=== PATIENT | female | born 1965 | race Caucasian/White ===

== ENCOUNTER → 2016-11-27 | Outpatient (CLI) | payer OTHER ==
[2016-01-14 11:28] VITALS: BP 138/99
--- NOTE | 2016-11-27 16:41 | VAS ---
HISTORY: Left knee pain and swelling with fever for 2 days. Study: Left lower extremity venous Doppler Comparison: None. TECHNIQUE: Real-time dynamic grayscale, color flow and complete spectral Doppler ultrasound examina tion of the major deep venous structures were obtained of the left lower extremity. FINDINGS: Left lower extremity: Real-time examination shows no evidence of thrombus within the common femoral, superficial femoral, or popliteal veins. There is normal compressibility throughout. Color flow dany ging shows normal venous blood flow within the major vessels. Doppler examination shows normal venou s waveforms with appropriate respiratory variation and augmentation. IMPRESSION: 1. Normal left lower extremity venous Doppler, without evidence of DVT. Reported By:
== END ==
LOC: RAD 16:01
PROVIDERS: ATTEND Internal Medicine
DX: M25.562 Pain in left knee (principal); R60.1 Generalized edema
CPT/HCPCS: 93971

== ENCOUNTER → 2017-05-24 | Outpatient (CLI) | payer OTHER ==
[2016-01-14 11:28] VITALS: BP 138/99
--- NOTE | 2017-05-26 16:13 | RAD ---
HISTORY: Preoperative exam for foot surgery Study: Two views of the chest Comparison: None Findings: The trachea is midline. The cardiac silhouette is enlarged. The lungs are clear without focal infil trate or effusion. IMPRESSION: 1. Cardiomegaly. Reported By:
== END | disposition home or self-care (01) ==
LOC: LAB 10:38
PROVIDERS: ATTEND Podiatrist
DX: Z01.810 Encounter for preprocedural cardiovascular examination (principal); Z01.811 Encounter for preprocedural respiratory examination; Z01.812 Encounter for preprocedural laboratory examination; I51.7 Cardiomegaly; M20.12 Hallux valgus (acquired), left foot
CPT/HCPCS: 36415; 71020; 85002

== ENCOUNTER → 2017-08-01 | Outpatient (CLI) | payer OTHER ==
[2016-01-14 11:28] VITALS: BP 138/99
[2017-08-01 18:18] LABS: BLOOD UREA NITROGEN 9 mg/dL (7-18); CARBON DIOXIDE 28.3 mmol/L (21-32); CHLORIDE 102 mmol/L (98-107); CREATININE 0.75 mg/dL (0.55-1.02); PHOSPHORUS 3.2 mg/dL (2.6-4.7); SODIUM 140 mmol/L (136-145); eGFR BLACK RACES > 60 (>60); eGFR NON BLACK RACES > 60 (>60)
== END ==
LOC: LAB 17:45
PROVIDERS: ATTEND Internal Medicine Nephrology
DX: I10 Essential (primary) hypertension (principal)
CPT/HCPCS: 36415; 80069; 82088; 84244

== ENCOUNTER 2017-11-22 10:32 | Emergency (ER) | payer OTHER ==
[2017-11-22 10:36] VITALS: BMI 36.6
[2017-11-22] MEDS ORDERED: ASPIRIN PO ONE (10:43)
[2017-11-22] MEDS ORDERED: NS 1000 ML 1,000 ML IV ONE (10:54)
[2017-11-22 11:05] LABS: BASOPHILS # (AUTO) 0.2 X10^3/uL (0.0-0.1); BASOPHILS % (AUTO) 1.9 % (0.2-1.0); EOSINOPHILS # (AUTO) 0.1 x10^3/uL (0.0-0.2); HEMATOCRIT 36.3 % (36.0-47.0); HEMOGLOBIN 12.8 g/dL (12.0-16.0); LYMPHOCYTES # (AUTO) 2.5 X10^3/uL (1.3-2.9); LYMPHOCYTES % (AUTO) 29.6 % (21.0-51.0); MEAN CORPUSCULAR HEMOGLOBIN 31.2 pg (27.0-34.0); MEAN CORPUSCULAR HGB CONC 35.3 g/dL (33.0-35.0); MEAN CORPUSCULAR VOLUME 88.2 fL (80.0-100.0); MEAN PLATELET VOLUME 6.9 fL (7.4-11.0); MONOCYTES # (AUTO) 0.3 x10^3/uL (0.3-0.8); MONOCYTES % (AUTO) 3.4 % (0.0-13.0); NEUTROPHILS # (AUTO) 5.3 x10^3/uL (2.2-4.8); NEUTROPHILS % (AUTO) 64.1 % (42.0-75.0); PLATELET COUNT 268 X10^3/uL (150.0-450.0); RED BLOOD COUNT 4.11 X10^6/uL (3.5-5.4); RED CELL DISTRIBUTION WIDTH 12.6 % (11.6-16.5); WHITE BLOOD COUNT 8.3 X10^3/uL (3.6-10.0)
[2017-11-22] MEDS ORDERED: NS 1000 ML 1,000 ML ONE (11:06)
[2017-11-22] MEDS ORDERED: ASPIRIN ONE (11:06)
--- NOTE | 2017-11-22 11:13 | RAD ---
Examination: Portable AP chest History: Chest pain Comparison reference 05/24/2017 Findings: Continued normal heart size with clear lungs and pleural spaces. Impression: No significant interval change or acute chest findings. Reported By:
[2017-11-22 11:25] LABS: BLOOD UREA NITROGEN 18 mg/dL (7-18); CALCIUM 9.5 mg/dL (8.5-10.1); CARBON DIOXIDE 27.6 mmol/L (21-32); CHLORIDE 102 mmol/L (98-107); COR NA(FOR HYPERGLY) 141 mmol/L (136-145); CREATININE 1.11 mg/dL (0.55-1.02); SODIUM 140 mmol/L (136-145); TROPONIN I < 0.02 ng/mL (0-1.5); eGFR BLACK RACES > 60 (>60); eGFR NON BLACK RACES 55 (>60)
[2017-11-22 11:28] LABS: ALANINE AMINOTRANSFERASE 30 Units/L (12-78); ALBUMIN 4.1 g/dL (3.4-5.0); ALKALINE PHOSPHATASE 72 Units/L (46-116); ASPARTATE AMINO TRANSFERASE 29 Units/L (15-37); CKMB % 1.6 % (<4); CREATINE KINASE 62 Units/L (26-192); CREATINE KINASE MB < 1.0 ng/mL (0-4.0); MAGNESIUM 1.7 mg/dL (1.7-2.9); TOTAL PROTEIN 8.2 g/dL (6.4-8.2)
[2017-11-22 12:14] VITALS: BP 130/59
--- NOTE | 2017-11-22 12:29 | DR.CP ---
HPI - Time Seen Time seen: 12:20 (seen on arrival to ER room) - PCP Primary Care Physician: TEOFILO - Complaint Chief Complaint:: PT C/O CHEST PAIN STABBING THORUGH TO BACK. PT STATES SHE IS VERY DIZZY AND "DRUNK FEELING". PT STATES SHE HAS BEEN FEELING BAD FOR TWO DAYS , BUT SHE IS JUST WORSE THIS AM. - Source History Provided: Patient - Mode of Arrival Mode of Arrival: Ambulatory - Timing Onset of Chief Complaint: 11/22/17 PMH - PMH Past Medical History: Yes Past Medical History: Dyslipidemia, Hypertension, Kidney Stones, Renal Disease Past Medical History Comment: PE Past Surgical History: Yes Surgical History: Abdominal Surgery, Hysterectomy - Family History History of Family Medical Conditions: Yes Family Medical History: Diabetes Mellitus, Hypertension - Social History Does any household member use tobacco: No Alcohol Use: None Do you use any recreational Drugs:: No Lives With: Family Lives Where: Home - infectious screening In the last 2 months have you had wt loss of >10#?: NO Have you had fever, night sweats or hemotysis?: No Have you traveled outside the country in the last 6 months?: No Isolation: Standard PE - Vitals Vitals: Temperature 98.1 F Pulse Rate 68 Respiratory Rate 18 Blood Pressure [Left Arm] 130/59 Blood Pressure 97/53 O2 Sat by Pulse Oximetry 96 ROR - Labs Reviewed Laboratory Results Reviewed?: Yes (ynesimer, card enzymes neg) Result Diagrams: 11/22/17 10:55 11/22/17 10:55 Laboratory: WBC 8.3 X10^3/uL (3.6-10.0) 11/22/17 10:55 RBC 4.11 X10^6/uL (3.5-5.4) 11/22/17 10:55 Hgb 12.8 g/dL (12.0-16.0) 11/22/17 10:55 Hct 36.3 % (36.0-47.0) 11/22/17 10:55 MCV 88.2 fL (80.0-100.0) 11/22/17 10:55 MCH 31.2 pg (27.0-34.0) 11/22/17 10:55 MCHC 35.3 g/dL (33.0-35.0) H 11/22/17 10:55 RDW 12.6 % (11.6-16.5) 11/22/17 10:55 Plt Count 268 X10^3/uL (150.0-450.0) 11/22/17 10:55 MPV 6.9 fL (7.4-11.0) L 11/22/17 10:55 Neut % (Auto) 64.1 % (42.0-75.0) 11/22/17 10:55 Lymph % (Auto) 29.6 % (21.0-51.0) 11/22/17 10:55 [place] % (Auto) 3.4 % (0.0-13.0) 11/22/17 10:55 Eos % (Auto) 1.0 % (0.9-2.9) 11/22/17 10:55 Baso % (Auto) 1.9 % (0.2-1.0) H 11/22/17 10:55 Neut # (Auto) 5.3 x10^3/uL (2.2-4.8) H 11/22/17 10:55 Lymph # (Auto) 2.5 X10^3/uL (1.3-2.9) 11/22/17 10:55 [place] # (Auto) 0.3 x10^3/uL (0.3-0.8) 11/22/17 10:55 Eos # (Auto) 0.1 x10^3/uL (0.0-0.2) 11/22/17 10:55 Baso # (Auto) 0.2 X10^3/uL (0.0-0.1) H 11/22/17 10:55 Absolute Nucleated RBC 0.0 /100WBC 11/22/17 10:55 INR Target Range - 11/22/17 10:55 INR 0.97 (0.8-1.3) 11/22/17 10:55 APTT 26.9 SECONDS (22.9-36.5) 11/22/17 10:55 PTT Comment - 11/22/17 10:55 D-Dimer 126 ng/mL (0-400) 11/22/17 10:55 Sodium 140 mmol/L (136-145) 11/22/17 10:55 Corrected Sodium 141 mmol/L (136-145) 11/22/17 10:55 Potassium 3.8 mmol/L (3.5-5.1) 11/22/17 10:55 Chloride 102 mmol/L (98-107) 11/22/17 10:55 Carbon Dioxide 27.6 mmol/L (21-32) 11/22/17 10:55 BUN 18 mg/dL (7-18) 11/22/17 10:55 Creatinine 1.11 mg/dL (0.55-1.02) H 11/22/17 10:55 Est GFR (MDRD) Af Amer > 60 (>60) 11/22/17 10:55 Est GFR (MDRD) Non-Af 55 (>60) L 11/22/17 10:55 Glucose 156 mg/dL (65-99) H 11/22/17 10:55 Calcium 9.5 mg/dL (8.5-10.1) 11/22/17 10:55 Corrected Calcium TNP 11/22/17 10:55 Magnesium 1.7 mg/dL (1.7-2.9) 11/22/17 10:55 Total Bilirubin 0.50 mg/dL (0.2-1.0) 11/22/17 10:55 AST 29 Units/L (15-37) 11/22/17 10:55 ALT 30 Units/L (12-78) 11/22/17 10:55 Alkaline Phosphatase 72 Units/L (46-116) 11/22/17 10:55 Creatine Kinase 67 Units/L (26-192) 11/22/17 10:55 CK-MB (CK-2) < 1.0 ng/mL (0-4.0) 11/22/17 10:55 CK/CKMB % Calc 1.5 % (<4) 11/22/17 10:55 Troponin I < 0.02 ng/mL (0-1.5) 11/22/17 10:55 Total Protein 8.2 g/dL (6.4-8.2) 11/22/17 10:55 Albumin 4.1 g/dL (3.4-5.0) 11/22/17 10:55 Globulin 4.1 g/dL (2.5-4.5) 11/22/17 10:55 Albumin/Globulin Ratio 1.0 Ratio (1.1-2.1) L 11/22/17 10:55 - XRAY XRAY Interpreted by: Radiologist Additional Notes - Additional Notes Additional Notes: pt offered admission for r/o but she declines. Feels well now , wants to go home. - Diagnosis Discharge Problem: Volume depletion - Discharge Plan Disposition: 01 HOME, SELF-CARE Condition: Stable - Follow ups/Referrals Follow ups/Referrals: Santana Valle [Primary Care Provider] - 3 days - Instructions
== END 2017-11-22 13:09 | disposition home or self-care (01) ==
LOC: ER 10:38
DX: E86.9 Volume depletion, unspecified (principal); R94.31 Abnormal electrocardiogram [ECG] [EKG]; R07.89 Other chest pain
CPT/HCPCS: 36415; 71045; 80053; 82550; 82553; 83735; 84484; 85025; 85378; 85610; 85730; 93005; 93010; 96365; 99283; A4222

== ENCOUNTER 2018-01-02 17:40 | Emergency (ER) | payer OTHER ==
[2018-01-02 18:02] VITALS: BMI 36.6
--- NOTE | 2018-01-02 18:03 | DR.GENAD ---
HPI - PCP Primary Care Physician: PRISCILLA MIRELES CABINETMAKER APPRENTICE - Complaint/Symptoms Chief Complaint Doctors Comments: Hx. is as noted in nurses notes. She was found unresponsive but aroused with Narcan. She is awake here and talking. Among her home medications she gave upon inquiry includes: Tizanidine, Xanax and Hydrocodone. Chief Complaint:: EMS OUT TO PT UNRESPONSIVE BUT BREATHING, UPON ARRIVAL PER EMS PT WAS BREATHING BUT SHE WAS RESPONSIVE TO VERBAL STIMULI AND PT WAS VERY DROWSY ,,, AND PT WAS TRIED TO WAKE UP BY HER SPOUSE AND SON AND EMS WAS CALLED AND PT WAS GIVEN NARCAN 2 MG IV PER EMS AND PT DID ARROUSE SOME ,,BR SEE NURSES NOTES .. - Nurses notes reviewed Nurses Notes Review: Yes - Source History Provided: Patient, EMS - Mode of Arrival Mode of Arrival: EMS - Timing Onset of Chief Complaint: 01/02/18 PMH - PMH Past Medical History: Yes Past Medical History: Dyslipidemia, Hypertension, Kidney Stones, Renal Disease Past Surgical History: Yes Surgical History: Abdominal Surgery, Hysterectomy - Family History History of Family Medical Conditions: Yes Family Medical History: Diabetes Mellitus, Hypertension - Social History Does patient currently use any type of tobacco product: No Have you used tobacco products in the last 12 months: No Type of Tobacco Use: None Does any household member use tobacco: No Alcohol Use: None Do you use any recreational Drugs:: No Lives With: Family Lives Where: Home - infectious screening In the last 2 months have you had wt loss of >10#?: NO Have you had fever, night sweats or hemotysis?: No Have you traveled outside the country in the last 6 months?: No Isolation: Standard ROS - Review of Systems Constitutional: No Symptoms Reported Eyes: No Symptoms Reported ENTM: No Symptoms Reported Respiratoy: No Symptoms Reported Cardiovascular: No Symptoms Reported Gastrointestinal/Abdominal: No Symptoms Reported Genitourinary: No Symptoms Reported Neurological: Other (Found unresponsive) Musculoskeletal: No Symptoms Reported Integumentary: No Symptoms Reported Hematologic/Lymphatic: No Symptoms Reported Endocrine: No Symptoms Reported Psychiatric: No Symptoms Reported All Other Systems: Reviewed and Negative PE - Vital Signs Vitals: Temperature 98.0 F Pulse Rate [Apical] 85 Pulse Rate [Right Brachial] 99 Pulse Rate 100 Respiratory Rate 14 Blood Pressure [Right Arm] 157/67 Blood Pressure [Left Arm] 155/69 Blood Pressure 150/66 O2 Sat by Pulse Oximetry 97 - General Limitations: No Limitations General Appearance: Alert, In No Apparent Distress, Other (she appears sedated but is easily aroused ) - Head Head Exam: Normal Inspection - Eyes Eye exam: Normal Appearance - ENT ENT Exam: Normal Exam, Normal Oropharynx, Mucous Membranes Dry External Ear Exam: Normal External Inspection - Neck Neck Exam: Normal Inspection, Full ROM, Trachea Midline - Chest Chest Inspection: Normal Inspection - Respiratory Respiratory Exam: Normal Lung Sounds Bilat - Cardiovascular Cardiovascular Exam: Regular Rate, Normal Rhythm, Normal Heart Sounds, +S1, +S2 - Abdominal Exam Abdominal Exam: Normal Inspection, Normal Bowel Sounds, Soft - Extremities Extremities Exam: Normal Inspection - Back Back Exam: Normal Inspection - Neurologic Neurological Exam: Alert, Oriented X3 - Psychiatric Psychiatric Exam: Flat Affect - Skin Skin Exam: Warm, Dry, Intact, Normal Color Course - Reevaluation 1st: Improved 2nd: Resolved - Consultation Consultation Comments: Her presentation and findings were discussed with bridge/structure inspection team leader physician and his recommendation was for her to be d/c home with outpt. f/ u by her provider. - Education/Counseling Education/Counseling: Patient, Family, Education, Counseling Educated On: Treatment, Diagnosis, Prognosis, Needs for Follow Up ROR - Labs Reviewed Result Diagrams: 01/02/18 18:07 01/02/18 18:07 Laboratory: WBC 8.2 X10^3/uL (3.6-10.0) 01/02/18 18:07 RBC 4.13 X10^6/uL (3.5-5.4) 01/02/18 18:07 Hgb 13.0 g/dL (12.0-16.0) 01/02/18 18:07 Hct 36.9 % (36.0-47.0) 01/02/18 18:07 MCV 89.3 fL (80.0-100.0) 01/02/18 18:07 MCH 31.6 pg (27.0-34.0) 01/02/18 18:07 MCHC 35.4 g/dL (33.0-35.0) H 01/02/18 18:07 RDW 12.9 % (11.6-16.5) 01/02/18 18:07 Plt Count 260 X10^3/uL (150.0-450.0) 01/02/18 18:07 MPV 6.7 fL (7.4-11.0) L 01/02/18 18:07 Neut % (Auto) 50.6 % (42.0-75.0) 01/02/18 18:07 Lymph % (Auto) 39.9 % (21.0-51.0) 01/02/18 18:07 [place] % (Auto) 6.6 % (0.0-13.0) 01/02/18 18:07 Eos % (Auto) 1.4 % (0.9-2.9) 01/02/18 18:07 Baso % (Auto) 1.5 % (0.2-1.0) H 01/02/18 18:07 Neut # (Auto) 4.1 x10^3/uL (2.2-4.8) 01/02/18 18:07 Lymph # (Auto) 3.3 X10^3/uL (1.3-2.9) H 01/02/18 18:07 [place] # (Auto) 0.5 x10^3/uL (0.3-0.8) 01/02/18 18:07 Eos # (Auto) 0.1 x10^3/uL (0.0-0.2) 01/02/18 18:07 Baso # (Auto) 0.1 X10^3/uL (0.0-0.1) 01/02/18 18:07 Absolute Nucleated RBC 0.1 /100WBC 01/02/18 18:07 Sodium 140 mmol/L (136-145) 01/02/18 18:07 Corrected Sodium 141 mmol/L (136-145) 01/02/18 18:07 Potassium 3.9 mmol/L (3.5-5.1) 01/02/18 18:07 Chloride 104 mmol/L (98-107) 01/02/18 18:07 Carbon Dioxide 25.2 mmol/L (21-32) 01/02/18 18:07 BUN 16 mg/dL (7-18) 01/02/18 18:07 Creatinine 0.94 mg/dL (0.55-1.02) 01/02/18 18:07 Est GFR (MDRD) Af Amer > 60 (>60) 01/02/18 18:07 Est GFR (MDRD) Non-Af > 60 (>60) 01/02/18 18:07 Glucose 124 mg/dL (65-99) H 01/02/18 18:07 Calcium 8.6 mg/dL (8.5-10.1) 01/02/18 18:07 Corrected Calcium TNP 01/02/18 18:07 Total Bilirubin 0.30 mg/dL (0.2-1.0) 01/02/18 18:07 AST 39 Units/L (15-37) H 01/02/18 18:07 ALT 36 Units/L (12-78) 01/02/18 18:07 Alkaline Phosphatase 66 Units/L (46-116) 01/02/18 18:07 Total Protein 8.1 g/dL (6.4-8.2) 01/02/18 18:07 Albumin 4.1 g/dL (3.4-5.0) 01/02/18 18:07 Globulin 4.0 g/dL (2.5-4.5) 01/02/18 18:07 Albumin/Globulin Ratio 1.0 Ratio (1.1-2.1) L 01/02/18 18:07 Specimen Type Clean catch urine 01/02/18 19:21 Urine Color Yellow (YELLOW) 01/02/18 19:21 Urine Appearance Clear (CLEAR) 01/02/18 19:21 Urine pH 5.0 (5.0 - 8.0) 01/02/18 19:21 Ur Specific [place] 1.010 (1.000-1.030) 01/02/18 19:21 Urine Protein Negative (NEGATIVE) 01/02/18 19:21 Urine Glucose (UA) Negative (NEGATIVE) 01/02/18 19:21 Urine Ketones Negative (NEGATIVE) 01/02/18 19:21 Urine Occult Blood Negative (NEGATIVE) 01/02/18 19:21 Urine Nitrite Negative (NEGATIVE) 01/02/18 19:21 Urine Bilirubin Negative (NEGATIVE) 01/02/18 19:21 Urine Urobilinogen Normal (NORMAL) 01/02/18 19:21 Ur Leukocyte Esterase Negative (NEGATIVE) 01/02/18 19:21 Urine Opiates Screen Positive (NEG=<300) A 01/02/18 19:21 Urine Methadone Screen Negative (NEG=<300) 01/02/18 19:21 Ur Barbiturates Screen Negative (NEG=<200) 01/02/18 19:21 Ur Phencyclidine Scrn Negative (NEG=<25) 01/02/18 19:21 Ur Amphetamines Screen Negative (NEG=<1000) 01/02/18 19:21 U Benzodiazepines Scrn Negative (NEG=<200) 01/02/18 19:21 Urine Cocaine Screen Negative (NEG=<300) 01/02/18 19:21 U Marijuana (THC) Screen Negative (NEG=<50) 01/02/18 19:21 - XRAY XRAY Interpreted by: Radiologist (CT Scan Brain: No acute intracranial hemorrhage.), Self (CXR: NAD) - EKG Rate: 87 [place]: Normal Rhythm: NSR Block: None Hypertrophy: None - Diagnosis Discharge Problem: Altered mental status, Respiratory depression, Drug effect - Discharge Plan Disposition: 01 HOME, SELF-CARE Condition: Stable - Follow ups/Referrals Follow ups/Referrals: Santana Valle [Primary Care Provider] - 3 days - Instructions
[2018-01-02] MEDS ORDERED: ZOFRAN INJ 4 MG VIAL ONE (18:05)
[2018-01-02] MEDS ORDERED: ZOFRAN INJ 4 MG VIAL IVP ONE (18:10)
[2018-01-02 18:17] LABS: BASOPHILS # (AUTO) 0.1 X10^3/uL (0.0-0.1); BASOPHILS % (AUTO) 1.5 % (0.2-1.0); EOSINOPHILS # (AUTO) 0.1 x10^3/uL (0.0-0.2); EOSINOPHILS % (AUTO) 1.4 % (0.9-2.9); HEMATOCRIT 36.9 % (36.0-47.0); LYMPHOCYTES # (AUTO) 3.3 X10^3/uL (1.3-2.9); LYMPHOCYTES % (AUTO) 39.9 % (21.0-51.0); MEAN CORPUSCULAR HEMOGLOBIN 31.6 pg (27.0-34.0); MEAN CORPUSCULAR HGB CONC 35.4 g/dL (33.0-35.0); MEAN CORPUSCULAR VOLUME 89.3 fL (80.0-100.0); MEAN PLATELET VOLUME 6.7 fL (7.4-11.0); MONOCYTES # (AUTO) 0.5 x10^3/uL (0.3-0.8); MONOCYTES % (AUTO) 6.6 % (0.0-13.0); NEUTROPHILS # (AUTO) 4.1 x10^3/uL (2.2-4.8); NEUTROPHILS % (AUTO) 50.6 % (42.0-75.0); PLATELET COUNT 260 X10^3/uL (150.0-450.0); RED BLOOD COUNT 4.13 X10^6/uL (3.5-5.4); RED CELL DISTRIBUTION WIDTH 12.9 % (11.6-16.5); WHITE BLOOD COUNT 8.2 X10^3/uL (3.6-10.0)
--- NOTE | 2018-01-02 18:28 | RAD ---
STUDY: CHEST, ONE VIEW History: Change in mental status. Comparison: November 22, 2017. Findings: The trachea is midline. The lungs are clear of consolidation, significant infiltrate, effusion, or pn eumothorax. The cardiac silhouette, mediastinum and osseous structures are unremarkable. IMPRESSION: 1. No evidence of acute cardiopulmonary abnormality. Reported By:
[2018-01-02 18:31] LABS: ALANINE AMINOTRANSFERASE 36 Units/L (12-78); ALBUMIN 4.1 g/dL (3.4-5.0); ALKALINE PHOSPHATASE 66 Units/L (46-116); BLOOD UREA NITROGEN 16 mg/dL (7-18); CALCIUM 8.6 mg/dL (8.5-10.1); CARBON DIOXIDE 25.2 mmol/L (21-32); CHLORIDE 104 mmol/L (98-107); COR NA(FOR HYPERGLY) 141 mmol/L (136-145); CREATININE 0.94 mg/dL (0.55-1.02); SODIUM 140 mmol/L (136-145); TOTAL PROTEIN 8.1 g/dL (6.4-8.2); eGFR BLACK RACES > 60 (>60); eGFR NON BLACK RACES > 60 (>60)
[2018-01-02 19:24] LABS: ASPARTATE AMINO TRANSFERASE 39 Units/L (15-37)
[2018-01-02 19:29] LABS: BILIRUBIN,URINE NEGATIVE (NEGATIVE); BLOOD/HEMOGLOBIN,URINE NEGATIVE (NEGATIVE); GLUCOSE, URINE NEGATIVE (NEGATIVE); KETONES,URINE NEGATIVE (NEGATIVE); LEUKOCYTE ESTERASE ,URINE NEGATIVE (NEGATIVE); NITRITES,URINE NEGATIVE (NEGATIVE); PROTEIN,URINE NEGATIVE (NEGATIVE); UROBILINOGEN,URINE NORMAL (NORMAL)
[2018-01-02 19:31] LABS: APPEARANCE,URINE CLEAR (CLEAR); COLOR,URINE YELLOW (YELLOW)
--- NOTE | 2018-01-02 19:42 | CT ---
CT head without contrast Indication: Altered mental status Comparison: 01/31/[address] Technique: Axial images from the skullbase to the vertex without contrast. Coronal and sagittal refor mats provided. Findings: There is no acute intracranial hemorrhage, mass or mass effect. No extra-axial fluid collec tion or abnormal area of hypoattenuation suggest large infarct identified. Ventricles and sulci are n ormal. Review of bone windows shows no osseous lesion. Paranasal sinuses and mastoid air cells are cl ear. Impression: No acute intracranial hemorrhage Reported By:
[2018-01-02 20:48] VITALS: BP 168/85
== END 2018-01-02 20:49 | disposition home or self-care (01) ==
LOC: ER 17:43
DX: R41.82 Altered mental status, unspecified (principal); R06.03 Acute respiratory distress; T88.7XXA Unspecified adverse effect of drug or medicament, initial encounter; R94.31 Abnormal electrocardiogram [ECG] [EKG]
CPT/HCPCS: 36415; 70450; 71045; 80053; 80307; 81003; 85025; 93005; 93010; 96365; 96374; 99283; 99285; G0434; J2405

== ENCOUNTER 2022-01-01 12:31 | Inpatient (IN) ==
--- NOTE | 2022-01-01 12:56 | CT ---
HISTORYPossible strokeSTUDYCT brain without contrastCOMPARISONJune 2020 MRITECHNIQUEMultiple axial images of the brain were obtained from the skull base to the vertex [without] administration of IV contrast.Dose reduction techniques including Automated Exposure Control (AEC) and adjustment of mA and kV were utlized.FINDINGS[No acute intraparenchymal hemorrhage or mass can be identified.] [No extra-axial fluid collections are seen.] [No alteration in the attenuation of the brain parenchyma can be identified to suggest acute or subacute ischemic change.] Mild small vessel ischemic changes are noted along with age-appropriate atrophy. [The ventricular system is symmetric and nondilated.] [The extracranial structures are grossly unremarkable.]IMPRESSION[No acute intracranial process can be identified.]Electronically signed by: ROSAURA GERMAIN (January 01, 2022 12:54:32)
[2022-01-01 13:00] VITALS: BMI 38.5
[2022-01-01 13:13] LABS: BASOPHILS % (AUTO) 0.1 % (0.2-1.0); EOSINOPHILS # (AUTO) 0.1 x10^3/uL (0.0-0.2); EOSINOPHILS % (AUTO) 1.1 % (0.9-2.9); HEMATOCRIT 34.5 % (36.0-47.0); HEMOGLOBIN 11.9 g/dL (12.0-16.0); LYMPHOCYTES # (AUTO) 2.6 X10^3/uL (1.3-2.9); LYMPHOCYTES % (AUTO) 27.6 % (21.0-51.0); MEAN CORPUSCULAR HEMOGLOBIN 31.8 pg (27.0-34.0); MEAN CORPUSCULAR HGB CONC 34.4 g/dL (33.0-35.0); MEAN CORPUSCULAR VOLUME 92.5 fL (80.0-100.0); MEAN PLATELET VOLUME 7.6 fL (7.4-11.0); MONOCYTES # (AUTO) 0.7 x10^3/uL (0.3-0.8); MONOCYTES % (AUTO) 7.7 % (0.0-13.0); NEUTROPHILS % (AUTO) 63.5 % (42.0-75.0); RED BLOOD COUNT 3.73 X10^6/uL (3.5-5.4); RED CELL DISTRIBUTION WIDTH 13.2 % (11.6-16.5); WHITE BLOOD COUNT 9.5 X10^3/uL (3.6-10.0)
[2022-01-01] MEDS ORDERED: TORADOL 30 MG VIAL IVP ONE (13:13)
[2022-01-01] MEDS ORDERED: NORFLEX INJ IM ONE (13:13)
--- NOTE | 2022-01-01 13:16 | DR.WEAKNES ---
HPI Time Seen Time Seen by Provider: 01/01/22 13:11 Primary Care Physician Primary Care Physician: DR RED HPI Comment HPI Comment: PATIENT IS 56YR OLD FEMALE WITH HISTORY OF HTN, DM AND TIAS PRESENTS TO ER COMPLAINING OF SLURRED SPEECH, BILATERAL HIP AND LOWER BACK PAIN AND WEAKNESS THAT STARTED LAST NIGHT. NO FEVER OR DYSURIA. FELL 2 WEEKS AGO. S LURRED SPEECH RESOLVE THIS AM. Complaints Chief Complaint Doctors Comments: Lower extremities weakness with bilateral hip pain. slurred speech that has now resolved. Onset last PM Chief Complaint:: "PT C/O BILATERAL HIP PAIN WITH BILATERAL LOWER EXT WEAKNESS, BACK PAIN AND SLURRED SPEECH THAT STARTED LAST NIGHT." ACCORDING TO THE PT THE SLURRED SPEECH HAS RESOLVED. PT DENIES ANY FACIAL DROOPING, UNILATERAL WEAKNESS, AND REPORTS SLURRED SPEECH HAS RESOLVED. REPORTS S/P FALL X 2 WEEKS AGO Reviewed Nurses Notes Reviewed: Yes Source History Provided: Patient Mode of Arrival Mode of Arrival: Wheelchair Timing Onset of Chief Complaint: 12/31/21 Symptom Onset: Known (last PM) Duration Duration: Constant (SLURRED SPEECH RESOLVED) Context Stroke Symptoms: Slurring Location Weakness Location: Right, Left and Leg Associated Signs and Symptoms Associated Signs and Symptoms: denies None PMH PMH Past Medical History: Yes Past Medical History: Diabetes and Hypertension Past Medical History Comment: [place], HIGH CHOLESTEROL, CA IN RIGHT ARM, GERD, TIA Past Surgical History: Yes Surgical History: Hysterectomy Past Surgical History Comment: HEART CATH 12/2021 Family History History of Family Medical Conditions: Yes Family Medical History: Diabetes Mellitus and Hypertension Social History Does patient currently use any type of tobacco product: No Have you used tobacco products in the last 12 months: No Type of Tobacco Use: None Does any household member use tobacco: No Alcohol Use: None Do you use any recreational Drugs:: No Lives With: Spouse Lives Where: Home Travel Risk Coronavirus risk:travel/contact w/high risk person: No Has patient experienced Coronavirus symptoms: No Infectious screening In the last 2 months have you had wt loss of >10#?: NO Have you had fever, night sweats or hemotysis?: No Have you traveled outside the country in the last 6 months?: No Isolation: Standard ROS Review of Systems Constitutional: See HPI and Weakness Eyes: No Symptoms Reported and See HPI ENTM: No Symptoms Reported and See HPI; negative Nose Discharge, Nose Congestion, Drooling or Throat Pain Respiratoy: No Symptoms Reported and See HPI; negative Moist Cough, Short of Breath or Wheezing Cardiovascular: No Symptoms Reported and See HPI; negative Chest Pain Gastrointestinal/Abdominal: negative Abdominal Pain, Nausea or Vomiting Genitourinary: No Symptoms Reported; negative Dysuria Neurological: See HPI and Weakness; negative Headache or Dizziness Musculoskeletal: No Symptoms Reported and See HPI; negative Back Pain Integumentary: No Symptoms Reported, See HPI and Juandice Hematologic/Lymphatic: No Symptoms Reported and See HPI Psychiatric: No Symptoms Reported and See HPI All Other Systems: Reviewed and Negative PE Vital Signs Vitals: Temperature 98.6 F Pulse Rate 78 Respiratory Rate 22 Blood Pressure [Right Arm] 198/73 Blood Pressure 129/58 O2 Sat by Pulse Oximetry 94 General Limitations: No Limitations Head Head Exam Physical: Other (NONE NOTED.) ENT ENT Exam: Normal Oropharynx, Normal External Ear Exam and TM's Normal Bilaterally Mouth Exam: Lip Swelling and Tongue Swelling; negative Drooling or Trismus Throat Exam: Normal Inspection; negative Tonsillar Erythema, Tonsillomegaly or Tonsillar Exudate Neck Neck Exam: Trachea Midline; negative Tenderness Chest Chest Inspection: Normal Inspection and Symmetric Chest Wall Rise; negative Tenderness Respiratory Respiratory Exam: Normal Lung Sounds Bilat; negative Accessory Muscle Use, Chest Wall Tenderness or Respiratory Distress Respiratory Exam: Bilateral: Clear to Auscultation Cardiovascular Cardiovascular Exam: Regular Rate, Normal Rhythm and Normal Heart Sounds; negative Systolic Murmur or Diastolic Murmur Abdominal Exam Abdominal Exam: Normal Bowel Sounds; negative Tenderness Abdominal Tenderness: negative Other (NONE NOTED.) Extremities Extremities Exam: Normal Inspection and Normal Capillary Refill Back Back Exam: negative (R) CVA Tenderness, (L) CVA Tenderness or Paraspinal Tenderness Neurologic Neurological Exam: Alert, Oriented X3 and CN II-XII Intact; negative Motor Sensory Deficit Speech: Fluid Speech Cranial Nerve Exam: EOM Function (II, III, IV, ): Normal, Facial Sensation (V): Normal, Facial Palsy (VII): Normal, Gag reflex (XI): Normal and Tongue Deviation: Normal Motor Strength - LUE: 5/5 Motor Strength - RUE: 5/5 Motor Strength - LLE: 5/5 Motor Strength - RLE: 5/5 Psychiatric Psychiatric Exam: Normal Affect and Normal Mood Skin Skin Exam: Intact MDM Additional Information Obtained Additional Information Obtained From: Old Records Differential Diagnosis Differential Diagnosis: Cabrera's Palsey, CVA, Electrolyte Disorder, Hypoglycemia, Mass Lesion and TIA COURSE Treatment Treatment: SEE ORDERS DONE WHILE PATIENTWAS IN ER. PATIENT GIVEN TORADOL 30MG IV, NORFLEX 60MG IM, ZOFRAN 4MG IV AND ASA 325MG PO WHILE IN ER. LABS, EKG AND XRAY REPORTS DISCUSSED WITH PATIENT. PATIENT HAD TELESTRKE EVALUATION BY NEUROLOGIST. . Consultation Consultation Comments: DISCUSSED PATIENT WITH DR. RED. HE WILL ADMIT PATIENT. Education/Counseling Education/Counseling: Patient Educated On: Diagnosis ROR Labs Reviewed Laboratory Results Reviewed?: Yes Result Diagrams: 01/05/22 05:26 01/05/22 05:26 Laboratory: WBC 9.5 X10^3/uL (3.6-10.0) 01/01/22 13:00 RBC 3.73 X10^6/uL (3.5-5.4) 01/01/22 13:00 Hgb 11.9 g/dL (12.0-16.0) L 01/01/22 13:00 Hct 34.5 % (36.0-47.0) L 01/01/22 13:00 MCV 92.5 fL (80.0-100.0) 01/01/22 13:00 MCH 31.8 pg (27.0-34.0) 01/01/22 13:00 MCHC 34.4 g/dL (33.0-35.0) 01/01/22 13:00 RDW 13.2 % (11.6-16.5) 01/01/22 13:00 Plt Count 232 X10^3/uL (150.0-450.0) 01/01/22 13:00 MPV 7.6 fL (7.4-11.0) 01/01/22 13:00 Neut % (Auto) 63.5 % (42.0-75.0) 01/01/22 13:00 Lymph % (Auto) 27.6 % (21.0-51.0) 01/01/22 13:00 [place] % (Auto) 7.7 % (0.0-13.0) 01/01/22 13:00 Eos % (Auto) 1.1 % (0.9-2.9) 01/01/22 13:00 Baso % (Auto) 0.1 % (0.2-1.0) L 01/01/22 13:00 Neut # (Auto) 6.0 x10^3/uL (2.2-4.8) H 01/01/22 13:00 Lymph # (Auto) 2.6 X10^3/uL (1.3-2.9) 01/01/22 13:00 [place] # (Auto) 0.7 x10^3/uL (0.3-0.8) 01/01/22 13:00 Eos # (Auto) 0.1 x10^3/uL (0.0-0.2) 01/01/22 13:00 Baso # (Auto) 0.0 X10^3/uL (0.0-0.1) 01/01/22 13:00 Absolute Nucleated RBC 0.0 /100WBC 01/01/22 13:00 PT 13.7 SECONDS (11.8-14.3) 01/01/22 13:00 INR Target Range - 01/01/22 13:00 INR 1.08 (0.8-1.3) 01/01/22 13:00 APTT 25.7 SECONDS (22.9-36.5) 01/01/22 13:00 PTT Comment - 01/01/22 13:00 Fibrinogen 287 mg/dL (239-489) 01/01/22 13:00 Sodium 139 mmol/L (136-145) 01/01/22 13:00 Corrected Sodium 139 mmol/L (136-145) 01/01/22 13:00 Potassium 4.7 mmol/L (3.5-5.1) 01/01/22 13:00 Chloride 103 mmol/L (98-107) 01/01/22 13:00 Carbon Dioxide 26.5 mmol/L (21-32) 01/01/22 13:00 BUN 44 mg/dL (7-18) H 01/01/22 13:00 Creatinine 2.24 mg/dL (0.55-1.02) H 01/01/22 13:00 Est GFR (MDRD) Af Amer 29 (>60) L 01/01/22 13:00 Est GFR (MDRD) Non-Af 24 (>60) L 01/01/22 13:00 Glucose 120 mg/dL (65-99) H 01/01/22 13:00 POC Glucose (mg/dL) 117 mg/dL (65-99) H 01/01/22 12:48 Calcium 9.3 mg/dL (8.5-10.1) 01/01/22 13:00 Corrected Calcium TNP 01/01/22 13:00 Total Bilirubin 0.30 mg/dL (0.2-1.0) 01/01/22 13:00 AST 193 Units/L (15-37) H 01/01/22 13:00 ALT 38 Units/L (12-78) 01/01/22 13:00 Alkaline Phosphatase 81 Units/L (46-116) 01/01/22 13:00 Total Protein 7.9 g/dL (6.4-8.2) 01/01/22 13:00 Albumin 4.2 g/dL (3.4-5.0) 01/01/22 13:00 Globulin 3.7 g/dL (2.5-4.5) 01/01/22 13:00 Albumin/Globulin Ratio 1.1 Ratio (1.1-2.1) 01/01/22 13:00 Triglycerides 419 mg/dL (0-150) H 01/01/22 13:00 Cholesterol 233 mg/dL (0-200) H 01/01/22 13:00 LDL Cholesterol, Calc 107 mg/dL (0-100) H 01/01/22 13:00 HDL Cholesterol 42 mg/dL (40-60) 01/01/22 13:00 Cholesterol/HDL Ratio 5.5 (0.0-5.0) H 01/01/22 13:00 SARS-CoV-2 (PCR) Negative (NEGATIVE) 01/01/22 15:13 XRAY XRAY Interpreted by: Radiologist (REPORT NOTED.) and Self EKG Rate: 75 [place]: Normal Rhythm: NSR Block: None Hypertrophy: LVH ST: Nonsp Opioid Opioid Risk Tool Age (Hans box if 16-45): No History of Preadolescent Sexual Abuse: No Total: 0 Total Score Risk Category: Low Risk Copyright: [facility] predicting aberrant behaviors Diagnosis Discharge Problem: Rhabdomyolysis, Brain TIA, Bilateral hip pain, History of dysarthria
[2022-01-01 13:22] LABS: ALANINE AMINOTRANSFERASE 38 Units/L (12-78); ALBUMIN 4.2 g/dL (3.4-5.0); ALKALINE PHOSPHATASE 81 Units/L (46-116); ASPARTATE AMINO TRANSFERASE 193 Units/L (15-37); BLOOD UREA NITROGEN 44 mg/dL (7-18); CALCIUM 9.3 mg/dL (8.5-10.1); CARBON DIOXIDE 26.5 mmol/L (21-32); CHLORIDE 103 mmol/L (98-107); CHOL/HDL RATIO 5.5 (0.0-5.0); CHOLESTEROL 233 mg/dL (0-200); COR NA(FOR HYPERGLY) 139 mmol/L (136-145); CREATININE 2.24 mg/dL (0.55-1.02); HDL CHOLESTEROL 42 mg/dL (40-60); SODIUM 139 mmol/L (136-145); TOTAL PROTEIN 7.9 g/dL (6.4-8.2); TRIGLYCERIDES 419 mg/dL (0-150); eGFR NON BLACK RACES 24 (>60)
[2022-01-01] MEDS ORDERED: ASPIRIN ONE (13:24)
[2022-01-01] MEDS ORDERED: NORFLEX INJ ONE (13:25)
[2022-01-01] MEDS ORDERED: TORADOL 30 MG VIAL ONE (13:25)
[2022-01-01] MEDS: ASPIRIN PO SCH (13:27)
[2022-01-01] MEDS ORDERED: ZOFRAN INJ 4 MG VIAL IVP ONE (13:42)
[2022-01-01] MEDS ORDERED: ZOFRAN INJ 4 MG VIAL ONE (13:47)
--- NOTE | 2022-01-01 14:56 | RAD ---
HISTORYBILATERAL HIP PAINSTUDYHIPS BILATERALCOMPARISONNoneTECHNIQUEAP and frogleg views of the pelvis.FINDINGSMild bilateral hip osteoarthrosis with coxa profunda. Patient is tilted within the scanner. SI joints appear preserved. Mild pubic symphysis osteoarthrosis. Calcifications in the pelvis are likely phleboliths. No acute fracture or aggressive osseous lesion.IMPRESSIONMild bilateral hip osteoarthrosis with coxa profunda. No acute fracture.Electronically signed by: Micky Tran (January 01, 2022 14:56:02)
[2022-01-01] MEDS ORDERED: CATAPRES TAB 0.1 MG PO PRN (16:50)
[2022-01-01] MEDS: NS 1,000 ML IV 1,000 ML IV SCH (17:59)
[2022-01-01] MEDS: NORCO 10/325 TAB PO PRN (18:05)
[2022-01-01 18:11] LABS: BILIRUBIN,URINE NEGATIVE (NEGATIVE); BLOOD/HEMOGLOBIN,URINE 2+ (NEGATIVE); GLUCOSE, URINE NEGATIVE (NEGATIVE); KETONES,URINE NEGATIVE (NEGATIVE); LEUKOCYTE ESTERASE ,URINE NEGATIVE (NEGATIVE); NITRITES,URINE NEGATIVE (NEGATIVE); PROTEIN,URINE 1+ (NEGATIVE); UROBILINOGEN,URINE NORMAL (NORMAL)
[2022-01-01 18:20] LABS: APPEARANCE,URINE SLIGHTLY HAZY (CLEAR); BACTERIA,URINE 1+ /HPF (NEGATIVE); COLOR,URINE YELLOW (YELLOW); SQUAMOUS EPITHELIAL CELL,UR MANY /HPF (NEGATIVE)
[2022-01-01 18:21] LABS: HYALINE CASTS, URINE FEW /LPF (NEGATIVE)
[2022-01-01 19:29] LABS: CREATINE KINASE MB 68.1 ng/mL (0-4.0)
--- NOTE | 2022-01-01 19:42 | DR.CONSULT ---
CONSULT Consultation for Day of: Date: 01/01/22 Chief Complaint Chief Complaint: weakness Allergies Allergies Allergy/AdvReac Type Severity Reaction Status Date / Time No Known Drug Allergies Allergy Verified 03/29/21 14:27 History of Present Illness History of Present Illness: [facility] Services Date of Service: 01/01/2022 12:32:40 Diagnosis: R53.1 - Weakness I63.9 - Cerebrovascular accident (CVA), unspecified mechanism (HCC) Impression: Patient is a 56 y/o R HW brought in by daughter for difficulty walking, being weak in both her legs. Not a candidate for tpa given time from onset. She does have a history of TIAs. NIHSS 2, for b/l leg pain. Since last night, she has been having hip pain since last night and that is when weakness started. She fell at the doorsteps, she was walking down the steps she fell. Stroke versus hip pain/weakness. Xray hip. Stroke work up. Brain MR, no CTA given low NIHSS scale. Neurology to follow along. Metrics: Last Known Well: 12/31/2021 18:00:00 [facility] Notification Time: 01/01/2022 12:32:39 Arrival Time: 01/01/2022 12:32:00 Stamp Time: 01/01/2022 12:32:40 Initial Response Time: 01/01/2022 12:35:00 Symptoms: Difficulty walking and weakness. NIHSS Start Assessment Time: 01/01/2022 12:43:00 Patient is not a candidate for Thrombolytic. Thrombolytic Medical Decision: 01/01/2022 12:38:00 Patient was not deemed candidate for Thrombolytic because of following reasons: Last Well Known Above 4.5 Hours. No disabling symptoms. CT head showed no acute hemorrhage or acute core infarct. ED Physician notified of diagnostic impression and management plan on 01/01/2022 13:00:00 Advanced Imaging: Advanced Imaging Not Recommended because: Clinical presentation is not suggestion of LVO or Low clinical suspicion of LVO based on presentation Our recommendations are outlined below. Recommendations: Stroke/Telemetry Floor Neuro Checks Bedside Swallow Eval DVT Prophylaxis IV Fluids, Normal Saline Head of Bed 30 Degrees Euglycemia and Avoid Hyperthermia (PRN Acetaminophen) Antihypertensives PRN if Blood pressure is greater than 220/120 or there is a concern for End organ damage/contraindications for permissive HTN. If blood pressure is greater than 220/120 give labetalol PO or IV or Vasotec IV with a goal of 15% reduction in BP during the first 24 hours. Routine Consultation with Inhouse Neurology for Follow up Care Sign Out: Discussed with Emergency Department Provider Discussed with Rapid Response Team History of Present Illness: Patient is a 56 year old Female. Patient was brought by private transportation with symptoms of Difficulty walking and weakness. Patient is a 56 y/o R HW brought in by daughter for difficulty walking, being weak in both her legs. Not a candidate for tpa given time from onset. She does have a history of TIAs. NIHSS 2, for b/l leg pain. Since last night, she has been having hip pain since last night and that is when weakness started. She fell at the doorsteps, she was walking down the steps she fell. Last seen normal was beyond 4.5 hours of presentation. There is no history of hemorrhagic complications or intracranial hemorrhage. There is no history of Recent Anticoagulants. There is no history of recent major surgery. There is no history of recent stroke. Past Medical History: TIA Social History: Smoking: No Alcohol Use: No Drug Use: No Family History: she has TIA, father with stroke Review of System: 14 Points Review of Systems was performed and was negative except mentioned in HPI. Anticoagulant use: No Antiplatelet use: Yes ASA 325mg Allergies: Reviewed,NKDA Examination: BP(144/62), Pulse(78), Blood Glucose(120) 1A: Level of Consciousness - Alert; keenly responsive + 0 1B: Ask Month and Age - Both Questions Right + 0 1C: Blink Eyes & Squeeze Hands - Performs Both Tasks + 0 2: Test Horizontal Extraocular Movements - Normal + 0 3: Test Visual Levi - No Visual Loss + 0 4: Test Facial Palsy (Use Grimace if Obtunded) - Normal symmetry + 0 5A: Test Left Arm Motor Drift - No Drift for 10 Seconds + 0 5B: Test Right Arm Motor Drift - No Drift for 10 Seconds + 0 6A: Test Left Leg Motor Drift - Drift, but doesn't hit bed + 1 6B: Test Right Leg Motor Drift - Drift, but doesn't hit bed + 1 7: Test Limb Ataxia (FNF/Heel-Morin) - No Ataxia + 0 8: Test Sensation - Normal; No sensory loss + 0 9: Test Language/Aphasia - Normal; No aphasia + 0 10: Test Dysarthria - Normal + 0 11: Test Extinction/Inattention - No abnormality + 0 NIHSS Score: 2 NIHSS Free Text : R strength is slightly weaker than Left. Pre-Morbid Modified [place] Scale: 0 Points = No symptoms at all Patient/Family was informed the Neurology Consult would occur via TeleHealth consult by way of interactive audio and video telecommunications and consented to receiving care in this manner. Patient is being evaluated for possible acute neurologic impairment and high probability of imminent or life-threatening deterioration. I spent total of 50 minutes providing care to this patient, including time for face to face visit via telemedicine, review of medical records, imaging studies and discussion of findings with providers, the patient and/or family. Dr John Griffiths [facility] Case [id number] Past Medical History Past Medical History: Diabetes and Hypertension Past Surgical History Surgical History: Hysterectomy Family History Family Medical History: Cancer Social History Does patient currently use any type of tobacco product: No Have you used tobacco products in the last 12 months: No Type of Tobacco Use: None Does any household member use tobacco: No Alcohol Use: None Medications Home Medications: No Known Drug Allergies Allergy (Verified 03/29/21 14:27) CONTINUE taking the following medications acetaminophen-codeine 1 tab PO Q6HR PRN 01/01/22 [History] clonidine HCl 0.1 mg PO DAILY PRN 01/01/22 [History] gabapentin 300 mg PO TID PRN 01/01/22 [History] omeprazole [Prilosec] 20 mg PO BID 01/01/22 [History] pantoprazole [Protonix] 40 mg PO DAILY 01/01/22 [History] promethazine 25 mg PO Q4-6H PRN 01/01/22 [History] rosuvastatin [Crestor] 20 mg PO HS 01/01/22 [History] tizanidine [Zanaflex] 4 mg PO TID PRN 01/01/22 [History] verapamil 240 mg PO DAILY 01/01/22 [History] Physical Exam Vital Signs: Temperature 97.8 F Pulse Rate [Right Brachial] 82 Pulse Rate 79 Respiratory Rate 18 Blood Pressure [Right Arm] 126/66 Blood Pressure 129/61 O2 Sat by Pulse Oximetry 100
[2022-01-01 20:07] LABS: CKMB % 0.6 % (<4)
[2022-01-01] MEDS ORDERED: CRESTOR TAB 10 MG PO SCH (21:00)
[2022-01-01] MEDS ORDERED: GLUCOPHAGE ONE (21:24)
[2022-01-01] MEDS: NEURONTIN CAP 300 MG PO PRN (22:01)
[2022-01-01] MEDS: VASOTEC TAB 20 MG PO SCH (22:02)
[2022-01-01] MEDS: PriLOSEC PO SCH (22:02)
[2022-01-01] MEDS: GLUCOPHAGE PO SCH (22:02)
[2022-01-01] MEDS: XANAX PO PRN (22:03)
[2022-01-02 01:50] LABS: CREATINE KINASE MB 41.3 ng/mL (0-4.0)
[2022-01-02 02:09] LABS: CKMB % 0.6 % (<4)
[2022-01-02 05:57] LABS: BASOPHILS # (AUTO) 0.1 X10^3/uL (0.0-0.1); BASOPHILS % (AUTO) 0.9 % (0.2-1.0); EOSINOPHILS # (AUTO) 0.1 x10^3/uL (0.0-0.2); HEMATOCRIT 35.5 % (36.0-47.0); HEMOGLOBIN 12.2 g/dL (12.0-16.0); LYMPHOCYTES # (AUTO) 2.3 X10^3/uL (1.3-2.9); LYMPHOCYTES % (AUTO) 27.3 % (21.0-51.0); MEAN CORPUSCULAR HEMOGLOBIN 31.8 pg (27.0-34.0); MEAN CORPUSCULAR HGB CONC 34.3 g/dL (33.0-35.0); MEAN CORPUSCULAR VOLUME 92.8 fL (80.0-100.0); MEAN PLATELET VOLUME 7.6 fL (7.4-11.0); MONOCYTES # (AUTO) 0.5 x10^3/uL (0.3-0.8); MONOCYTES % (AUTO) 5.5 % (0.0-13.0); NEUTROPHILS # (AUTO) 5.5 x10^3/uL (2.2-4.8); NEUTROPHILS % (AUTO) 65.3 % (42.0-75.0); RED BLOOD COUNT 3.83 X10^6/uL (3.5-5.4); RED CELL DISTRIBUTION WIDTH 12.9 % (11.6-16.5); WHITE BLOOD COUNT 8.3 X10^3/uL (3.6-10.0)
[2022-01-02 06:05] LABS: ALANINE AMINOTRANSFERASE 36 Units/L (12-78); ALKALINE PHOSPHATASE 83 Units/L (46-116); ASPARTATE AMINO TRANSFERASE 166 Units/L (15-37); BLOOD UREA NITROGEN 36 mg/dL (7-18); CALCIUM 8.9 mg/dL (8.5-10.1); CARBON DIOXIDE 27.2 mmol/L (21-32); CHLORIDE 104 mmol/L (98-107); COR NA(FOR HYPERGLY) 140 mmol/L (136-145); CREATININE 1.26 mg/dL (0.55-1.02); MAGNESIUM 1.3 mg/dL (1.7-2.9); SODIUM 138 mmol/L (136-145); TOTAL PROTEIN 7.7 g/dL (6.4-8.2); eGFR NON BLACK RACES 47 (>60)
[2022-01-02] MEDS ORDERED: PROTONIX TAB 40 MG PO SCH (09:00)
[2022-01-02] MEDS ORDERED: GLUCOPHAGE ONE ×2 (09:52→20:15)
[2022-01-02] MEDS: ASPIRIN PO SCH (10:03)
[2022-01-02] MEDS: TOPROL XL PO SCH (10:04)
[2022-01-02] MEDS: PriLOSEC PO SCH ×2 (10:04→20:36)
[2022-01-02] MEDS: VASOTEC TAB 20 MG PO SCH ×2 (10:04→20:36)
[2022-01-02] MEDS: GLUCOPHAGE PO SCH ×2 (10:04→20:36)
[2022-01-02] MEDS: CALAN SR 240 MG PO SCH (10:05)
[2022-01-02] MEDS: NS 1,000 ML IV 1,000 ML IV SCH ×2 (12:32→19:59)
[2022-01-02] MEDS: NORCO 10/325 TAB PO PRN ×2 (12:39→20:36)
--- NOTE | 2022-01-02 18:33 | DR.H&P ---
H&P - History & Physical for Day of: H&P Date: 01/01/22 - Chief Complaint Chief Complaint: BILATERAL HIP PAIN, LOWER EXTREMITY WEAKNESS, SLURRED SPEECH - History of Present Illness History of Present Illness: IS A 56 YEAR OLD PATIENT OF OURS. SHE PRESENTED TO THE ER WITH COMPLAINTS OF BILATERAL HIP PAIN, LOWER EXTREMITY WEAKNESS, LOW BACK PAIN, AND SLURRED SPEECH. SYMPTOMS STARTED ONE NIGHT PRIOR TO ARRIVAL. BY THE TIME THAT SHE PRESENTED TO THE ER, THE SLURRED SPEECH HAD IMPROVED. SHE REPORTS FALLING TWO WEEKS BEFORE. HER PMH INCLUDES HTN, DM II, ID, GERD, TIA, HIGH CHOLESTEROL. SHE IS FOLLOWED BY , PHYSICAL THERAPIST CLINIC DIRECTOR. SHE HAD A HEART CATH EARLIER IN THE MONTH AND A NECK CTA LAST MONTH. WORK-UP WAS CLEAR. ON ARRIVAL TO THE ER, VITALS WERE 98.6-78-15-95%-144/60. LABS WERE OBTAINED. WBC 9.5, RBC 3.73, HGB 11.9, HCT 34.5, PT/INR AND PTT WERE WITHIN NORMAL LIMITS. SODIUM 139, POTASSIUM 4.7, CHLORIDE 103, CARBON DIOXIDE 26.5, BUN 44, CREATININE 2.24, GLUCOSE 120, CALCIUM 9.3, TOTAL BILI 0.30, AST 193, ALT 38, ALK PHOS 81, TOTAL PROTEIN 7.9, ALBUMIN 4.2, TRIGLYCERIDES 419, CHOLESTEROL 233, LDL 107, CREATINE KINASE 43956, CK-MB 68.1, TROPONIN 15.7. URINALYSIS REVEALED: 0-2 WBC, RBC 3-5, BACTERIA 1+, LEUKOCYTES NEGATIVE. COVID-[address] WAS OBTAINED AND WAS NEGATIVE FOR ACUTE PROCESS. EKG REVEALED NSR WITH HR 75. BILATERAL HIP XRAYS WERE OBTAINED AND REVEALED: Mild bilateral hip osteoarthrosis with coxa profunda. No acute fracture. A TELENEUROLOGY CONSULT WAS DONE. NEUROLOGIST RECOMMENDED Q1H NEURO CHECKS AND ANTIHYPERTENSIVES NEEDED. PATIENT WAS ADMITTED FOR FURTHER EVALUATION AND TREATMENT OF RHABDOMYOLYSIS, TIA, AND BILATERAL HIP PAIN. SHE WAS STARTED ON NORMAL SALINE AT 125ML/HR AND HER HOME MEDICATIONS WERE RESUMED, WITH THE EXCEPTION OF THE CRESTOR, THIS MAY BE THE CAUSE OF THE RHABDO. WE WILL REPEAT CREATINE KINASE, CBC, CMP, AND MAG IN THE MORNING. TIME SPENT ON CLINICAL ASSESSMENT, REVIEWING LABS AND IMAGING, DECISION MAKING, AND DOCUMENTATION GREATER THAN 75 MINUTES. - Past Medical History Past Medical History: Diabetes, Dyslipidemia, GERD, Hypertension, ID Additional Medical History: TIA - Past Surgical History Surgical History: Hysterectomy - Family History Family Medical History: Cancer - Social History Does patient currently use any type of tobacco product: No Have you used tobacco products in the last 12 months: No Type of Tobacco Use: None Does any household member use tobacco: No Alcohol Use: None - Medications Home Medications: No Known Drug Allergies Allergy (Verified 03/29/21 14:27) CONTINUE taking the following medications acetaminophen-codeine 1 tab PO Q6HR PRN 01/01/22 [History] clonidine HCl 0.1 mg PO DAILY PRN 01/01/22 [History] gabapentin 300 mg PO TID PRN 01/01/22 [History] omeprazole [Prilosec] 20 mg PO BID 01/01/22 [History] pantoprazole [Protonix] 40 mg PO DAILY 01/01/22 [History] promethazine 25 mg PO Q4-6H PRN 01/01/22 [History] rosuvastatin [Crestor] 20 mg PO HS 01/01/22 [History] tizanidine [Zanaflex] 4 mg PO TID PRN 01/01/22 [History] verapamil 240 mg PO DAILY 01/01/22 [History] - Review of Systems Constitutional: Weakness Eyes: No Symptoms Reported ENT: No Symptoms Reported Respiratory: No Symptoms Reported Cardiovascular: No Symptoms Reported Gastrointestinal: No Symptoms Reported Genitourinary: No Symptoms Reported Musculoskeletal: See HPI, Back Pain, Leg Pain, Other (HIP PAIN ) Skin: No Symptoms Reported Neurological: See HPI, Weakness, Change in Speech - Physical Exam Vital Signs: Temperature 97.8 F Pulse Rate [Right Brachial] 87 Pulse Rate 79 Respiratory Rate 20 Blood Pressure [Right Arm] 129/74 Blood Pressure 129/61 O2 Sat by Pulse Oximetry 96 Oriented: Normal Eyes: Normal Ear: Normal Nose: Normal Throat: Normal Respiratory: Clear Throughout Cardiovascular: Normal : Normal Auscultation: Bowel Sounds: Normal Palpation: Normal Tenderness: Normal Skin: Normal Musculoskeletal: Right, Left, Hip, Leg, Back:Lumbar, Tender Psychiatric: Normal Mood Description: Calm Affect: Normal Speech Pattern: Clear - Assessment/Plan (1) Rhabdomyolysis Qualifiers: Rhabdomyolysis type: non-traumatic Qualified Code(s): M62.82 - Rhabdomyolysis Status: Acute Plan: ADMIT, NORMAL SALINE AT 125ML/HR AND HER HOME MEDICATIONS WERE RESUMED, WITH THE EXCEPTION OF THE CRESTOR. MONITOR CBC, CMP, CREATINE KINASE (2) TIA (transient ischemic attack) Status: Acute Plan: NEURO CHECKS (3) Bilateral hip pain Status: Chronic Plan: CONTINUE HOME MEDS (4) Essential hypertension Status: Chronic (5) Gastroesophageal reflux disease Status: Chronic - Allergies Allergies/Adverse Reactions: Allergies Allergy/AdvReac Type Severity Reaction Status Date / Time No Known Drug Allergies Allergy Verified 03/29/21 14:27
[2022-01-02] MEDS: ZANAFLEX PO PRN (18:35)
[2022-01-02] MEDS: NEURONTIN CAP 300 MG PO PRN (20:36)
[2022-01-02] MEDS: XANAX PO PRN (20:37)
[2022-01-03] MEDS: NS 1,000 ML IV 1,000 ML IV SCH ×4 (04:55→23:15)
[2022-01-03 06:16] LABS: BASOPHILS % (AUTO) 0.5 % (0.2-1.0); EOSINOPHILS # (AUTO) 0.1 x10^3/uL (0.0-0.2); EOSINOPHILS % (AUTO) 1.4 % (0.9-2.9); HEMATOCRIT 31.3 % (36.0-47.0); HEMOGLOBIN 10.8 g/dL (12.0-16.0); LYMPHOCYTES # (AUTO) 2.5 X10^3/uL (1.3-2.9); LYMPHOCYTES % (AUTO) 42.4 % (21.0-51.0); MEAN CORPUSCULAR HEMOGLOBIN 32.2 pg (27.0-34.0); MEAN CORPUSCULAR HGB CONC 34.6 g/dL (33.0-35.0); MEAN CORPUSCULAR VOLUME 92.9 fL (80.0-100.0); MEAN PLATELET VOLUME 7.5 fL (7.4-11.0); MONOCYTES # (AUTO) 0.3 x10^3/uL (0.3-0.8); MONOCYTES % (AUTO) 5.6 % (0.0-13.0); NEUTROPHILS # (AUTO) 2.9 x10^3/uL (2.2-4.8); NEUTROPHILS % (AUTO) 50.1 % (42.0-75.0); RED BLOOD COUNT 3.37 X10^6/uL (3.5-5.4); WHITE BLOOD COUNT 5.8 X10^3/uL (3.6-10.0)
[2022-01-03] MEDS: NORCO 10/325 TAB PO PRN ×2 (06:18→13:30)
[2022-01-03 06:39] LABS: ALANINE AMINOTRANSFERASE 37 Units/L (12-78); ALBUMIN 3.4 g/dL (3.4-5.0); ALKALINE PHOSPHATASE 72 Units/L (46-116); ASPARTATE AMINO TRANSFERASE 102 Units/L (15-37); BLOOD UREA NITROGEN 24 mg/dL (7-18); CALCIUM 8.3 mg/dL (8.5-10.1); CARBON DIOXIDE 25.9 mmol/L (21-32); CHLORIDE 107 mmol/L (98-107); COR NA(FOR HYPERGLY) 140 mmol/L (136-145); CREATININE 1.02 mg/dL (0.55-1.02); MAGNESIUM 1.3 mg/dL (1.7-2.9); SODIUM 139 mmol/L (136-145); TOTAL PROTEIN 6.8 g/dL (6.4-8.2); eGFR NON BLACK RACES 59 (>60)
[2022-01-03 06:40] LABS: CREATINE KINASE 2664 Units/L (26-192)
[2022-01-03] MEDS ORDERED: GLUCOPHAGE ONE ×2 (08:00→20:21)
[2022-01-03] MEDS: ASPIRIN PO SCH (09:46)
[2022-01-03] MEDS: GLUCOPHAGE PO SCH ×2 (09:46→20:55)
[2022-01-03] MEDS: PriLOSEC PO SCH ×2 (09:47→20:56)
[2022-01-03] MEDS: CALAN SR 240 MG PO SCH (09:47)
[2022-01-03] MEDS: TOPROL XL PO SCH (09:48)
[2022-01-03] MEDS: VASOTEC TAB 20 MG PO SCH ×2 (09:48→20:57)
[2022-01-03] MEDS: TORADOL 15 MG VIAL IVP SCH ×2 (09:55→18:04)
[2022-01-03] MEDS: MAGNESIUM SULFATE 1 GRAM/100 mL PREMIX 1 G/100 ML BAG IV PRN ×4 (09:59→15:15)
[2022-01-03] MEDS: ZANAFLEX PO PRN ×2 (11:09→16:16)
--- NOTE | 2022-01-03 20:18 | PCM.PROG ---
Progress Note - Progress Note for Day of Date of Exam: 01/02/22 - Subjective Subjective: WAS ADMITTED INPATIENT STATUS FOR TREATMENT OF RHABDOMYOLYSIS, TIA, INTRACTABLE HIP PAIN. SHE HAS A PMH OF HTN, GERD, LA, HYPERLIPIDEMIA. SHE HAD A TELENEUROLOGY CONSULT ON ADMISSION AND WAS CLEARED BY NEUROLOGIST. TODAY, SHE IS ALERT AND ORIENTED, LYING IN BED ON MORNING ROUNDS. SHE CONTINUE WITH COMPLAINTS OF BILATERAL HIP PAIN AND LEG WEAKNESS. SHE ALSO REPORTS LOW BACK PAIN AT TIMES. ON EXAMINATION, HEART IS REGULAR IN RATE AND RHYTHM. BILATERAL LUNGS ARE CLEAR TO AUSCULTATION. ABDOMEN IS ROUND, SOFT, AND NON-TENDER WITH NORMAL BOWEL SOUNDS NOTED IN ALL QUADRANTS. TENDERNESS NOTED TO BILATERAL HIPS. PAIN IS WORSE WITH MOVEMENT AND BEARING WEIGHT. SHE DOES HAVE A HISTORY OF OSTEOARTHRITIS. TENDERNESS NOTED TO LUMBAR-SACRAL AREA. GOOD MOVEMENT AND STRENGTH NOTED TO LOWER EXTREMITIES. NO UPPER OR LOWER EXTREMITY EDEMA NOTED. HER VITALS THIS MORNING ARE: 98.1-83-20-93%-106/53. LABS WERE OBTAINED. WBC 8.3, RBC 3.83, HGB 12.2, HCT 35.5, PLT COUNT 222, SODIUM 138, POTASSIUM 4.5, CHLORIDE 104, BUN 36, CREATININE 1.26, GLUCOSE 163, CALCIUM 8.9, MAGNESIUM 1.3, TOTAL BILI 0.40, AST 166, ALT 36, ALK PHOS 83, TOTAL PROTEIN 7.7, ALBUMIN 4.0, CREATINE KINASE 7440, CK-MB 41.3. SHE IS CURRENTLY RECEIVING NORMAL SALINE AT 125ML/HR AND HER HOME MEDICATIONS WERE RESUMED, WITH THE EXCEPTION OF THE CRESTOR, THIS MAY BE THE CAUSE OF THE RHABDO. OTHERWISE, WE WILL CONTINUE W ITH CURRENT PLAN OF CARE TODAY. WE PLAN TO FOLLOW-UP WITH AM LABS AND CONTINUE TO MONITOR. TIME SPENT ON CLINICAL ASSESSMENT, REVIEWING LABS AND IMAGING, DECISION MAKING, AND DOCUMENTATION GREATER THAN 45 MINUTES. - Past Medical Family Social History Past Med/Fam/Surg Hx: No changes since H&P Allergies: Allergies No Known Drug Allergies Allergy (Verified 03/29/21 14:27) - Review of Systems ROS: No change since H&P - Vital Signs and I&O's Vital Signs: Temperature 97.8 F Pulse Rate [Right Brachial] 65 Pulse Rate 79 Respiratory Rate 20 Blood Pressure [Right Arm] 103/49 Blood Pressure 129/61 O2 Sat by Pulse Oximetry 96 Intake and Output: Intake & Output 01/01/22 01/02/22 01/03/22 01/04/22 11:59 11:59 11:59 11:59 Intake Total 1760 / 1760 3700 / 3700 1494 / 1494 Balance 1760 / 1760 3700 / 3700 1494 / 1494 - Physical Exam Oriented: Normal Eyes: Normal Ear: Normal Nose: Normal Throat: Normal Respiratory: Normal Cardiovascular: Normal : Normal Auscultation: Bowel Sounds: Normal Palpation: Normal Tenderness: Normal Skin: Normal Musculoskeletal: Right, Left, Hip, Leg, Back:Lumbar, Tender Psychiatric: Normal Mood Description: Calm Affect: Normal Speech Pattern: Clear, Appropriate - Laboratory and Diagnostics Result Diagrams: 01/03/22 05:26 01/03/22 05:26 Labs: Laboratory WBC 5.8 X10^3/uL (3.6-10.0) 01/03/22 05:26 RBC 3.37 X10^6/uL (3.5-5.4) L 01/03/22 05:26 Hgb 10.8 g/dL (12.0-16.0) L 01/03/22 05:26 Hct 31.3 % (36.0-47.0) L 01/03/22 05:26 MCV 92.9 fL (80.0-100.0) 01/03/22 05:26 MCH 32.2 pg (27.0-34.0) 01/03/22 05: MCHC 34.6 g/dL (33.0-35.0) 01/03/22 05:26 RDW 13.0 % (11.6-16.5) 01/03/22 05:26 Plt Count 189 X10^3/uL (150.0-450.0) 01/03/22 05:26 MPV 7.5 fL (7.4-11.0) 01/03/22 05:26 Neut % (Auto) 50.1 % (42.0-75.0) 01/03/22 05:26 Lymph % (Auto) 42.4 % (21.0-51.0) 01/03/22 05:26 [place] % (Auto) 5.6 % (0.0-13.0) 01/03/22 05:26 Eos % (Auto) 1.4 % (0.9-2.9) 01/03/22 05:26 Baso % (Auto) 0.5 % (0.2-1.0) 01/03/22 05:26 Neut # (Auto) 2.9 x10^3/uL (2.2-4.8) 01/03/22 05:26 Lymph # (Auto) 2.5 X10^3/uL (1.3-2.9) 01/03/22 05:26 [place] # (Auto) 0.3 x10^3/uL (0.3-0.8) 01/03/22 05:26 Eos # (Auto) 0.1 x10^3/uL (0.0-0.2) 01/03/22 05:26 Baso # (Auto) 0.0 X10^3/uL (0.0-0.1) 01/03/22 05:26 Absolute Nucleated RBC 0.1 /100WBC 01/03/22 05:26 PT 13.9 SECONDS (11.8-14.3) 01/02/22 05:39 INR Target Range - 01/02/22 05:39 INR 1.10 (0.8-1.3) 01/02/22 05:39 APTT 26.1 SECONDS (22.9-36.5) 01/02/22 05:39 PTT Comment - 01/02/22 05:39 Fibrinogen 287 mg/dL (239-489) 01/01/22 13:00 Sodium 139 mmol/L (136-145) 01/03/22 05:26 Corrected Sodium 140 mmol/L (136-145) 01/03/22 05:26 Potassium 4.6 mmol/L (3.5-5.1) 01/03/22 05:26 Chloride 107 mmol/L (98-107) 01/03/22 05:26 Carbon Dioxide 25.9 mmol/L (21-32) 01/03/22 05:26 BUN 24 mg/dL (7-18) H 01/03/22 05:26 Creatinine 1.02 mg/dL (0.55-1.02) 01/03/22 05:26 Est GFR (MDRD) Af Amer > 60 (>60) 01/03/22 05:26 Est GFR (MDRD) Non-Af 59 (>60) 01/03/22 05:26 Glucose 133 mg/dL (65-99) H 01/03/22 05:26 POC Glucose (mg/dL) 178 mg/dL (65-99) H 01/03/22 16:32 Calcium 8.3 mg/dL (8.5-10.1) L 01/03/22 05:26 Corrected Calcium TNP 01/03/22 05:26 Magnesium 1.3 mg/dL (1.7-2.9) L 01/03/22 05:26 Total Bilirubin 0.20 mg/dL (0.2-1.0) 01/03/22 05:26 AST 102 Units/L (15-37) H 01/03/22 05:26 ALT 37 Units/L (12-78) 01/03/22 05:26 Alkaline Phosphatase 72 Units/L (46-116) 01/03/22 05:26 Creatine Kinase 2664 Units/L (26-192) H 01/03/22 05:26 CK-MB (CK-2) 41.3 ng/mL (0-4.0) H 01/02/22 01:16 CK/CKMB % Calc 0.6 % (<4) 01/02/22 01:16 Troponin I High Sens 14.6 ng/L (4.0-60.0) 01/02/22 01:16 Total Protein 6.8 g/dL (6.4-8.2) 01/03/22 05:26 Albumin 3.4 g/dL (3.4-5.0) 01/03/22 05:26 Globulin 3.4 g/dL (2.5-4.5) 01/03/22 05:26 Albumin/Globulin Ratio 1.0 Ratio (1.1-2.1) L 01/03/22 05:26 Triglycerides 419 mg/dL (0-150) H 01/01/22 13:00 Cholesterol 233 mg/dL (0-200) H 01/01/22 13:00 LDL Cholesterol, Calc 107 mg/dL (0-100) H 01/01/22 13:00 HDL Cholesterol 42 mg/dL (40-60) 01/01/22 13:00 Cholesterol/HDL Ratio 5.5 (0.0-5.0) H 01/01/22 13:00 Specimen Type Clean catch urine 01/01/22 17:53 Urine Color Yellow (YELLOW) 01/01/22 17:53 Urine Appearance Slightly hazy (CLEAR) 01/01/22 17:53 Urine pH 5.0 (5.0 - 8.0) 01/01/22 17:53 Ur Specific [place] 1.025 (1.000-1.030) 01/01/22 17:53 Urine Protein 1+ (NEGATIVE) 01/01/22 17:53 Urine Glucose (UA) Negative (NEGATIVE) 01/01/22 17:53 Urine Ketones Negative (NEGATIVE) 01/01/22 17:53 Urine Blood 2+ (NEGATIVE) 01/01/22 17:53 Urine Nitrite Negative (NEGATIVE) 01/01/22 17:53 Urine Bilirubin Negative (NEGATIVE) 01/01/22 17:53 Urine Urobilinogen Normal (NORMAL) 01/01/22 17:53 Ur Leukocyte Esterase Negative (NEGATIVE) 01/01/22 17:53 Urine RBC 3-5 /HPF (0-3) A 01/01/22 17:53 Urine WBC 0-2 /HPF (0-5) 01/01/22 17:53 Ur Squamous Epith Cells Many /HPF (NEGATIVE) 01/01/22 17:53 Urine Bacteria 1+ /HPF (NEGATIVE) 01/01/22 17:53 Hyaline Casts Few /LPF (NEGATIVE) 01/01/22 17:53 Ur Culture Indicated? No/not indicated 01/01/22 17:53 SARS-CoV-2 (PCR) Negative (NEGATIVE) 01/01/22 15:13 - Plan (1) Rhabdomyolysis Status: Acute Qualifiers: Rhabdomyolysis type: non-traumatic Qualified Code(s): M62.82 - Rhabd omyolysis Plan: NORMAL SALINE AT 125ML/HR AND HER HOME MEDICATIONS WERE RESUMED, WITH THE EXCEPTION OF THE CRESTOR. MONITOR CBC, CMP, CREATINE KINASE (2) TIA (transient ischemic attack) Status: Acute Plan: NEURO CHECKS (3) Bilateral hip pain Status: Chronic Plan: CONTINUE HOME MEDS (4) Essential hypertension Status: Chronic (5) Gastroesophageal reflux disease Status: Chronic
[2022-01-03] MEDS ORDERED: NS 1,000 ML IV 500 ML IV ONE (22:42)
[2022-01-03 23:39] LABS: CREATINE KINASE MB 3.8 ng/mL (0-4.0)
[2022-01-03 23:45] LABS: CKMB % 0.2 % (<4)
[2022-01-04] MEDS: TORADOL 15 MG VIAL IVP SCH ×3 (01:03→21:03)
[2022-01-04 04:49] LABS: BASOPHILS % (AUTO) 0.6 % (0.2-1.0); EOSINOPHILS # (AUTO) 0.1 x10^3/uL (0.0-0.2); EOSINOPHILS % (AUTO) 0.7 % (0.9-2.9); HEMATOCRIT 30.3 % (36.0-47.0); HEMOGLOBIN 10.5 g/dL (12.0-16.0); LYMPHOCYTES # (AUTO) 2.6 X10^3/uL (1.3-2.9); LYMPHOCYTES % (AUTO) 31.3 % (21.0-51.0); MEAN CORPUSCULAR HEMOGLOBIN 32.5 pg (27.0-34.0); MEAN CORPUSCULAR HGB CONC 34.8 g/dL (33.0-35.0); MEAN CORPUSCULAR VOLUME 93.2 fL (80.0-100.0); MONOCYTES # (AUTO) 0.5 x10^3/uL (0.3-0.8); MONOCYTES % (AUTO) 5.6 % (0.0-13.0); NEUTROPHILS # (AUTO) 5.1 x10^3/uL (2.2-4.8); NEUTROPHILS % (AUTO) 61.8 % (42.0-75.0); RED BLOOD COUNT 3.24 X10^6/uL (3.5-5.4); RED CELL DISTRIBUTION WIDTH 13.2 % (11.6-16.5); WHITE BLOOD COUNT 8.2 X10^3/uL (3.6-10.0)
[2022-01-04 05:09] LABS: ALANINE AMINOTRANSFERASE 35 Units/L (12-78); ALBUMIN 3.4 g/dL (3.4-5.0); ALKALINE PHOSPHATASE 75 Units/L (46-116); ASPARTATE AMINO TRANSFERASE 90 Units/L (15-37); BLOOD UREA NITROGEN 28 mg/dL (7-18); CALCIUM 8.6 mg/dL (8.5-10.1); CHLORIDE 107 mmol/L (98-107); COR NA(FOR HYPERGLY) 138 mmol/L (136-145); CREATININE 1.45 mg/dL (0.55-1.02); MAGNESIUM 2.4 mg/dL (1.7-2.9); SODIUM 137 mmol/L (136-145); TOTAL PROTEIN 6.6 g/dL (6.4-8.2); eGFR NON BLACK RACES 40 (>60)
[2022-01-04 05:13] LABS: CREATINE KINASE 1857 Units/L (26-192)
[2022-01-04] MEDS: NS 1,000 ML IV 1,000 ML IV SCH ×4 (06:18→23:07)
[2022-01-04] MEDS ORDERED: TORADOL 15 MG VIAL IVP PRN (08:29)
[2022-01-04] MEDS ORDERED: ZANAFLEX PO PRN (08:31)
[2022-01-04] MEDS ORDERED: GLUCOPHAGE ONE ×2 (09:31→20:28)
[2022-01-04] MEDS: GLUCOPHAGE PO SCH ×2 (10:00→20:42)
[2022-01-04] MEDS: ASPIRIN PO SCH (10:00)
[2022-01-04] MEDS: PriLOSEC PO SCH ×2 (10:00→20:42)
[2022-01-04] MEDS: VASOTEC TAB 20 MG PO SCH ×2 (10:00→20:42)
[2022-01-04] MEDS: CALAN SR 240 MG PO SCH (10:03)
[2022-01-04] MEDS: MUCINEX DM PO SCH ×2 (10:41→20:42)
[2022-01-04] MEDS ORDERED: ROBITUSSIN DM PO PRN (11:49)
[2022-01-04] MEDS: PHENERGAN TAB 25 MG PO PRN ×2 (12:25→18:55)
--- NOTE | 2022-01-04 13:20 | RAD ---
HISTORYCOUGHSTUDYCHEST x-ray, 1 VIEWCOMPARISONNoneFINDINGSProbable CHF and pulmonary edema. Perihilar densities could possibly be due to atypical pneumonia, though. No pneumothorax or pleural effusion is seen.IMPRESSIONProbable CHF and pulmonary edema. Less likely perihilar densities are due to atypical pneumonia.Electronically signed by: Stuart Almeida (January 04, 2022 13:19:35)
--- NOTE | 2022-01-04 13:44 | PCM.PROG ---
Progress Note - Progress Note for Day of Date of Exam: 01/03/22 - Subjective Subjective: WAS ADMITTED INPATIENT STATUS FOR TREATMENT OF RHABDOMYOLYSIS, TIA, INTRACTABLE HIP PAIN. SHE HAS A PMH OF HTN, GERD, PR, HYPERLIPIDEMIA. SHE HAD A TELENEUROLOGY CONSULT ON ADMISSION AND WAS CLEARED BY NEUROLOGIST. TODAY, SHE IS ALERT AND ORIENTED, LYING IN BED ON MORNING ROUNDS. SHE CONTINUE WITH COMPLAINTS OF BILATERAL HIP PAIN AND LEG WEAKNESS. SHE ALSO REPORTS LOW BACK PAIN AT TIMES. SYMPTOMS ARE SLIGHTLY BETTER TODAY. ON EXAMINATION, HEART IS REGULAR IN RATE AND RHYTHM. BILATERAL LUNGS ARE CLEAR TO AUSCULTATION. ABDOMEN IS ROUND, SOFT, AND NON-TENDER WITH NORMAL BOWEL SOUNDS NOTED IN ALL QUADRANTS. TENDERNESS NOTED TO BILATERAL HIPS. PAIN IS WORSE WITH MOVEMENT AND BEARING WEIGHT. SHE DOES HAVE A HISTORY OF OSTEOARTHRITIS OF HIPS. TENDERNESS NOTED TO LUMBAR-SACRAL AREA. GOOD MOVEMENT AND STRENGTH NOTED TO LOWER EXTREMITIES. NO UPPER OR LOWER EXTREMITY EDEMA NOTED. HER VITALS THIS MORNING ARE: 97.7-96-20-94%-121/62. LABS WERE OBTAINED. WBC 5.8, RBC 3.37, HGB 10.8, HCT 31.3, SODIUM 138, POTASSIUM 4.5, CHLORIDE 104, BUN 36, CREATININE 1.26, GLUCOSE 163, CALCIUM 8.9, MAGNESIUM 1.3, AST 166, ALT 36, ALK PHOS 83, TOTAL PROTEIN 7.7, ALBUMIN 4.0 SHE IS CURRENTLY RECEIVING NORMAL SALINE AT 125ML/HR AND HER HOME MEDICATIONS WERE RESUMED, WITH THE EXCEPTION OF THE C RESTOR, THIS MAY BE THE CAUSE OF THE RHABDO. TODAY, WE WILL ADD TORADOL 15MG IV Q8H. OTHERWISE, WE WILL CONTINUE WITH CURRENT PLAN OF CARE TODAY. WE PLAN TO FOLLOW-UP WITH AM LABS AND CONTINUE TO MONITOR. TIME SPENT ON CLINICAL ASSESSMENT, REVIEWING LABS AND IMAGING, DECISION MAKING, AND DOCUMENTATION GREATER THAN 45 MINUTES. - Past Medical Family Social History Past Med/Fam/Surg Hx: No changes since H&P Allergies: Allergies No Known Drug Allergies Allergy (Verified 03/29/21 14:27) - Review of Systems ROS: No change since H&P - Vital Signs and I&O's Vital Signs: Temperature 97.8 F Pulse Rate [Right Brachial] 42 Pulse Rate 81 Respiratory Rate 15 Blood Pressure [Right Arm] 68/35 Blood Pressure 145/92 O2 Sat by Pulse Oximetry 98 Intake and Output: Intake & Output 01/02/22 01/03/22 01/04/22 01/05/22 11:59 11:59 11:59 11:59 Intake Total 1760 / 1760 3700 / 3700 4063 / 4063 Balance 1760 / 1760 3700 / 3700 4063 / 4063 - Physical Exam Oriented: Normal Eyes: Normal Ear: Normal Nose: Normal Throat: Normal Respiratory: Normal Cardiovascular: Normal : Normal Auscultation: Bowel Sounds: Normal Tenderness: Normal Skin: Normal Musculoskeletal: Right, Left, Hip, Leg, Back:Lumbar, Tender Psychiatric: Normal Mood Description: Calm Affect: Normal Speech Pattern: Clear, Appropriate - Laboratory and Diagnostics Result Diagrams: 01/04/22 04:12 01/04/22 04:12 Labs: Laboratory WBC 8.2 X10^3/uL (3.6-10.0) 01/04/22 04:12 RBC 3.24 X10^6/uL (3.5-5.4) L 01/04/22 04:12 Hgb 10.5 g/dL (12.0-16.0) L 01/04/22 04:12 Hct 30.3 % (36.0-47.0) L 01/04/22 04:12 MCV 93.2 fL (80.0-100.0) 01/04/22 04:12 MCH 32.5 pg (27.0-34.0) 01/04/22 04:12 MCHC 34.8 g/dL (33.0-35.0) 01/04/22 04:12 RDW 13.2 % (11.6-16.5) 01/04/22 04:12 Plt Count 170 X10^3/uL (150.0-450.0) 01/04/22 04:12 MPV 8.0 fL (7.4-11.0) 01/04/22 04:12 Neut % (Auto) 61.8 % (42.0-75.0) 01/04/22 04:12 Lymph % (Auto) 31.3 % (21.0-51.0) 01/04/22 04:12 [place] % (Auto) 5.6 % (0.0-13.0) 01/04/22 04:12 Eos % (Auto) 0.7 % (0.9-2.9) L 01/04/22 04:12 Baso % (Auto) 0.6 % (0.2-1.0) 01/04/22 04:12 Neut # (Auto) 5.1 x10^3/uL (2.2-4.8) H 01/04/22 04:12 Lymph # (Auto) 2.6 X10^3/uL (1.3-2.9) 01/04/22 04:12 [place] # (Auto) 0.5 x10^3/uL (0.3-0.8) 01/04/22 04:12 Eos # (Auto) 0.1 x10^3/uL (0.0-0.2) 01/04/22 04:12 Baso # (Auto) 0.0 X10^3/uL (0.0-0.1) 01/04/22 04:12 Absolute Nucleated RBC 0.0 /100WBC 01/04/22 04:12 PT 13.9 SECONDS (11.8-14.3) 01/02/22 05:39 INR Target Range - 01/02/22 05:39 INR 1.10 (0.8-1.3) 01/02/22 05:39 APTT 26.1 SECONDS (22.9-36.5) 01/02/22 05:39 PTT Comment - 01/02/22 05:39 Fibrinogen 287 mg/dL (239-489) 01/01/22 13:00 Sodium 137 mmol/L (136-145) 01/04/22 04:12 Corrected Sodium 138 mmol/L (136-145) 01/04/22 04:12 Potassium 5.7 mmol/L (3.5-5.1) H 01/04/22 04:12 Chloride 107 mmol/L (98-107) 01/04/22 04:12 Carbon Dioxide 26.0 mmol/L (21-32) 01/04/22 04:12 BUN 28 mg/dL (7-18) H 01/04/22 04:12 Creatinine 1.45 mg/dL (0.55-1.02) H 01/04/22 04:12 Est GFR (MDRD) Af Amer 48 (>60) L 01/04/22 04:12 Est GFR (MDRD) Non-Af 40 (>60) L 01/04/22 04:12 Glucose 123 mg/dL (65-99) H 01/04/22 04:12 POC Glucose (mg/dL) 129 mg/dL (65-99) H 01/04/22 11:41 Calcium 8.6 mg/dL (8.5-10.1) 01/04/22 04:12 Corrected Calcium TNP 01/04/22 04:12 Magnesium 2.4 mg/dL (1.7-2.9) 01/04/22 04:12 Total Bilirubin 0.20 mg/dL (0.2-1.0) 01/04/22 04:12 AST 90 Units/L (15-37) H 01/04/22 04:12 ALT 35 Units/L (12-78) 01/04/22 04:12 Alkaline Phosphatase 75 Units/L (46-116) 01/04/22 04:12 Creatine Kinase 1857 Units/L (26-192) H 01/04/22 04:12 CK-MB (CK-2) 3.8 ng/mL (0-4.0) 01/03/22 23:03 CK/CKMB % Calc 0.2 % (<4) 01/03/22 23:03 Troponin I High Sens 11.5 ng/L (4.0-60.0) 01/03/22 23:03 Total Protein 6.6 g/dL (6.4-8.2) 01/04/22 04:12 Albumin 3.4 g/dL (3.4-5.0) 01/04/22 04:12 Globulin 3.2 g/dL (2.5-4.5) 01/04/22 04:12 Albumin/Globulin Ratio 1.1 Ratio (1.1-2.1) 01/04/22 04:12 Triglycerides 419 mg/dL (0-150) H 01/01/22 13:00 Cholesterol 233 mg/dL (0-200) H 01/01/22 13:00 LDL Cholesterol, Calc 107 mg/dL (0-100) H 01/01/22 13:00 HDL Cholesterol 42 mg/dL (40-60) 01/01/22 13:00 Cholesterol/HDL Ratio 5.5 (0.0-5.0) H 01/01/22 13:00 Specimen Type Clean catch urine 01/01/22 17:53 Urine Color Yellow (YELLOW) 01/01/22 17:53 Urine Appearance Slightly hazy (CLEAR) 01/01/22 17:53 Urine pH 5.0 (5.0 - 8.0) 01/01/22 17:53 Ur Specific [place] 1.025 (1.000-1.030) 01/01/22 17:53 Urine Protein 1+ (NEGATIVE) 01/01/22 17:53 Urine Glucose (UA) Negative (NEGATIVE) 01/01/22 17:53 Urine Ketones Negative (NEGATIVE) 01/01/22 17:53 Urine Blood 2+ (NEGATIVE) 01/01/22 17:53 Urine Nitrite Negative (NEGATIVE) 01/01/22 17:53 Urine Bilirubin Negative (NEGATIVE) 01/01/22 17:53 Urine Urobilinogen Normal (NORMAL) 01/01/22 17:53 Ur Leukocyte Esterase Negative (NEGATIVE) 01/01/22 17:53 Urine RBC 3-5 /HPF (0-3) A 01/01/22 17:53 Urine WBC 0-2 /HPF (0-5) 01/01/22 17:53 Ur Squamous Epith Cells Many /HPF (NEGATIVE) 01/01/22 17:53 Urine Bacteria 1+ /HPF (NEGATIVE) 01/01/22 17:53 Hyaline Casts Few /LPF (NEGATIVE) 01/01/22 17:53 Ur Culture Indicated? No/not indicated 01/01/22 17:53 SARS-CoV-2 (PCR) Negative (NEGATIVE) 01/01/22 15:13 - Plan (1) Rhabdomyolysis Status: Acute Qualifiers: Rhabdomyolysis type: non-traumatic Qualified Code(s): M62.82 - Rhabdomyolysis Plan: NORMAL SALINE AT 125ML/HR AND HER HOME MEDICATIONS WERE RESUMED, WITH THE EXCEPTION OF THE CRESTOR. MONITOR CBC, CMP, CREATINE KINASE (2) TIA (transient ischemic attack) Status: Acute Plan: NEURO CHECKS (3) Bilateral hip pain Status: Chronic Plan: CONTINUE HOME MEDS (4) Essential hypertension Status: Chronic (5) Gastroesophageal reflux disease Status: Chronic
[2022-01-04] MEDS: NEURONTIN CAP 300 MG PO PRN (20:42)
[2022-01-05 05:33] LABS: BASOPHILS # (AUTO) 0.1 X10^3/uL (0.0-0.1); BASOPHILS % (AUTO) 0.8 % (0.2-1.0); EOSINOPHILS % (AUTO) 0.5 % (0.9-2.9); HEMATOCRIT 36.9 % (36.0-47.0); HEMOGLOBIN 12.6 g/dL (12.0-16.0); LYMPHOCYTES # (AUTO) 2.6 X10^3/uL (1.3-2.9); LYMPHOCYTES % (AUTO) 26.7 % (21.0-51.0); MEAN CORPUSCULAR HEMOGLOBIN 31.6 pg (27.0-34.0); MEAN CORPUSCULAR HGB CONC 34.1 g/dL (33.0-35.0); MEAN CORPUSCULAR VOLUME 92.7 fL (80.0-100.0); MEAN PLATELET VOLUME 7.5 fL (7.4-11.0); MONOCYTES # (AUTO) 0.3 x10^3/uL (0.3-0.8); MONOCYTES % (AUTO) 3.5 % (0.0-13.0); NEUTROPHILS # (AUTO) 6.5 x10^3/uL (2.2-4.8); NEUTROPHILS % (AUTO) 68.5 % (42.0-75.0); RED BLOOD COUNT 3.99 X10^6/uL (3.5-5.4); RED CELL DISTRIBUTION WIDTH 12.9 % (11.6-16.5); WHITE BLOOD COUNT 9.5 X10^3/uL (3.6-10.0)
[2022-01-05] MEDS: TORADOL 15 MG VIAL IVP SCH (05:43)
[2022-01-05] MEDS: PHENERGAN TAB 25 MG PO PRN (05:48)
[2022-01-05 05:59] LABS: ALANINE AMINOTRANSFERASE 35 Units/L (12-78); ALBUMIN 3.9 g/dL (3.4-5.0); ALKALINE PHOSPHATASE 85 Units/L (46-116); ASPARTATE AMINO TRANSFERASE 65 Units/L (15-37); BLOOD UREA NITROGEN 24 mg/dL (7-18); CALCIUM 8.7 mg/dL (8.5-10.1); CARBON DIOXIDE 25.5 mmol/L (21-32); CHLORIDE 107 mmol/L (98-107); COR NA(FOR HYPERGLY) 143 mmol/L (136-145); MAGNESIUM 1.8 mg/dL (1.7-2.9); SODIUM 142 mmol/L (136-145); TOTAL PROTEIN 7.9 g/dL (6.4-8.2); eGFR NON BLACK RACES 54 (>60)
[2022-01-05 06:06] LABS: CREATINE KINASE 1191 Units/L (26-192)
[2022-01-05] MEDS ORDERED: GLUCOPHAGE ONE (07:12)
[2022-01-05 08:05] VITALS: BP 187/78
[2022-01-05] MEDS: MUCINEX DM PO SCH (08:32)
[2022-01-05] MEDS: ASPIRIN PO SCH (08:33)
[2022-01-05] MEDS: GLUCOPHAGE PO SCH (08:33)
[2022-01-05] MEDS: PriLOSEC PO SCH (08:33)
[2022-01-05] MEDS: VASOTEC TAB 20 MG PO SCH (08:34)
[2022-01-05] MEDS: CALAN SR 240 MG PO SCH (09:46)
== END 2022-01-05 11:15 | disposition home or self-care (01) | DRG 69 ==
LOC: MED/SURG 12:31 → ER 12:31 → OBSVTOIN 15:21 → MED/SURG 16:00 → ICU 01-03 22:31 → MED/SURG 01-04 14:46
PROVIDERS: ADMIT Internal Medicine; ATTEND Internal Medicine
DX: M25.551 Pain in right hip; M54.59 Other low back pain; Z20.822 Contact with and (suspected) exposure to COVID-19; Z91.81 History of falling; M62.82 Rhabdomyolysis; I10 Essential (primary) hypertension; E78.2 Mixed hyperlipidemia; R53.1 Weakness; K21.9 Gastro-esophageal reflux disease without esophagitis; R26.89 Other abnormalities of gait and mobility; E11.65 Type 2 diabetes mellitus with hyperglycemia; G45.9 Transient cerebral ischemic attack, unspecified; M25.552 Pain in left hip

== ENCOUNTER 2022-09-09 14:45 | Observation (INO) ==
[2022-09-09] MEDS ORDERED: NS 500 ML IV 500 ML IV ONE ×2 (15:03→15:14)
--- NOTE | 2022-09-09 15:03 | DR.GENAD ---
HPI Time Seen Time Seen by Provider: 09/09/22 15:01 Complaint/Symptoms Chief Complaint Doctors Comments: 56 y/o female presents for evaluation. Started with slurred speech several hours ago. Currently improving. Last known well around 9 am. May have started around 11 am (> 3 hours ago). + headache, dull. Denies visual changes, weakness of the exts. + bilateral hand numbness. + pain radiating down R side. Denies recent illness. Has had TIA episodes in the past. Taking ASA. Nurses notes reviewed Nurses Notes Review: Yes Source History Provided: Patient Mode of Arrival Mode of Arrival: Ambulatory PMH PM Past Medical History: Diabetes, Dyslipidemia, GERD, Hypertension and OR Past Surgical History: Yes Surgical History: Hysterectomy Family History Family Medical History: Cancer Social History Do you use any recreational Drugs:: No ROS Review of Systems Constitutional: No Symptoms Reported Eyes: No Symptoms Reported ENTM: No Symptoms Reported Respiratoy: No Symptoms Reported Cardiovascular: No Symptoms Reported Gastrointestinal/Abdominal: No Symptoms Reported Genitourinary: No Symptoms Reported Neurological: See HPI Musculoskeletal: No Symptoms Reported Hematologic/Lymphatic: No Symptoms Reported Psychiatric: No Symptoms Reported All Other Systems: Reviewed and Negative PE Vital Signs Vitals: Temperature 98.4 F Pulse Rate 63 Respiratory Rate 12 Blood Pressure [Right Arm] 131/60 Blood Pressure [Left Arm] 167/72 Blood Pressure 142/67 O2 Sat by Pulse Oximetry 95 General General Appearance: Alert, In No Apparent Distress and Other (Speech understandable. ) Head Head Exam: Normal Inspection Eyes Eye exam: PERRL and EOMI ENT ENT Exam: Normal Exam, Normal Oropharynx and Mucous Membranes Moist Neck Neck Exam: Normal Inspection and Full ROM; negative Tenderness Respiratory Respiratory Exam: Normal Lung Sounds Bilat; negative Accessory Muscle Use or Respiratory Distress Cardiovascular Cardiovascular Exam: Regular Rate, Normal Rhythm and Normal Heart Sounds Abdominal Exam Abdominal Exam: Normal Inspection, Normal Bowel Sounds and Soft; negative Tenderness Extremities Extremities Exam: Normal Inspection and Full ROM; negative Tenderness or Edema Neurologic Neurological Exam: Alert, Oriented X3, CN II-XII Intact and Other (+ cerebellar intact. Speech slightly off, but is easily understandable. ) Skin Skin Exam: Warm and Dry COURSE Treatment Treatment: 56 y/o female wqith difficulty with speech x several hours, currently improving. No focal deficits at present. Speech understandable, but not baseline. W/u initiated. Brain CT without obvious acute abnormalities. Labs overall acceptable. 1750 - discussed with Dr Mcgarry, will admit for further observation, attempt to obtain a brain MRI in the AM, as well as carotid dopplers. ROR Labs Reviewed Result Diagrams: 09/09/22 15:06 09/09/22 15:06 Laboratory: WBC 8.6 X10^3/uL (3.6-10.0) 09/09/22 15:06 RBC 3.62 X10^6/uL (3.5-5.4) 09/09/22 15:06 Hgb 11.3 g/dL (12.0-16.0) L 09/09/22 15:06 Hct 33.4 % (36.0-47.0) L 09/09/22 15:06 MCV 92.2 fL (80.0-100.0) 09/09/22 15:06 MCH 31.2 pg (27.0-34.0) 09/09/22 15:06 MCHC 33.8 g/dL (33.0-35.0) 09/09/22 15:06 RDW 12.8 % (11.6-16.5) 09/09/22 15:06 Plt Count 217 X10^3/uL (150.0-450.0) 09/09/22 15:06 MPV 6.8 fL (7.4-11.0) L 09/09/22 15:06 Neut % (Auto) 52.8 % (42.0-75.0) 09/09/22 15:06 Lymph % (Auto) 38.2 % (21.0-51.0) 09/09/22 15:06 [place] % (Auto) 6.3 % (0.0-13.0) 09/09/22 15:06 Eos % (Auto) 1.9 % (0.9-2.9) 09/09/22 15:06 Baso % (Auto) 0.8 % (0.2-1.0) 09/09/22 15:06 Neut # (Auto) 4.5 x10^3/uL (2.2-4.8) 09/09/22 15:06 Lymph # (Auto) 3.3 X10^3/uL (1.3-2.9) H 09/09/22 15:06 [place] # (Auto) 0.5 x10^3/uL (0.3-0.8) 09/09/22 15:06 Eos # (Auto) 0.2 x10^3/uL (0.0-0.2) 09/09/22 15:06 Baso # (Auto) 0.1 X10^3/uL (0.0-0.1) 09/09/22 15:06 Absolute Nucleated RBC 0.0 /100WBC 09/09/22 15:06 Sodium 139 mmol/L (136-145) 09/09/22 15:06 Corrected Sodium TNP 09/09/22 15:06 Potassium 4.1 mmol/L (3.5-5.1) 09/09/22 15:06 Chloride 102 mmol/L (98-107) 09/09/22 15:06 Carbon Dioxide 33.2 mmol/L (21-32) H 09/09/22 15:06 BUN 21 mg/dL (7-18) H 09/09/22 15:06 Creatinine 1.33 mg/dL (0.55-1.02) H 09/09/22 15:06 Est GFR (MDRD) Af Amer 53 (>60) L 09/09/22 15:06 Est GFR (MDRD) Non-Af 44 (>60) L 09/09/22 15:06 Glucose 103 mg/dL (65-99) H 09/09/22 15:06 Calcium 9.1 mg/dL (8.5-10.1) 09/09/22 15:06 Corrected Calcium TNP 09/09/22 15:06 Total Bilirubin 0.30 mg/dL (0.2-1.0) 09/09/22 15:06 AST 27 Units/L (15-37) 09/09/22 15:06 ALT 23 Units/L (12-78) 09/09/22 15:06 Alkaline Phosphatase 63 Units/L (46-116) 09/09/22 15:06 Total Protein 7.6 g/dL (6.4-8.2) 09/09/22 15:06 Albumin 3.9 g/dL (3.4-5.0) 09/09/22 15:06 Globulin 3.7 g/dL (2.5-4.5) 09/09/22 15:06 Albumin/Globulin Ratio 1.1 Ratio (1.1-2.1) 09/09/22 15:06 Lipase 144 Units/L (73-393) 09/09/22 15:06 Specimen Type Clean catch urine 09/09/22 16:58 Urine Color Yellow (YELLOW) 09/09/22 16:58 Urine Appearance Clear (CLEAR) 09/09/22 16:58 Urine pH 5.0 (5.0 - 8.0) 09/09/22 16:58 Ur Specific [place] 1.025 (1.000-1.030) 09/09/22 16:58 Urine Protein 2+ (NEGATIVE) 09/09/22 16:58 Urine Glucose (UA) Negative (NEGATIVE) 09/09/22 16:58 Urine Ketones 1+ (NEGATIVE) 09/09/22 16:58 Urine Blood 1+ (NEGATIVE) 09/09/22 16:58 Urine Nitrite Negative (NEGATIVE) 09/09/22 16:58 Urine Bilirubin Negative (NEGATIVE) 09/09/22 16:58 Urine Urobilinogen Normal (NORMAL) 09/09/22 16:58 Ur Leukocyte Esterase 1+ (NEGATIVE) 09/09/22 16:58 Urine RBC 3-5 /HPF (0-3) A 09/09/22 16:58 Urine WBC 3-5 /HPF (0-5) 09/09/22 16:58 Ur Squamous Epith Cells Many /HPF (NEGATIVE) 09/09/22 16:58 Urine Bacteria Negative /HPF (NEGATIVE) 09/09/22 16:58 Ur Culture Indicated? No/not indicated 09/09/22 16:58 EKG Rate: 64 [place]: Normal Rhythm: NSR Block: 1 ST: Normal Opioid Opioid Risk Tool Age (Hans box if 16-45): No History of Preadolescent Sexual Abuse: No Total: 0 Total Score Risk Category: Low Risk Copyright: Jose GR predicting aberrant behaviors Discharge Plan Diagnosis Discharge Problem: Brain TIA Discharge Plan Patient Disposition: 09 ADMITTED INPATIENT Condition: Stable Prescriptions: No Action enalapril maleate 20 MG tablet 20 mg PO BID alprazolam [Xanax] 1 MG tablet 0.5 mg PO DAILY PRN (Reason: Anxiety) hydrocodone-acetaminophen 10 MG/325 MG tablet 1 tab PO Q8H PRN (Reason: Pain) clonidine HCl 0.1 mg Tablet 0.1 mg PO DAILY PRN pantoprazole [Protonix] 40 mg Tablet,Delayed Release (Dr/Ec) 40 mg PO DAILY promethazine 25 mg Tablet 25 mg PO Q4-6H PRN gabapentin 300 mg Capsule 300 mg PO TID PRN omeprazole 20 mg Capsule,Delayed Release(Dr/Ec) 20 mg PO BID verapamil 240 mg Tablet Extended Release 240 mg PO DAILY tizanidine [Zanaflex] 4 mg Capsule 4 mg PO TID PRN acetaminophen-codeine 1 TAB tablet 1 tab PO Q6HR PRN metformin 500 mg tablet 500 mg PO BID Health Concerns: Post Hospitalization: new medications and changes needed to prevent readmission or further decline. Pt educated and given instructions on all concerns. Plan of Treatment: Continue with present treatment and follow up plan. Pt is to keep follow up appointment as instructed and take medications as ordered. Orders to Discharge Patient Discharge Orders: Transfer (Routine); Ordered 09/09/22 Ordered By: Papa Colon Follow ups/Referrals Follow ups/Referrals: PRISCILLA MIRELES [Primary Care Provider] - 3 days
--- NOTE | 2022-09-09 15:12 | EKG ---
Test Reason : slurred speech Blood Pressure : */* mmHG Vent. Rate : 64 BPM Atrial Rate : 64 BPM P-R Int : 218 ms QRS Dur : 92 ms QT Int : 464 ms P-R-T Axes : 41 -8 0 degrees QTc Int : 478 ms Sinus rhythm with 1st degree AV block Left ventricular hypertrophy with repolarization abnormality ( R in aVL , Romhilt-Sanchez ) Abnormal ECG No previous ECGs available Confirmed by Brandan Rodriguez ([id number]) on 09/10/2022 8:56:34 AM Referred By: Confirmed By: Brandan Rodriguez
[2022-09-09 15:17] LABS: BASOPHILS # (AUTO) 0.1 X10^3/uL (0.0-0.1); BASOPHILS % (AUTO) 0.8 % (0.2-1.0); EOSINOPHILS # (AUTO) 0.2 x10^3/uL (0.0-0.2); EOSINOPHILS % (AUTO) 1.9 % (0.9-2.9); HEMATOCRIT 33.4 % (36.0-47.0); HEMOGLOBIN 11.3 g/dL (12.0-16.0); LYMPHOCYTES # (AUTO) 3.3 X10^3/uL (1.3-2.9); LYMPHOCYTES % (AUTO) 38.2 % (21.0-51.0); MEAN CORPUSCULAR HEMOGLOBIN 31.2 pg (27.0-34.0); MEAN CORPUSCULAR HGB CONC 33.8 g/dL (33.0-35.0); MEAN CORPUSCULAR VOLUME 92.2 fL (80.0-100.0); MEAN PLATELET VOLUME 6.8 fL (7.4-11.0); MONOCYTES # (AUTO) 0.5 x10^3/uL (0.3-0.8); MONOCYTES % (AUTO) 6.3 % (0.0-13.0); NEUTROPHILS # (AUTO) 4.5 x10^3/uL (2.2-4.8); NEUTROPHILS % (AUTO) 52.8 % (42.0-75.0); RED BLOOD COUNT 3.62 X10^6/uL (3.5-5.4); RED CELL DISTRIBUTION WIDTH 12.8 % (11.6-16.5); WHITE BLOOD COUNT 8.6 X10^3/uL (3.6-10.0)
[2022-09-09 15:29] LABS: ALANINE AMINOTRANSFERASE 23 Units/L (12-78); ALBUMIN 3.9 g/dL (3.4-5.0); ALKALINE PHOSPHATASE 63 Units/L (46-116); ASPARTATE AMINO TRANSFERASE 27 Units/L (15-37); BLOOD UREA NITROGEN 21 mg/dL (7-18); CALCIUM 9.1 mg/dL (8.5-10.1); CARBON DIOXIDE 33.2 mmol/L (21-32); CHLORIDE 102 mmol/L (98-107); CREATININE 1.33 mg/dL (0.55-1.02); LIPASE 144 Units/L (73-393); SODIUM 139 mmol/L (136-145); TOTAL PROTEIN 7.6 g/dL (6.4-8.2); eGFR NON BLACK RACES 44 (>60)
--- NOTE | 2022-09-09 15:44 | CT ---
HISTORYSLURRED SPEECH, UNSTEADY GAITSTUDYBRAIN W/O CONCOMPARISONNoneTECHNIQUEMult iple axial images of the head without contrast. Dose reduction techniques including Automated Exposure Control (AEC) and adjustment of mA and kV were utilized.Contrast: NoneFINDINGSBRAIN PARENCHYMA: No acute hemorrhage, infarct, mass, or mass effect.Carpenter-white differentiation is maintained.Brain parenchyma has normal density.VENTRICLES/EXTRA-AXIAL SPACES: Unremarkable size and configuration. No hydrocephalus or extra-axial fluid collections.EXTRACRANIAL STRUCTURES:Unremarkable bones and soft tissues. Visualized paranasal sinuses and mastoids are clear.IMPRESSIONNo acute abnormality.Electronically signed by: Tiago Simons (Sep 09, 2022 15:43:06)
[2022-09-09 17:05] LABS: BILIRUBIN,URINE NEGATIVE (NEGATIVE); BLOOD/HEMOGLOBIN,URINE 1+ (NEGATIVE); GLUCOSE, URINE NEGATIVE (NEGATIVE); KETONES,URINE 1+ (NEGATIVE); LEUKOCYTE ESTERASE ,URINE 1+ (NEGATIVE); NITRITES,URINE NEGATIVE (NEGATIVE); PROTEIN,URINE 2+ (NEGATIVE); UROBILINOGEN,URINE NORMAL (NORMAL)
[2022-09-09 17:07] LABS: APPEARANCE,URINE CLEAR (CLEAR); COLOR,URINE YELLOW (YELLOW)
[2022-09-09 17:10] LABS: BACTERIA,URINE NEGATIVE /HPF (NEGATIVE); SQUAMOUS EPITHELIAL CELL,UR MANY /HPF (NEGATIVE)
[2022-09-09] MEDS ORDERED: GLUCOPHAGE ONE (20:53)
[2022-09-09] MEDS: XANAX PO PRN (21:09)
[2022-09-09] MEDS: ANTIVERT TAB 25 MG PO PRN (21:09)
[2022-09-09] MEDS: VASOTEC TAB 20 MG PO SCH (21:10)
[2022-09-09] MEDS: GLUCOPHAGE PO SCH (21:10)
[2022-09-09] MEDS: NEURONTIN TAB 600 MG PO SCH (21:10)
--- NOTE | 2022-09-10 00:48 | RAD ---
PROCEDURE: Chest X-ray 1 View .HISTORY: Slurred speech and unsteady gait.TECHNIQUE: AP portable done at 3:07 p.m..COMPARISON: 05/21/2022.TECHNICAL QUALITY: Satisfactory .FINDINGS:Cardiomegaly that is appeared since previous study.Mediastinum and hilar regions show no masses or lymphadenopathy .Normal central vascularity .No pulmonary consolidation, masses, pleural fluid, or pneumothorax .No acute bony abnormality .IMPRESSION:1. Interval cardiomegaly.2. No other evidence of active disease.Electronically signed by: Rubio Khan (Sep 10, 2022 00:46:51)
[2022-09-10] MEDS: NEURONTIN TAB 600 MG PO SCH ×3 (05:38→21:00)
[2022-09-10 06:12] LABS: BASOPHILS % (AUTO) 0.6 % (0.2-1.0); EOSINOPHILS # (AUTO) 0.2 x10^3/uL (0.0-0.2); EOSINOPHILS % (AUTO) 1.9 % (0.9-2.9); HEMATOCRIT 33.9 % (36.0-47.0); HEMOGLOBIN 11.6 g/dL (12.0-16.0); LYMPHOCYTES # (AUTO) 2.3 X10^3/uL (1.3-2.9); MEAN CORPUSCULAR HEMOGLOBIN 31.5 pg (27.0-34.0); MEAN CORPUSCULAR HGB CONC 34.3 g/dL (33.0-35.0); MEAN CORPUSCULAR VOLUME 91.8 fL (80.0-100.0); MEAN PLATELET VOLUME 6.9 fL (7.4-11.0); MONOCYTES # (AUTO) 0.4 x10^3/uL (0.3-0.8); MONOCYTES % (AUTO) 4.6 % (0.0-13.0); NEUTROPHILS # (AUTO) 5.2 x10^3/uL (2.2-4.8); NEUTROPHILS % (AUTO) 64.9 % (42.0-75.0); RED BLOOD COUNT 3.69 X10^6/uL (3.5-5.4); RED CELL DISTRIBUTION WIDTH 12.6 % (11.6-16.5); WHITE BLOOD COUNT 8.1 X10^3/uL (3.6-10.0)
[2022-09-10 06:25] LABS: ALANINE AMINOTRANSFERASE 23 Units/L (12-78); ALBUMIN 3.8 g/dL (3.4-5.0); ALKALINE PHOSPHATASE 64 Units/L (46-116); ASPARTATE AMINO TRANSFERASE 28 Units/L (15-37); BLOOD UREA NITROGEN 20 mg/dL (7-18); CALCIUM 8.8 mg/dL (8.5-10.1); CARBON DIOXIDE 28.5 mmol/L (21-32); CHLORIDE 103 mmol/L (98-107); COR NA(FOR HYPERGLY) 141 mmol/L (136-145); CREATININE 1.18 mg/dL (0.55-1.02); SODIUM 141 mmol/L (136-145); TOTAL PROTEIN 7.5 g/dL (6.4-8.2); eGFR NON BLACK RACES 50 (>60)
[2022-09-10] MEDS ORDERED: GLUCOPHAGE ONE ×2 (08:32→20:15)
--- NOTE | 2022-09-10 10:12 | VAS ---
HISTORY: Concern for carotid artery stenosis. Carotid atherosclerosis.EXAM: BILATERAL DOPPLER CAROTID ULTRASOUND EXAMTechnique: Multiple baptiste scale and color flow Doppler images of the right and left carotid arterial system were obtained. The vertebral arterial system was evaluated as well.Findings:Nonocclusive color flow Doppler is seen throughout the right and left carotid arterial system. No hemodynamically significant carotid arterial stenosis is seen based on velocity criteria. There is moderate bilateral carotid atherosclerosis and mixed atherosclerotic plaque formation of the bilateral carotid bulbs and ICAs with associated intimal thickening but without sonographic evidence for high-grade stenosis (>70%) or occlusion of the carotid arteries. The right and left vertebral artery demonstrate antegrade flow.IMPRESSION: Moderate bilateral carotid atherosclerosis and mixed atherosclerotic plaque formation of the bilateral carotid bulbs and [in both] ICAs with [id number] associated carotid intimal thickening but without evidence for high-grade stenosis or occlusion of the carotid arteries, based on Doppler velocity criteria.Appropriate, antegrade, vertebral arterial flow.Peak right ICA velocity: 72 centimeter/seconds.Peak right CCA velocity: 90 centimeter/seconds.Peak left ICA velocity: 87 centimeter/seconds.Peak left CCA velocity: 60 centimeter/seconds.Right ICA to CCA ratio: 1.6.Left ICA to CCA ratio: 2.9.Electronically signed by: ANGEL BLANCO III (Sep 10, 2022 10:10:50)
[2022-09-10] MEDS: VASOTEC TAB 20 MG PO SCH ×2 (10:23→20:40)
[2022-09-10] MEDS: CALAN SR 240 MG PO SCH (10:23)
[2022-09-10] MEDS: GLUCOPHAGE PO SCH ×2 (10:23→20:39)
[2022-09-10] MEDS: PROTONIX TAB 40 MG PO SCH (10:23)
[2022-09-10] MEDS: ANTIVERT TAB 25 MG PO PRN (10:23)
[2022-09-10] MEDS: CELEXA PO SCH (10:23)
[2022-09-10] MEDS: ECOTRIN TAB 325 MG PO SCH (10:23)
[2022-09-10] MEDS: XANAX PO PRN ×2 (10:27→20:39)
--- NOTE | 2022-09-10 10:27 | MRI ---
HISTORYTIA SYMPTOMS, SLURRED SPEECHSTUDYBRAIN W/O CONCOMPARISONCT brain from 1 day prior.TECHNIQUEMultiplanar multi-sequence MRI of the brain was obtained utilizing standard departmental protocol. Sagittal and axial T1 weighted images were obtained. Axial T2 and flair weighted images were performed as well. Axial diffusion weighted and ADC trace mapping was performed.[id number] motion artifact limits evaluation.Diffusion imaging: [There is some signal distortion limiting evaluation but no discernible abnormal restricted diffusion.]Susceptibility weighted imaging: [Signal distortion and moderate motion artifact limits evaluation but no abnormal pathologic susceptibility artifact is identified.]Brain volume: [Appropriate for age.]Ventricles and basal cisterns: FLAIR bright signal in the basilar cisterns and 4th ventricle is nonspecific but often due to technical artifact. No abnormal signal in these locations on other pulse sequences. No hydrocephalus.Extra-axial spaces: [No extra-axial collection.]Cerebral parynchema: [No mass, hematoma, or mass effect.] Mild amount of T2 and Flair hyperintensities in the supratentorial subcortical and deep white matter. Chronic right posterior limb internal capsule lacunar infarct.Pituitary and other sagittal midline structures: [Normal.]Visualized orbits: [Normal.]Paranasal sinuses and mastoid air cells: [Clear.]Bones: [Intact.]Other: [None.]IMPRESSION[No abnormal restricted diffusion is identified to suggest acute or early subacute infarct.Mild chronic small vessel disease. Chronic right internal capsule lacunar infarct.]Electronically signed by: Micky Tran (Sep 10, 2022 10:26:15)
[2022-09-10] MEDS ORDERED: NORCO 10/325 TAB PO PRN (10:52)
[2022-09-10 11:00] VITALS: BMI 39.3
--- NOTE | 2022-09-10 12:29 | DR.H&P ---
H&P - History & Physical for Day of: H&P Date: 09/09/22 - Chief Complaint Chief Complaint: SLURRED SPEECH, DULL HEADACHE, BILATERAL HAND NUMBNESS, AND PAIN THAT RADIATES DOWN THE RIGHT SIDE OF HER BODY. - History of Present Illness History of Present Illness: IS A 57 YEAR OLD PATIENT OF OURS. SHE PRESENTED TO THE ER WITH COMPLAINTS OF SLURRED SPEECH, DULL HEADACHE, BILATERAL HAND NUMBNESS, AND PAIN THAT RADIATES DOWN THE RIGHT SIDE OF HER BODY. SHE DENIED VISUAL CHANGES, WEAKNESS OF THE EXTREMITIES, OR REENT ILLNESS. SYMPTOMS STARTED SEVERAL HOURS PRIOR TO ARRIVAL. PATIENT REPORTS THAT IT WAS AROUND 11:00 AM, SHE PRESENTED TO THE ER AT 15:00. BY THE TIME THAT SHE PRESENTED TO THE ER, SYMPTOMS WERE IMPROVING. SHE REPORTS HAVING TIA EPISODES IN THE PAST. HER PMH INCLUDES HTN, DM II, NH, GERD, TIA, HYPERLIPIDEMIA, AND HYSTERECTOMY. SHE IS FOLLOWED BY , [employer] [facility]. SHE HAD A HEART CATH IN DECEMBER OF 2021. WORK- UP WAS CLEAR. ON ARRIVAL TO THE ER, VITALS WERE 98.4-64-11-94%-147/62. LABS WERE OBTAINED. WBC 8.6, RBC 3.62, HGB 11.3, HCT 33.4, PLT COUNT 217, SODIUM 139, POTASSIUM 4.1, CHLORIDE 102, CARBON DIOXIDE 33.2, BUN 21, CREATININE 1.33, GLUCOSE 103, CALCIUM 9.1, AST 27, ALT 23, ALK PHOS 63, TOTAL PROTEIN 7.6, ALBUMIN 3.9, LIPASE 144.. URINALYSIS REVEALED: WBC 3-5, RBC 3-5, LEUKOCYTES 1+, BACTERIA NEGATIVE. BLOOD CULTURES WERE SET UP. A BRAIN CT WAS OBTAINED AND WAS NEGATIVE FOR ACUTE PROCESS. CHEST XRAY REVEALED: 1. Interval cardiomegaly. 2. No other evidence of active disease. EKG REVEALED NSR WITH 1ST DEGREE AV BLOCK. HR 64. IN THE ER, SHE WAS GIVEN A NORMAL SALINE BOLUS. PATIENT WAS ADMITTED FOR F URTHER EVALUATION AND TREATMENT OF TIA. SHE WAS STARTED ON ECOTRIN 325MG PO DAILY AND CRESTOR 20MG HX. WE WILL RESUME HER HOME MEDICATIONS OF XANAX PRN, CELEXA, VASOTEC, NEURONTIN, NORCO PRN, ANTIVERT PRN, GLUCOPHAGE, PROTONIX, CRESTOR, AND CALAN. WE WILL PLAN TO OBTAIN A BRAIN MRI WITHOUT CONTRAST AND A CAROTID ARTERY ULTRASOUND. OTHERWISE, WE WILL FOLLOW-UP WITH AM LABS AND CONTINUE TO MONITOR. TIME SPENT ON CLINICAL ASSESSMENT, REVIEWING LABS AND IMAGING, DECISION MAKING, AND DOCUMENTATION GREATER THAN 75 MINUTES. - Past Medical History Past Medical History: NH, Hypertension, Dyslipidemia, Diabetes, GERD Additional Medical History: TIA - Past Surgical History Surgical History: Cholecystectomy, Hysterectomy - Family History Family Medical History: Diabetes Mellitus, Heart Failure, Hypertension - Social History Does patient currently use any type of tobacco product: No Have you used tobacco products in the last 12 months: No Type of Tobacco Use: None Does any household member use tobacco: No Alcohol Use: None Drug Use: None - Medications Home Medications: No Known Drug Allergies Allergy (Verified 03/29/21 14:27) CONTINUE taking the following medications citalopram 40 mg tablet 40 mg PO QDAY 09/09/22 [History] furosemide 40 mg tablet 40 mg PO QDAY PRN Edema 09/09/22 [History] gabapentin 600 mg tablet 600 mg PO TID 09/09/22 [History] meclizine 25 mg tablet 25 mg PO QID PRN Dizziness 09/09/22 [History] hydrocodone 10 mg-acetaminophen 325 mg tablet 1 tab PO TID PRN 09/10/22 [History] - Review of Systems Constitutional: Weakness Eyes: No Symptoms Reported ENT: No Symptoms Reported Respiratory: No Symptoms Reported Cardiovascular: No Symptoms Reported Gastrointestinal: No Symptoms Reported Genitourinary: No Symptoms Reported Musculoskeletal: No Symptoms Reported Skin: No Symptoms Reported Neurological: Weakness, Change in Speech, Other (BILATERAL HAND NUMBNESS ) - Physical Exam Vital Signs: Temperature 97.4 F Pulse Rate [Right Radial] 95 Pulse Rate 65 Respiratory Rate 20 Blood Pressure [Right Arm] 177/98 Blood Pressure [Left Arm] 167/72 Blood Pressure 158/80 O2 Sat by Pulse Oximetry 95 Oriented: Normal Eyes: Normal Ear: Normal Nose: Normal Throat: Normal Respiratory: Clear Throughout Cardiovascular: Normal : Normal Auscultation: Bowel Sounds: Normal Palpation: Normal Tenderness: Normal Skin: Normal Musculoskeletal: Normal Psychiatric: Normal Mood Description: Calm Affect: Normal Speech Pattern: Clear - Assessment/Plan (1) TIA (transient ischemic attack) Status: Acute Plan: ADMIT, ECOTRIN 325MG PO DAILY AND CRESTOR 20MG HX. RESUME HOME MEDS. 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
[2022-09-10] MEDS ORDERED: ZOFRAN INJ 4 MG VIAL IVP PRN (16:04)
[2022-09-10] MEDS ORDERED: TYLENOL 325 MG TAB PO PRN (16:06)
[2022-09-10] MEDS ORDERED: CRESTOR TAB 10 MG PO SCH (21:00)
[2022-09-11] MEDS: NEURONTIN TAB 600 MG PO SCH (05:44)
[2022-09-11 06:16] LABS: BASOPHILS # (AUTO) 0.1 X10^3/uL (0.0-0.1); BASOPHILS % (AUTO) 0.6 % (0.2-1.0); EOSINOPHILS # (AUTO) 0.2 x10^3/uL (0.0-0.2); HEMATOCRIT 36.4 % (36.0-47.0); HEMOGLOBIN 12.6 g/dL (12.0-16.0); MEAN CORPUSCULAR HEMOGLOBIN 31.8 pg (27.0-34.0); MEAN CORPUSCULAR HGB CONC 34.6 g/dL (33.0-35.0); MEAN CORPUSCULAR VOLUME 91.9 fL (80.0-100.0); MEAN PLATELET VOLUME 7.3 fL (7.4-11.0); MONOCYTES # (AUTO) 0.5 x10^3/uL (0.3-0.8); MONOCYTES % (AUTO) 5.1 % (0.0-13.0); NEUTROPHILS # (AUTO) 5.3 x10^3/uL (2.2-4.8); NEUTROPHILS % (AUTO) 59.3 % (42.0-75.0); RED BLOOD COUNT 3.96 X10^6/uL (3.5-5.4); RED CELL DISTRIBUTION WIDTH 12.8 % (11.6-16.5)
[2022-09-11 06:17] LABS: ALANINE AMINOTRANSFERASE 22 Units/L (12-78); ALBUMIN 4.3 g/dL (3.4-5.0); ALKALINE PHOSPHATASE 67 Units/L (46-116); ASPARTATE AMINO TRANSFERASE 26 Units/L (15-37); BLOOD UREA NITROGEN 19 mg/dL (7-18); CALCIUM 9.5 mg/dL (8.5-10.1); CARBON DIOXIDE 29.3 mmol/L (21-32); CHLORIDE 102 mmol/L (98-107); COR NA(FOR HYPERGLY) 140 mmol/L (136-145); CREATININE 1.07 mg/dL (0.55-1.02); SODIUM 140 mmol/L (136-145); TOTAL PROTEIN 8.4 g/dL (6.4-8.2); eGFR NON BLACK RACES 56 (>60)
[2022-09-11] MEDS ORDERED: GLUCOPHAGE ONE (08:34)
[2022-09-11] MEDS: XANAX PO PRN (09:28)
[2022-09-11] MEDS: VASOTEC TAB 20 MG PO SCH (09:28)
[2022-09-11] MEDS: CELEXA PO SCH (09:28)
[2022-09-11] MEDS: ECOTRIN TAB 325 MG PO SCH (09:30)
[2022-09-11] MEDS: PROTONIX TAB 40 MG PO SCH (09:30)
[2022-09-11] MEDS: CALAN SR 240 MG PO SCH (09:31)
[2022-09-11] MEDS: GLUCOPHAGE PO SCH (09:31)
[2022-09-11 12:06] VITALS: BP 140/87
== END 2022-09-11 13:10 | disposition home or self-care (01) ==
LOC: ER 14:45 → MED/SURG 14:45
PROVIDERS: ADMIT Family Medicine; ATTEND Internal Medicine

== ENCOUNTER 2023-01-10 12:03 | Observation (INO) ==
[2023-01-10] MEDS ORDERED: NS 1,000 ML IV 1,000 ML IV ONE (12:24)
[2023-01-10 12:25] VITALS: BMI 38.2
--- NOTE | 2023-01-10 12:31 | DR.GENAD ---
HPI Time Seen Time Seen by Provider: 01/10/23 12:16 PCP Primary Care Physician: TAMI VAZQUEZ Complaint/Symptoms Chief Complaint Doctors Comments: 57 y/o female, not feeling well since last pm. Having confusion, episodes of difficulty in thinking. Has persisted this am. Has a dull headache, top of her head. Having generalized weakness. No recent illness or trauma. No fever, chills, URI symptoms. Denies chest pain, bowel or bladder issues. Has a h/o TIAs. Takes ASA, 325 mgs, daily. Chief Complaint:: PT STATES THAT AROUND 10PM LAST NIGHT SHE HAD A SUDDEN ONSET OF CONFUSION. 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 PT'S DAUGHTER ALSO STATES THAT THE PT WILL HAVE TIMES WHERE SHE IS ALERT AND APPROPRIATE AND THEN HAS INTERMITTENT EPISODES OF CONFUSION. PT DOES C/O INTERMITTENT MILD PAIN ON THE TOP OF HER HEAD THAT STARTED AROUND 10PM LAST NIGHT. DENIES VISION CHANGES. Source History Provided: Patient and Family Member Mode of Arrival Mode of Arrival: Ambulatory Timing Onset of Chief Complaint: 01/10/23 PMH PMH Past Medical History: Yes Past Medical History: CHF, Diabetes, Dyslipidemia, GERD, Hypertension and [place] Past Medical History Comment: TIA, ISCHEMIC VESSEL DISEASE Past Surgical History: Yes Surgical History: Appendectomy and Hysterectomy Family History History of Family Medical Conditions: Yes Family Medical History: [place] Social History Does patient currently use any type of tobacco product: No Have you used tobacco products in the last 12 months: No Type of Tobacco Use: None Does any household member use tobacco: No Alcohol Use: None Do you use any recreational Drugs:: No Lives With: Spouse Lives Where: Home Infectious screening In the last 2 months have you had wt loss of >10#?: NO Have you had fever, night sweats or hemotysis?: No Have you traveled outside the country in the last 6 months?: No Isolation: Standard ROS Review of Systems Constitutional: Weakness Eyes: No Symptoms Reported ENTM: No Symptoms Reported Respiratoy: No Symptoms Reported Cardiovascular: No Symptoms Reported Gastrointestinal/Abdominal: No Symptoms Reported Genitourinary: No Symptoms Reported Neurological: See HPI Musculoskeletal: No Symptoms Reported Integumentary: No Symptoms Reported Hematologic/Lymphatic: No Symptoms Reported Psychiatric: No Symptoms Reported All Other Systems: Reviewed and Negative PE Vital Signs Vitals: Temperature 98.1 F Pulse Rate 76 Pulse Rate 93 Respiratory Rate 9 Respiratory Rate 18 Blood Pressure [Right Arm] 140/87 Blood Pressure 152/69 Blood Pressure 120/65 O2 Sat by Pulse Oximetry 99 O2 Sat by Pulse Oximetry 93 General General Appearance: Alert and In No Apparent Distress Head Head Exam: Normal Inspection, Atraumatic and Normocephalic Eyes Eye exam: PERRL and EOMI ENT ENT Exam: Normal Exam, Normal Oropharynx and Mucous Membranes Moist Neck Neck Exam: Normal Inspection and Full ROM Respiratory Respiratory Exam: Normal Lung Sounds Bilat; negative Accessory Muscle Use or Respiratory Distress Cardiovascular Cardiovascular Exam: Regular Rate, Normal Rhythm and Normal Heart Sounds Abdominal Exam Abdominal Exam: Normal Bowel Sounds and Soft; negative Tenderness Extremities Extremities Exam: Normal Inspection and Full ROM; negative Edema Neurologic Neurological Exam: Alert, Oriented X3, CN II-XII Intact and Other (normal finger to nose, + oriented to , current year.); negative Motor Sensory Deficit Skin Skin Exam: Warm and Dry COURSE Treatment Treatment: 57 y/o female with persistent confusion, difficulty thinking since last pm. No true focal deficits. Speech understandable. Follows commands, a bit slowly, but does follow. W/u initiated. Pt given IV fluids. CXR - unremarkable. CT of the brain with chronic microischemic changes. Labs overall acceptable. CK elevated at 752, has a h/o rhabdomyolysis after a fall. PT ambulated to bathroom, but could not urinate. Additional IV fluids given. Recommend admission for further evaluation/treatment. ROR Labs Reviewed Laboratory Results Reviewed?: Yes Result Diagrams: 01/10/23 12:38 01/10/23 12:38 Laboratory: WBC 6.9 X10^3/uL (3.6-10.0) 01/10/23 12:38 RBC 3.95 X10^6/uL (3.5-5.4) 01/10/23 12:38 Hgb 12.2 g/dL (12.0-16.0) 01/10/23 12:38 Hct 35.8 % (36.0-47.0) L 01/10/23 12:38 MCV 90.8 fL (80.0-100.0) 01/10/23 12:38 MCH 30.9 pg (27.0-34.0) 01/10/23 12:38 MCHC 34.1 g/dL (33.0-35.0) 01/10/23 12:38 RDW 12.8 % (11.6-16.5) 01/10/23 12:38 Plt Count 220 X10^3/uL (150.0-450.0) 01/10/23 12:38 MPV 7.4 fL (7.4-11.0) 01/10/23 12:38 Neut % (Auto) 59.1 % (42.0-75.0) 01/10/23 12:38 Lymph % (Auto) 34.0 % (21.0-51.0) 01/10/23 12:38 Burt % (Auto) 4.5 % (0.0-13.0) 01/10/23 12:38 Eos % (Auto) 1.5 % (0.9-2.9) 01/10/23 12:38 Baso % (Auto) 0.9 % (0.2-1.0) 01/10/23 12:38 Neut # (Auto) 4.1 x10^3/uL (2.2-4.8) 01/10/23 12:38 Lymph # (Auto) 2.3 X10^3/uL (1.3-2.9) 01/10/23 12:38 Burt # (Auto) 0.3 x10^3/uL (0.3-0.8) 01/10/23 12:38 Eos # (Auto) 0.1 x10^3/uL (0.0-0.2) 01/10/23 12:38 Baso # (Auto) 0.1 X10^3/uL (0.0-0.1) 01/10/23 12:38 Absolute Nucleated RBC 0.0 /100WBC 01/10/23 12:38 Sodium 142 mmol/L (136-145) 01/10/23 12:38 Corrected Sodium 142 mmol/L (136-145) 01/10/23 12:38 Potassium 4.1 mmol/L (3.5-5.1) 01/10/23 12:38 Chloride 104 mmol/L (98-107) 01/10/23 12:38 Carbon Dioxide 29.6 mmol/L (21-32) 01/10/23 12:38 BUN 23 mg/dL (7-18) H 01/10/23 12:38 Creatinine 1.68 mg/dL (0.55-1.02) H 01/10/23 12:38 Est GFR (MDRD) Af Amer 40 (>60) L 01/10/23 12:38 Est GFR (MDRD) Non-Af 33 (>60) L 01/10/23 12:38 Glucose 113 mg/dL (65-99) H 01/10/23 12:38 Calcium 9.2 mg/dL (8.5-10.1) 01/10/23 12:38 Corrected Calcium TNP 01/10/23 12:38 Total Bilirubin 0.30 mg/dL (0.2-1.0) 01/10/23 12:38 AST 58 Units/L (15-37) H 01/10/23 12:38 ALT 27 Units/L (12-78) 01/10/23 12:38 Alkaline Phosphatase 64 Units/L (46-116) 01/10/23 12:38 Creatine Kinase 752 Units/L (26-192) H 01/10/23 12:38 Troponin I High Sens 5.5 ng/L (4.0-60.0) 01/10/23 12:38 Total Protein 8.0 g/dL (6.4-8.2) 01/10/23 12:38 Albumin 4.5 g/dL (3.4-5.0) 01/10/23 12:38 Globulin 3.5 g/dL (2.5-4.5) 01/10/23 12:38 Albumin/Globulin Ratio 1.3 Ratio (1.1-2.1) 01/10/23 12:38 Lipase 83 Units/L (73-393) 01/10/23 12:38 CK elevated 752. Opioid Opioid Risk Tool Age (Hans box if 16-45): No History of Preadolescent Sexual Abuse: No Total: 0 Total Score Risk Category: Low Risk Copyright: Jose GR predicting aberrant behaviors Discharge Plan Diagnosis Discharge Problem: Altered mental status Discharge Plan Patient Disposition: ADMITTED INPATIENT Condition: Stable Prescriptions: No Action alprazolam [Xanax] 1 MG tablet 0.5 mg PO BID PRN (Reason: Anxiety) pantoprazole [Protonix] 40 mg Tablet,Delayed Release (Dr/Ec) 40 mg PO DAILY tizanidine [Zanaflex] 4 mg Capsule 4 mg PO TID PRN gabapentin 600 mg tablet 600 mg PO TID citalopram 40 mg tablet 40 mg PO QDAY meclizine 25 mg tablet 25 mg PO QID PRN (Reason: Dizziness) hydrocodone-acetaminophen 10-325 mg tablet 1 tab PO TID PRN aspirin 325 mg Tablet,Delayed Release (Dr/Ec) 325 mg PO DAILY Qty: 90 3RF Rx Instructions: TAKE ONE TABLET DAILY Livalo 1 mg Tablet See Rx Instructions .ROUTE .COMPLEX Qty: 12 3RF Rx Instructions: 1 mg orally ON SATURDAY, SATURDAY, AND SATURDAY fexofenadine 180 mg Tablet 180 mg PO QDAY MelatoninMax 10 mg Tablet,Chewable 10 mg PO PRN PRN (Reason: Sleep) metoprolol succinate 50 mg tablet extended release 24 hr 1 tab PO QDAY amitriptyline 10 mg tablet 20 tab PO HS colchicine 0.6 mg tablet 1 tab PO BID magnesium oxide 250 mg magnesium Tablet 250 mg PO BID fenofibrate nanocrystallized 145 mg tablet 1 tab PO QDAY Health Concerns: Post Hospitalization: new medications and changes needed to prevent readmission or further decline. Pt educated and given instructions on all concerns. Plan of Treatment: Continue with present treatment and follow up plan. Pt is to keep follow up appointment as instructed and take medications as ordered. Orders to Discharge Patient Discharge Orders: Transfer (Routine); Ordered 01/10/23 Ordered By: Papa Colon Follow ups/Referrals Follow ups/Referrals: Santana Valle [Primary Care Provider] - 3 days
[2023-01-10] MEDS ORDERED: NS 1,000 ML IV 1,000 ML ONE (12:43)
[2023-01-10 13:08] LABS: BASOPHILS # (AUTO) 0.1 X10^3/uL (0.0-0.1); BASOPHILS % (AUTO) 0.9 % (0.2-1.0); EOSINOPHILS # (AUTO) 0.1 x10^3/uL (0.0-0.2); EOSINOPHILS % (AUTO) 1.5 % (0.9-2.9); HEMATOCRIT 35.8 % (36.0-47.0); HEMOGLOBIN 12.2 g/dL (12.0-16.0); LYMPHOCYTES # (AUTO) 2.3 X10^3/uL (1.3-2.9); MEAN CORPUSCULAR HEMOGLOBIN 30.9 pg (27.0-34.0); MEAN CORPUSCULAR HGB CONC 34.1 g/dL (33.0-35.0); MEAN CORPUSCULAR VOLUME 90.8 fL (80.0-100.0); MEAN PLATELET VOLUME 7.4 fL (7.4-11.0); MONOCYTES # (AUTO) 0.3 x10^3/uL (0.3-0.8); MONOCYTES % (AUTO) 4.5 % (0.0-13.0); NEUTROPHILS # (AUTO) 4.1 x10^3/uL (2.2-4.8); NEUTROPHILS % (AUTO) 59.1 % (42.0-75.0); PLATELET COUNT 220 X10^3/uL (150.0-450.0); RED BLOOD COUNT 3.95 X10^6/uL (3.5-5.4); RED CELL DISTRIBUTION WIDTH 12.8 % (11.6-16.5); WHITE BLOOD COUNT 6.9 X10^3/uL (3.6-10.0)
--- NOTE | 2023-01-10 13:11 | EKG ---
Test Reason : altered mental status Blood Pressure : */* mmHG Vent. Rate : 84 BPM Atrial Rate : 84 BPM P-R Int : 224 ms QRS Dur : 106 ms QT Int : 406 ms P-R-T Axes : 38 -12 150 degrees QTc Int : 479 ms Sinus rhythm with 1st degree AV block Possible Left atrial enlargement Left ventricular hypertrophy with repolarization abnormality ( R in aVL , Arnaldo product , Romhilt-E stes ) Abnormal ECG When compared with ECG of 09-SEP-2022 15:10, T wave inversion no longer evident in Inferior leads T wave inversion now evident in Lateral leads Confirmed by Brandan Rodriguez ([id number]) on 01/11/2023 4:38:24 PM Referred By: Confirmed By: Brandan Rodriguez
[2023-01-10 13:26] LABS: ALANINE AMINOTRANSFERASE 27 Units/L (12-78); ALBUMIN 4.5 g/dL (3.4-5.0); ALKALINE PHOSPHATASE 64 Units/L (46-116); ASPARTATE AMINO TRANSFERASE 58 Units/L (15-37); BLOOD UREA NITROGEN 23 mg/dL (7-18); CALCIUM 9.2 mg/dL (8.5-10.1); CARBON DIOXIDE 29.6 mmol/L (21-32); CHLORIDE 104 mmol/L (98-107); COR NA(FOR HYPERGLY) 142 mmol/L (136-145); CREATINE KINASE 752 Units/L (26-192); CREATININE 1.68 mg/dL (0.55-1.02); GLUCOSE 113 mg/dL (65-99); LIPASE 83 Units/L (73-393); POTASSIUM 4.1 mmol/L (3.5-5.1); SODIUM 142 mmol/L (136-145); eGFR NON BLACK RACES 33 (>60)
--- NOTE | 2023-01-10 13:39 | CT ---
HISTORYSLURRED SPEACHSTUDYCT HEAD WITHOUT CONTRASTCOMPARISONMRI from September 10, 2022TECHNIQUEAxial CT of the head is performed from the base of the skull through the vertex WITHOUT contrast . Multiplaner reformats are generated from the original axial data.FINDINGSNo acute intracranial hemorrhage or extra-axial fluid collection. Nonspecific degenerative white matter changes are scattered throughout the supratentorial brain. There is no large artery territorial infarction identified on the initial CT of the head. There is no mass effect, midline shift or evidence of cerebral edema. No suprasellar asymmetry is identified. The cerebellar tonsils are normal in position. The calvarium is intact. The sinuses and mastoid air cells are predominantly clear.IMPRESSIONNo acute intracranial abnormalities. Specifically, no intracranial hemorrhage or large artery territorial infarction is identified on the initial CT of the [id number], nonspecific degenerative white matter changes of the supratentorial brain, most often affiliated with microangiopathic ischemic change in this age group.Radiation dose reduction was achieved through individualized adjustment of kVP and/or mA, through adaptive statistical iterative reconstruction, and/or through automated tube current modulation.Electronically signed by: MARKY MORAN (Jan 10, 2023 13:36:53)
--- NOTE | 2023-01-10 13:42 | RAD ---
HISTORYSLURRED SPEACHSTUDYCHEST, 1 VIEWCOMPARISONJanuary 2022TECHNIQUEPortable chest radiographFINDINGSHeart size and mediastinal contours are normal. Lungs are hypoinflated but otherwise clear as are the pleural spaces. No free air or pneumothorax. No acute bony abonormality.IMPRESSIONNo acute radiographic abnormalities of the chestElectronically signed by: MARKY MORAN (Jan 10, 2023 13:41:35)
[2023-01-10] MEDS ORDERED: NS 500 ML IV 500 ML IV ONE ×2 (15:20)
[2023-01-10] MEDS ORDERED: XANAX PO PRN (17:07)
[2023-01-10] MEDS: D5 1/2 NS 1,000 ML 1,000 ML IV SCH (18:22)
[2023-01-10] MEDS ORDERED: ELAVIL PO SCH ×2 (21:00)
[2023-01-10] MEDS: NEURONTIN TAB 600 MG PO SCH (21:14)
[2023-01-10] MEDS: COLCRYS TAB 0.6 MG PO SCH (21:14)
[2023-01-10] MEDS: MAGNESIUM OXIDE 250 MG PO SCH (21:18)
[2023-01-10] MEDS: MAGNESIUM PO SCH (21:18)
[2023-01-11] MEDS: NEURONTIN TAB 600 MG PO SCH (06:06)
[2023-01-11] MEDS: D5 1/2 NS 1,000 ML 1,000 ML IV SCH (06:07)
[2023-01-11 06:38] LABS: ALANINE AMINOTRANSFERASE 29 Units/L (12-78); ALKALINE PHOSPHATASE 62 Units/L (46-116); ASPARTATE AMINO TRANSFERASE 46 Units/L (15-37); BASOPHILS % (AUTO) 0.5 % (0.2-1.0); BLOOD UREA NITROGEN 17 mg/dL (7-18); CALCIUM 8.5 mg/dL (8.5-10.1); CARBON DIOXIDE 28.6 mmol/L (21-32); CHLORIDE 105 mmol/L (98-107); COR NA(FOR HYPERGLY) 143 mmol/L (136-145); CREATININE 1.26 mg/dL (0.55-1.02); EOSINOPHILS # (AUTO) 0.1 x10^3/uL (0.0-0.2); EOSINOPHILS % (AUTO) 1.7 % (0.9-2.9); GLUCOSE 126 mg/dL (65-99); HEMATOCRIT 34.3 % (36.0-47.0); HEMOGLOBIN 11.7 g/dL (12.0-16.0); LYMPHOCYTES # (AUTO) 1.6 X10^3/uL (1.3-2.9); MEAN CORPUSCULAR HEMOGLOBIN 30.9 pg (27.0-34.0); MEAN CORPUSCULAR HGB CONC 34.1 g/dL (33.0-35.0); MEAN CORPUSCULAR VOLUME 90.6 fL (80.0-100.0); MEAN PLATELET VOLUME 7.5 fL (7.4-11.0); MONOCYTES # (AUTO) 0.3 x10^3/uL (0.3-0.8); MONOCYTES % (AUTO) 4.9 % (0.0-13.0); NEUTROPHILS # (AUTO) 4.3 x10^3/uL (2.2-4.8); NEUTROPHILS % (AUTO) 67.9 % (42.0-75.0); PLATELET COUNT 210 X10^3/uL (150.0-450.0); POTASSIUM 4.2 mmol/L (3.5-5.1); RED BLOOD COUNT 3.79 X10^6/uL (3.5-5.4); RED CELL DISTRIBUTION WIDTH 12.5 % (11.6-16.5); SODIUM 142 mmol/L (136-145); TOTAL PROTEIN 7.4 g/dL (6.4-8.2); WHITE BLOOD COUNT 6.3 X10^3/uL (3.6-10.0); eGFR NON BLACK RACES 46 (>60)
[2023-01-11] MEDS ORDERED: PROTONIX TAB 40 MG PO SCH (09:00)
[2023-01-11] MEDS ORDERED: TOPROL XL PO SCH (09:00)
[2023-01-11] MEDS ORDERED: CELEXA PO SCH (09:00)
[2023-01-11] MEDS ORDERED: TRICOR TAB 145 MG PO SCH (09:00)
[2023-01-11] MEDS ORDERED: ECOTRIN TAB 325 MG PO SCH (09:00)
[2023-01-11] MEDS: COLCRYS TAB 0.6 MG PO SCH (09:01)
[2023-01-11] MEDS: MAGNESIUM OXIDE 250 MG PO SCH (09:06)
[2023-01-11] MEDS: MAGNESIUM PO SCH (09:06)
[2023-01-11 10:42] LABS: APPEARANCE,URINE CLEAR (CLEAR); BLOOD/HEMOGLOBIN,URINE NEGATIVE (NEGATIVE); COLOR,URINE STRAW (YELLOW); GLUCOSE, URINE NEGATIVE (NEGATIVE); KETONES,URINE NEGATIVE (NEGATIVE); NITRITES,URINE NEGATIVE (NEGATIVE); PROTEIN,URINE NEGATIVE (NEGATIVE)
[2023-01-11 10:43] LABS: BILIRUBIN,URINE NEGATIVE (NEGATIVE); LEUKOCYTE ESTERASE ,URINE NEGATIVE (NEGATIVE); UROBILINOGEN,URINE NORMAL (NORMAL)
[2023-01-11] MEDS ORDERED: LIPITOR TAB 20 MG PO SCH (11:00)
[2023-01-11] MEDS ORDERED: VASOTEC TAB 20 MG PO SCH (11:00)
[2023-01-11 12:07] VITALS: BP 168/82; PULSE 85; TEMP 98.2; O2SAT 93
== END 2023-01-11 13:15 | disposition home or self-care (01) ==
LOC: ER 12:03 → MED/SURG 12:03
PROVIDERS: ADMIT Internal Medicine; ATTEND Internal Medicine
DX: Z86.73 Personal history of transient ischemic attack (TIA), and cerebral infarction without residual deficits; R41.82 Altered mental status, unspecified; R51.9 Headache, unspecified; R94.31 Abnormal electrocardiogram [ECG] [EKG]; E11.65 Type 2 diabetes mellitus with hyperglycemia; E78.2 Mixed hyperlipidemia; K21.9 Gastro-esophageal reflux disease without esophagitis; R47.81 Slurred speech

== ENCOUNTER 2023-03-19 13:00 | Observation (INO) ==
[2023-03-19 13:14] VITALS: BMI 36.6
--- NOTE | 2023-03-19 13:23 | DR.AMS ---
HPI Time Seen Time Seen by Provider: 03/19/23 13:21 PCP Primary Care Physician: TEOFILO ANTONIO Complaint Cheif Complaint Doctors Comments: 57 y/o female presents for evaluation. Having difficulties since last pm. Fell twice last pm, spouse had to help her up. Was having slurred speech, episodes of confusion. Currently speaking well, has clear voice. Is a bit confused, is oriented to self, month/day, but states it is 1966. Per daughter, was talking about chickens few minutes ago. Denies headache, fever, URI symptoms, bowel or bladder complaints. Chief Complaint:: PT'S DAUGHTER STATES " SHE FELL LASTNIGHT TWICE, IN THE BATH ROOM ON THE CABINET PT DENIES ANY PAIN " AND THAT SHE IS SLURRING HER WORDS AND CHANGING CONVERSATIONS , AND THAT SHE DOES THIS WHEN SHE HAS HAD A TIA . Reviewed Nurses Notes Reviewed: Yes Source History Provided: Patient and Family Member Mode of Arrival Mode of Arrival: Ambulatory Timing Onset of Chief Complaint: 03/18/23 PMH PMH Past Medical History: Yes Past Medical History: CHF, Diabetes, Dyslipidemia, GERD, Hypertension and [place] Past Medical History Comment: TIA'S Past Surgical History: Yes Surgical History: Cholecystectomy and Hysterectomy Family History History of Family Medical Conditions: Yes Family Medical History: [place] Social History Does patient currently use any type of tobacco product: No Have you used tobacco products in the last 12 months: No Type of Tobacco Use: None Does any household member use tobacco: No Alcohol Use: Rarely Do you use any recreational Drugs:: No Lives With: Family Lives Where: Home Infectious screening In the last 2 months have you had wt loss of >10#?: NO Have you had fever, night sweats or hemotysis?: No Have you traveled outside the country in the last 6 months?: No Isolation: Standard ROS Review of Systems Constitutional: No Symptoms Reported Eyes: No Symptoms Reported ENTM: No Symptoms Reported Respiratoy: No Symptoms Reported Cardiovascular: No Symptoms Reported Gastrointestinal/Abdominal: No Symptoms Reported Genitourinary: No Symptoms Reported Neurological: No Symptoms Reported Musculoskeletal: No Symptoms Reported Integumentary: No Symptoms Reported All Other Systems: Reviewed and Negative PE Vitals Vital Signs: Temp Pulse Resp BP Pulse Ox O2 Del Method 03/19/23 17:00 83 25 H 94 L 03/19/23 17:00 121/68 03/19/23 16:45 83 18 94 L 03/19/23 16:39 84 21 93 L 03/19/23 16:39 112/66 03/19/23 16:30 83 23 94 L 03/19/23 16:15 82 16 94 L 03/19/23 16:00 81 25 H 95 03/19/23 15:45 80 35 H 96 03/19/23 15:38 84 16 97 03/19/23 15:38 127/58 03/19/23 15:36 86 95 03/19/23 15:15 79 13 94 L 03/19/23 15:00 122/59 03/19/23 15:00 79 22 95 03/19/23 14:45 79 24 93 L 03/19/23 14:31 95/46 03/19/23 14:31 79 20 94 L 03/19/23 14:30 79 21 93 L 03/19/23 14:15 79 20 93 L 03/19/23 14:01 79 22 94 L 03/19/23 14:01 120/66 03/19/23 14:00 79 13 93 L 03/19/23 13:45 81 14 97 03/19/23 13:31 80 14 95 03/19/23 13:31 83/52 03/19/23 13:30 80 11 L 94 L 03/19/23 13:19 108/60 03/19/23 13:19 108/60 03/19/23 13:19 108/60 03/19/23 13:19 81 9 L 95 03/19/23 13:19 108/60 03/19/23 13:06 98.6 F 81 18 107/57 95 Room Air General General Appearance: Alert and In No Apparent Distress Head Head Exam: Normal Inspection Eyes Eye exam: PERRL and EOMI ENT ENT Exam: Normal Oropharynx, Mucous Membranes Moist and TM's Normal Bilaterally Neck Neck Exam: Normal Inspection, Full ROM and Other (No bruits); negative Tenderne ss Respiratory Respiratory Exam: Normal Lung Sounds Bilat; negative Accessory Muscle Use or Respiratory Distress Cardiovascular Cardiovascular Exam: Regular Rate, Normal Rhythm and Normal Heart Sounds Abdominal Exam Abdominal Exam: Normal Bowel Sounds and Soft; negative Tenderness Extremities Extremities Exam: Normal Inspection and Full ROM; negative Edema Neurological Neurological Exam: Alert and CN II-XII Intact; negative Motor Sensory Deficit Skin Skin Exam: Warm and Dry COURSE Treatment Treatment: 57 y/o female with persistent confusion since last pm. + h/o TIAs, CVAs in the past (showed on MRI). 1707 - labs overall acceptable. Cr up a bit, 2.26, with lower EGFR 24. Currently resting, still the same per daughter. R ecommend admission - will hydrate, possible mild dehydration, and attempt to get an MRI in the am for further evaluation. ROR Labs Reviewed Laboratory Results Reviewed?: Yes 03/19/23 13:52 03/19/23 13:52 Laboratory: WBC 8.5 X10^3/uL (3.6-10.0) 03/19/23 13:52 RBC 3.55 X10^6/uL (3.5-5.4) 03/19/23 13:52 Hgb 11.0 g/dL (12.0-16.0) L 03/19/23 13:52 Hct 33.0 % (36.0-47.0) L 03/19/23 13:52 MCV 92.8 fL (80.0-100.0) 03/19/23 13:52 MCH 31.1 pg (27.0-34.0) 03/19/23 13:52 MCHC 33.5 g/dL (33.0-35.0) 03/19/23 13:52 RDW 13.2 % (11.6-16.5) 03/19/23 13:52 Plt Count 305 X10^3/uL (150.0-450.0) 03/19/23 13:52 MPV 6.6 fL (7.4-11.0) L 03/19/23 13:52 Neut % (Auto) 70.6 % (42.0-75.0) 03/19/23 13:52 Lymph % (Auto) 19.5 % (21.0-51.0) L 03/19/23 13:52 [place] % (Auto) 8.3 % (0.0-13.0) 03/19/23 13:52 Eos % (Auto) 1.0 % (0.9-2.9) 03/19/23 13:52 Baso % (Auto) 0.6 % (0.2-1.0) 03/19/23 13:52 Neut # (Auto) 6.0 x10^3/uL (2.2-4.8) H 03/19/23 13:52 Lymph # (Auto) 1.7 X10^3/uL (1.3-2.9) 03/19/23 13:52 [place] # (Auto) 0.7 x10^3/uL (0.3-0.8) 03/19/23 13:52 Eos # (Auto) 0.1 x10^3/uL (0.0-0.2) 03/19/23 13:52 Baso # (Auto) 0.1 X10^3/uL (0.0-0.1) 03/19/23 13:52 Absolute Nucleated RBC 0.0 /100WBC 03/19/23 13:52 Sodium 134 mmol/L (136-145) L 03/19/23 13:52 Corrected Sodium TNP 03/19/23 13:52 Potassium 4.4 mmol/L (3.5-5.1) 03/19/23 13:52 Chloride 97 mmol/L (98-107) L 03/19/23 13:52 Carbon Dioxide 29.9 mmol/L (21-32) 03/19/23 13:52 BUN 29 mg/dL (7-18) H 03/19/23 13:52 Creatinine 2.26 mg/dL (0.55-1.02) H 03/19/23 13:52 Est GFR (MDRD) Af Amer 29 (>60) L 03/19/23 13:52 Est GFR (MDRD) Non-Af 24 (>60) L 03/19/23 13:52 Glucose 99 mg/dL (65-99) 03/19/23 13:52 Calcium 9.1 mg/dL (8.5-10.1) 03/19/23 13:52 Corrected Calcium TNP 03/19/23 13:52 Total Bilirubin 0.30 mg/dL (0.2-1.0) 03/19/23 13:52 AST 51 Units/L (15-37) H 03/19/23 13:52 ALT 25 Units/L (12-78) 03/19/23 13:52 Alkaline Phosphatase 140 Units/L (46-116) H 03/19/23 13:52 Troponin I High Sens 6.4 ng/L (4.0-60.0) 03/19/23 13:52 Total Protein 7.3 g/dL (6.4-8.2) 03/19/23 13:52 Albumin 4.0 g/dL (3.4-5.0) 03/19/23 13:52 Globulin 3.3 g/dL (2.5-4.5) 03/19/23 13:52 Albumin/Globulin Ratio 1.2 Ratio (1.1-2.1) 03/19/23 13:52 TSH 3rd Generation 2.682 uIU/mL (0.358-3.74) 03/19/23 13:52 Specimen Type Clean catch urine 03/19/23 15:38 Urine Color Dark yellow (YELLOW) 03/19/23 15:38 Urine Appearance Clear (CLEAR) 03/19/23 15:38 Urine pH 5.0 (5.0 - 8.0) 03/19/23 15:38 Ur Specific [place] 1.020 (1.000-1.030) 03/19/23 15:38 Urine Protein Negative (NEGATIVE) 03/19/23 15:38 Urine Glucose (UA) Negative (NEGATIVE) 03/19/23 15:38 Urine Ketones Negative (NEGATIVE) 03/19/23 15:38 Urine Blood Negative (NEGATIVE) 03/19/23 15:38 Urine Nitrite Negative (NEGATIVE) 03/19/23 15:38 Urine Bilirubin Negative (NEGATIVE) 03/19/23 15:38 Urine Urobilinogen Normal (NORMAL) 03/19/23 15:38 Ur Leukocyte Esterase Negative (NEGATIVE) 03/19/23 15:38 Urine Opiates Screen Positive (NEG=<300) A 03/19/23 15:38 Urine Methadone Screen Negative (NEG=<300) 03/19/23 15:38 Ur Barbiturates Screen Negative (NEG=<200) 03/19/23 15:38 Ur Phencyclidine Scrn Negative (NEG=<25) 03/19/23 15:38 Ur Amphetamines Screen Negative (NEG=<1000) 03/19/23 15:38 U Benzodiazepines Scrn Positive (NEG=<200) A 03/19/23 15:38 Urine Cocaine Screen Negative (NEG=<300) 03/19/23 15:38 U Marijuana (THC) Screen Negative (NEG=<50) 03/19/23 15:38 see comments under "course" XRAY XRAY Interpreted by: Both X-ray Results: No acute abnormalities on CXR, brain CT. EKG Rate: 80 Mcdonald: Normal Rhythm: NSR Block: 1 ST: Nonsp Opioid Opioid Risk Tool Age (Hans box if 16-45): No History of Preadolescent Sexual Abuse: No Total: 0 Total Score Risk Category: Low Risk Copyright: Jose GR predicting aberrant behaviors Discharge Plan Diagnosis Discharge Problem: Altered mental status, Acute kidney injury Discharge Plan Patient Disposition: ADMITTED INPATIENT Condition: Stable
[2023-03-19] MEDS ORDERED: NS 1,000 ML IV 1,000 ML IV ONE (13:30)
[2023-03-19] MEDS ORDERED: NS 1,000 ML IV 1,000 ML ONE (13:44)
--- NOTE | 2023-03-19 13:47 | EKG ---
Test Reason : altered mental status Blood Pressure : */* mmHG Vent. Rate : 80 BPM Atrial Rate : 80 BPM P-R Int : 220 ms QRS Dur : 102 ms QT Int : 384 ms P-R-T Axes : 52 -6 24 degrees QTc Int : 442 ms Sinus rhythm with 1st degree AV block Moderate voltage criteria for LVH, may be normal variant ( R in aVL , [place] product ) Cannot rule out Anterior infarct , age undetermined Abnormal ECG When compared with ECG of 10-JAN-2023 13:09, Nonspecific T wave abnormality has replaced inverted T waves in Lateral leads Confirmed by Brandan Rodriguez ([id number]) on 03/20/2023 12:08:09 PM Referred By: Confirmed By: Brandan Rodriguez
[2023-03-19 14:00] LABS: BASOPHILS # (AUTO) 0.1 X10^3/uL (0.0-0.1); BASOPHILS % (AUTO) 0.6 % (0.2-1.0); EOSINOPHILS # (AUTO) 0.1 x10^3/uL (0.0-0.2); LYMPHOCYTES # (AUTO) 1.7 X10^3/uL (1.3-2.9); LYMPHOCYTES % (AUTO) 19.5 % (21.0-51.0); MEAN CORPUSCULAR HEMOGLOBIN 31.1 pg (27.0-34.0); MEAN CORPUSCULAR HGB CONC 33.5 g/dL (33.0-35.0); MEAN CORPUSCULAR VOLUME 92.8 fL (80.0-100.0); MEAN PLATELET VOLUME 6.6 fL (7.4-11.0); MONOCYTES # (AUTO) 0.7 x10^3/uL (0.3-0.8); MONOCYTES % (AUTO) 8.3 % (0.0-13.0); NEUTROPHILS % (AUTO) 70.6 % (42.0-75.0); PLATELET COUNT 305 X10^3/uL (150.0-450.0); RED BLOOD COUNT 3.55 X10^6/uL (3.5-5.4); RED CELL DISTRIBUTION WIDTH 13.2 % (11.6-16.5); WHITE BLOOD COUNT 8.5 X10^3/uL (3.6-10.0)
--- NOTE | 2023-03-19 14:07 | CT ---
HISTORYAMSSTUDYCT brain without IV contrastCOMPARISONCT 01/10/2023TECHNIQUEMultiple axial images of the brain were obtained without IV contrast. Dose reduction techniques including Automated Exposure Control (AEC) and adjustment of mA and kV were utilized.FINDINGSVisualized portions of the paranasal sinuses and mastoid air cells are clear. No calvarial fracture is seen. No acute intracranial hemorrhage or mass effect is seen. The cerebral ventricles are normal in size. No evidence of acute CVA. No change in the punctate calcifications in the basal ganglia, probably idiopathic. Likely mild chronic small vessel ischemic changes are present in the supratentorial white matter, unchanged.IMPRESSIONNo acute intracranial abnormalities are seen.Electronically signed by: Stuart Almeida (Mar 19, 2023 14:06:05)
[2023-03-19 14:24] LABS: ALANINE AMINOTRANSFERASE 25 Units/L (12-78); ALKALINE PHOSPHATASE 140 Units/L (46-116); ASPARTATE AMINO TRANSFERASE 51 Units/L (15-37); BLOOD UREA NITROGEN 29 mg/dL (7-18); CALCIUM 9.1 mg/dL (8.5-10.1); CARBON DIOXIDE 29.9 mmol/L (21-32); CHLORIDE 97 mmol/L (98-107); CREATININE 2.26 mg/dL (0.55-1.02); GLUCOSE 99 mg/dL (65-99); POTASSIUM 4.4 mmol/L (3.5-5.1); SODIUM 134 mmol/L (136-145); TOTAL PROTEIN 7.3 g/dL (6.4-8.2); TSH (3RD GENERATION) 2.682 uIU/mL (0.358-3.74); eGFR NON BLACK RACES 24 (>60)
[2023-03-19 15:50] LABS: BILIRUBIN,URINE NEGATIVE (NEGATIVE); BLOOD/HEMOGLOBIN,URINE NEGATIVE (NEGATIVE); GLUCOSE, URINE NEGATIVE (NEGATIVE); KETONES,URINE NEGATIVE (NEGATIVE); LEUKOCYTE ESTERASE ,URINE NEGATIVE (NEGATIVE); NITRITES,URINE NEGATIVE (NEGATIVE); PROTEIN,URINE NEGATIVE (NEGATIVE); UROBILINOGEN,URINE NORMAL (NORMAL)
[2023-03-19 15:54] LABS: APPEARANCE,URINE CLEAR (CLEAR); COLOR,URINE DARK YELLOW (YELLOW)
[2023-03-19] MEDS ORDERED: NORCO 10/325 TAB PO PRN (17:49)
[2023-03-19] MEDS ORDERED: PITAVASTATIN CALCIUM 1 MG PO SCH (17:49)
[2023-03-19] MEDS ORDERED: XANAX PO PRN (17:54)
[2023-03-19] MEDS ORDERED: CONSULT PHARMACY - POTASSIUM & MAGNESIUM XX SCH (18:00)
--- NOTE | 2023-03-19 18:24 | RAD ---
HISTORYAMS Relevant Clinical InformationSTUDYCHEST, 1 [id number]/01/2023FINDINGSCardiome diastinal silhouette within normal limits. No focal consolidation, pulmonary edema, sizeable pleural effusion, or visible pneumothorax. No acute osseous finding.IMPRESSIONNo acute appearing finding.Electronically signed by: Juarez Kee (Mar 19, 2023 18:20:25)
[2023-03-19] MEDS: D5 1/2 NS 1,000 ML 1,000 ML IV SCH (18:34)
[2023-03-19] MEDS ORDERED: GLUCOPHAGE ONE (19:54)
[2023-03-19] MEDS ORDERED: ELAVIL ONE (19:54)
[2023-03-19] MEDS ORDERED: VASOTEC TAB 20 MG ONE (19:55)
[2023-03-19] MEDS ORDERED: ZANAFLEX ONE (19:55)
[2023-03-19] MEDS ORDERED: NEURONTIN TAB 600 MG ONE (19:55)
[2023-03-19] MEDS: GLUCOPHAGE PO SCH (21:44)
[2023-03-19] MEDS: ELAVIL PO SCH (21:44)
[2023-03-19] MEDS: NEURONTIN TAB 600 MG PO SCH (21:45)
[2023-03-19] MEDS: VASOTEC TAB 20 MG PO SCH (21:45)
[2023-03-19] MEDS: ZANAFLEX PO SCH (21:45)
[2023-03-20 05:05] LABS: BASOPHILS % (AUTO) 0.5 % (0.2-1.0); EOSINOPHILS # (AUTO) 0.1 x10^3/uL (0.0-0.2); EOSINOPHILS % (AUTO) 1.9 % (0.9-2.9); HEMOGLOBIN 10.3 g/dL (12.0-16.0); LYMPHOCYTES # (AUTO) 1.7 X10^3/uL (1.3-2.9); LYMPHOCYTES % (AUTO) 27.9 % (21.0-51.0); MEAN CORPUSCULAR HEMOGLOBIN 31.8 pg (27.0-34.0); MEAN CORPUSCULAR HGB CONC 34.5 g/dL (33.0-35.0); MEAN CORPUSCULAR VOLUME 92.2 fL (80.0-100.0); MEAN PLATELET VOLUME 6.7 fL (7.4-11.0); MONOCYTES # (AUTO) 0.6 x10^3/uL (0.3-0.8); NEUTROPHILS # (AUTO) 3.8 x10^3/uL (2.2-4.8); NEUTROPHILS % (AUTO) 60.7 % (42.0-75.0); PLATELET COUNT 276 X10^3/uL (150.0-450.0); RED BLOOD COUNT 3.26 X10^6/uL (3.5-5.4); WHITE BLOOD COUNT 6.3 X10^3/uL (3.6-10.0)
[2023-03-20 05:18] LABS: ALANINE AMINOTRANSFERASE 20 Units/L (12-78); ALBUMIN 3.4 g/dL (3.4-5.0); ALKALINE PHOSPHATASE 103 Units/L (46-116); ASPARTATE AMINO TRANSFERASE 36 Units/L (15-37); BLOOD UREA NITROGEN 24 mg/dL (7-18); CALCIUM 8.5 mg/dL (8.5-10.1); CARBON DIOXIDE 29.3 mmol/L (21-32); CHLORIDE 102 mmol/L (98-107); CREATININE 1.51 mg/dL (0.55-1.02); GLUCOSE 101 mg/dL (65-99); POTASSIUM 4.5 mmol/L (3.5-5.1); SODIUM 137 mmol/L (136-145); TOTAL PROTEIN 6.6 g/dL (6.4-8.2); eGFR NON BLACK RACES 38 (>60)
[2023-03-20] MEDS: D5 1/2 NS 1,000 ML 1,000 ML IV SCH ×4 (05:26→23:01)
[2023-03-20] MEDS: NEURONTIN TAB 600 MG PO SCH (05:44)
[2023-03-20] MEDS: ZANAFLEX PO SCH ×3 (05:45→21:09)
[2023-03-20] MEDS ORDERED: GLUCOPHAGE ONE ×2 (08:49→19:50)
[2023-03-20] MEDS: VASOTEC TAB 20 MG PO SCH ×2 (09:03→21:09)
[2023-03-20] MEDS: PriLOSEC PO SCH (09:03)
[2023-03-20] MEDS: CELEXA PO SCH (09:03)
[2023-03-20] MEDS: TOPROL XL PO SCH (09:03)
[2023-03-20] MEDS: PLAVIX PO SCH (09:04)
[2023-03-20] MEDS: GLUCOPHAGE PO SCH ×2 (09:04→22:02)
[2023-03-20] MEDS: CALAN SR 240 MG PO SCH (09:05)
[2023-03-20] MEDS ORDERED: COLCRYS TAB 0.6 MG PO PRN (12:15)
--- NOTE | 2023-03-20 12:57 | DR.H&P ---
H&P - History & Physical for Day of: H&P Date: 03/19/23 - Chief Complaint Chief Complaint: SLURRED SPEECH, FALLS, AMS - History of Present Illness History of Present Illness: IS A 57 YEAR OLD PATIENT OF OURS. SHE PRESENTED TO THE ER WITH COMPLAINTS OF SLURRED SPEECH, CONFUSION, AND FALLING TWICE THE NIGHT PRIOR TO ARRIVAL. UPON PRESENTATION TO THE ER, PATIENT WAS NOTED WITH CLEAR SPEECH, BUT WAS A BIT CONFUSED. SHE WAS ORIENTED TO SELF AND MONTH/DAY, BUT STATED THAT THE YEAR IS 1965. PER DAUGHTER, PATIENT WAS RANDOMLY TALKING ABOUT [place] JUST MINUTES BEFORE. PATIENT DENIES HEADACHE, FEVER, URI SYMPTOMS, OR BOWEL/BLADDER COMPLAINTS. SHE WAS ABLE TO AMBULATE IN THE ER WITH STEADY GAIT. SHE HAS A PMH OF CHF, DM II, DYSLIPIDEMIA, GERD, HTN, TN, AND TIAs. SURGICAL HISTORY INCLUDES CHOLECYSTECTOMY AND HYSTERECTOMY. THERE WAS A CHRONIC RIGHT INTERNAL CAPSULAR LACUNAR INFARCT THAT SHOWED UP ON THE MRI IN AUGUST OF 2022. ON ARRIVAL TO THE HOSPITAL, HER VITALS WERE: 98.6-81-18-95%-107/57. LABS WERE OBTAINED. WBC 8.5, RBC 3.55, HGB 11.0, HCT 33.0, PLT COUNT 305, SODIUM 134, POTASSIUM 4.4, CHLORIDE 97, BUN 29, CREATININE 2.26, GLUCOSE 99, CALCIUM 9.1, TOTAL BILI 0.30, AST 51, ALT 25, ALK PHOS 140, TROPONIN 6.4, TOTAL PROTEIN 7.3, ALBUMIN 4.0, TSH 2.682. URINALYSIS WAS OBTAINED AND WAS UNREMARKABLE. URINE DRUG SCREEN WAS POSITIVE FOR OPIATES AND BENZODIAZEPINES. SHE DOES CURRENTLY TAKE NORCO AND ALPRAZOLAM AT HOME. A BRAIN CT WAS OBTAINED AND REVEALED: Visualized portions of the paranasal sinuses and mastoid air cells are clear. No calvarial fracture is seen. No acute intracranial hemorrhage or mass effect is seen. The cerebral ventricles are normal in size. No evidence of acute CVA. No change in the punctate calcifications in the basal ganglia, probably idiopathic. Likely mild chronic small vessel ischemic changes are present in the supratentorial white matter, unchanged. A CHEST XRAY WAS OBTAINED AND REVEALED: Cardiomediastinal silhouette within normal limits. No focal consolidation, pulmonary edema, sizeable pleural effusion, or visible pneumothorax. No acute osseous finding. IN THE ER, SHE WAS GIVEN A NORMAL SALINE BOLUS. SHE WAS ADMITTED TO THE HOSPITAL OBSERVATION STATUS FOR FURTHER EVALUATION AND TREATMENT OF ACUTE RENAL INJURY, ALTERED MENTAL STATUS, RULE OUT CVA. SHE WAS STARTED ON D51/2 NS BRYCE 125 ML/HR. WE WILL RESUME HER HOME MEDICATIONS OF XANAX, ELAVIL, CELEXA, PLAVIX, COLCRYS, VASOTEC, NEURONTIN, LIVALO, NORCO, GLUCOPHAGE, TOPROL, PRILOSEC, PROTONIX, ZANAFLEX, AND VERAPAMIL. WE WILL OBTAIN A BRAIN MRI WITH CONTRAST TO RULE OUT ACUTE CVA. OTHERWISE, WE WILL FOLLOW UP WITH AM LABS AND CONTINUE TO MONITOR. TIME SPENT ON CLINICAL ASSESSMENT, REVIEWING LABS AND IMAGING, DECISION MAKING, AND DOCUMENTATION GREATER THAN 75 MINUTES. - Past Medical History Past Medical History: TN, Hypertension, Dyslipidemia, Diabetes, GERD, CHF Additional Medical History: TIA - Past Surgical History Surgical History: Cholecystectomy, Hysterectomy, Ortho Surgery - Family History Family Medical History: Diabetes Mellitus, Cancer, TN, Hypertension - Social History Does patient currently use any type of tobacco product: No Have you used tobacco products in the last 12 months: No Type of Tobacco Use: None Does any household member use tobacco: No Alcohol Use: None Drug Use: None - Review of Systems Constitutional: Weakness. denies: Fever Eyes: No Symptoms Reported ENT: No Symptoms Reported Respiratory: No Symptoms Reported Cardiovascular: No Symptoms Reported Gastrointestinal: No Symptoms Reported Genitourinary: No Symptoms Reported Musculoskeletal: No Symptoms Reported Skin: No Symptoms Reported Neurological: Change in Speech, Confusion - Physical Exam Vital Signs: Vital Signs Temperature 97.6 F Pulse Rate 90 Pulse Rate 92 Pulse Rate 93 Pulse Rate 94 Pulse Rate 85 Pulse Rate 85 Pulse Rate 86 Pulse Rate 84 Pulse Rate 84 Pulse Rate 84 Pulse Rate 87 Pulse Rate 96 Pulse Rate 95 Pulse Rate 96 Pulse Rate 94 Pulse Rate 93 Pulse Rate 96 Pulse Rate 96 Pulse Rate 96 Pulse Rate 96 Pulse Rate 95 Pulse Rate 94 Respiratory Rate 13 Respiratory Rate 38 Respiratory Rate 42 Respiratory Rate 15 Respiratory Rate 22 Respiratory Rate 22 Respiratory Rate 15 Respiratory Rate 15 Respiratory Rate 15 Respiratory Rate 16 Respiratory Rate 19 Respiratory Rate 16 Respiratory Rate 11 Respiratory Rate 18 Respiratory Rate 11 Respiratory Rate 16 Respiratory Rate 10 Respiratory Rate 18 Respiratory Rate 15 Respiratory Rate 12 Blood Pressure 141/61 Blood Pressure 131/58 Blood Pressure 125/60 Blood Pressure 143/66 Blood Pressure 143/66 Blood Pressure 143/73 Blood Pressure 142/81 Blood Pressure 136/97 Blood Pressure 143/73 O2 Sat by Pulse Oximetry 95 O2 Sat by Pulse Oximetry 94 O2 Sat by Pulse Oximetry 94 O2 Sat by Pulse Oximetry 94 O2 Sat by Pulse Oximetry 95 O2 Sat by Pulse Oximetry 94 O2 Sat by Pulse Oximetry 89 O2 Sat by Pulse Oximetry 96 O2 Sat by Pulse Oximetry 96 O2 Sat by Pulse Oximetry 95 O2 Sat by Pulse Oximetry 97 O2 Sat by Pulse Oximetry 96 O2 Sat by Pulse Oximetry 96 O2 Sat by Pulse Oximetry 96 O2 Sat by Pulse Oximetry 97 O2 Sat by Pulse Oximetry 97 O2 Sat by Pulse Oximetry 100 O2 Sat by Pulse Oximetry 100 O2 Sat by Pulse Oximetry 97 O2 Sat by Pulse Oximetry 98 O2 Sat by Pulse Oximetry 96 O2 Sat by Pulse Oximetry 96 Oriented: Normal Eyes: Normal Ear: Normal Nose: Normal Throat: Normal Respiratory: Clear Throughout Cardiovascular: Normal : Normal Auscultation: Bowel Sounds: Normal Palpation: Normal Tenderness: Normal Skin: Normal Musculoskeletal: Normal Psychiatric: Normal Mood Description: Calm Affect: Normal Speech Pattern: Clear - Assessment/Plan (1) Acute kidney injury Status: Acute Plan: ADMIT, D/ NS AT 125 ML/HR (2) Altered mental status Qualifiers: Altered mental status type: transient alteration of awareness Qualified Code(s): R40.4 - Transient alteration of awareness Status: Acute Plan: OBTAIN BRAIN MRI WITHOUT CONTRAST TO RULE OUT CVA (3) Frequent falls Status: Acute (4) Essential hypertension Status: Chronic Plan: CONTINUE CLONIDINE, VASOTEC, TOPROL, AND VERAPAMIL (5) Hyperlipidemia Status: Acute Plan: CONTINUE LIVALO (6) Generalized anxiety disorder Status: Acute Plan: CONTINUE XANAX (7) Gastroesophageal reflux disease Status: Chronic Plan: CONTINUE PROTONIX AND PRILOSEC (8) Gouty arthropathy Status: Acute Plan: CONTINUE COLCRYS PRN, CONTINUE NORCO (9) Diabetes mellitus Qualifiers: Diabetes mellitus type: type 2 Diabetes mellitus correction insulin use: unspecified correction insulin use status Diabetes mellitus complication status: without complication Qualified Code(s): E11.9 - Type 2 diabetes mellitus without complications Status: Chronic Plan: CONTINUE GLUCOPHAGE - Allergies Allergies/Adverse Reactions: Allergies Allergy/AdvReac Type Severity Reaction Status Date / Time No Known Drug Allergies Allergy Verified 03/19/23 13:13 - Medications Home Medications: Home Medications Medication Instructions Recorded Confirmed alprazolam 0.5 mg tablet 0.5 mg PO BID PRN 03/19/23 03/19/23 amitriptyline 10 mg tablet 10 mg PO HS 03/19/23 03/19/23 citalopram 40 mg tablet 40 mg PO QDAY 03/19/23 03/19/23 clonidine HCl 0.1 mg tablet 0.1 mg PO PRN PRN 03/19/23 03/19/23 clopidogrel 75 mg tablet 75 mg PO QDAY 03/19/23 03/19/23 colchicine 0.6 mg tablet 0.6 mg PO BID PRN 03/19/23 03/19/23 enalapril maleate 20 mg tablet 20 mg PO BID 03/19/23 03/19/23 furosemide 40 mg tablet (Lasix) 40 mg PO PRN PRN 03/19/23 03/19/23 gabapentin 600 mg tablet 600 mg PO TID 03/19/23 03/19/23 hydrocodone 10 mg-acetaminophen 1 tab PO TID PRN 03/19/23 03/19/23 325 mg tablet meclizine 25 mg tablet 25 mg PO TID 03/19/23 03/19/23 metformin 500 mg tablet 500 mg PO BID 03/19/23 03/19/23 metoprolol succinate 50 mg 50 mg PO DAILY 03/19/23 03/19/23 tablet,extended release 24 hr omeprazole 20 mg capsule,delayed 20 mg PO DAILY 03/19/23 03/19/23 release pantoprazole 40 mg tablet,delayed 40 mg PO QDAY 03/19/23 03/19/23 release pitavastatin calcium 1 mg tablet 1 mg PO DIRECTED 03/19/23 03/19/23 (Livalo) promethazine 25 mg tablet 25 mg PO Q8H PRN 03/19/23 03/19/23 tizanidine 4 mg tablet 4 mg PO TID 03/19/23 03/19/23 verapamil 240 mg tablet,extended 240 mg PO QDAY 03/19/23 03/19/23 release
[2023-03-20] MEDS: NEURONTIN CAP 300 MG PO SCH ×2 (14:27→21:09)
--- NOTE | 2023-03-20 19:44 | MRI ---
HISTORYAMS, WEAKNESS, R/O CVASTUDYBRAIN W/O [id number]/30/2023TECHNIQUEMultipla sis multi-sequence MRI of the brain was obtained utilizing standard departmental protocol. Sagittal and axial T1 weighted images were obtained. Axial T2 and flair weighted images were performed as well. Axial diffusion weighted and ADC trace mapping was performed.FINDINGSThere is mild image degradation on several pulse sequences due to patient motion.The midline structures appear unremarkable. Mild cortical atrophy compatible with patient's age. There is a chronic right posterior limb internal capsule lacunar infarct. The evaluation of the brain parenchyma demonstrates no abnormal signal characteristics to suggest intraparenchymal mass or hemorrhage. Scattered foci of signal hyperintensity within the periventricular and subcortical white matter on inversion recovery and T2 weighted sequences. No extra-axial fluid collections are observed. The ventricular system appears symmetric and nondilated. The CP angle is normal in its appearance without brainstem mass or evidence for acoustic neuroma. The flow voids on both T1 and T2 weighted imaging appear unremarkable. Evaluation of the diffusion weighted imaging does not demonstrate abnormal signal characteristics to suggest acute ischemic change. The extracranial structures are unremarkable.IMPRESSIONMild cortical atrophy with mild microvascular ischemic white matter changes.Chronic right internal capsule lacunar infarct.No acute intracranial pathologyElectronically signed by: Yonas Pompa (Mar 20, 2023 19:43:02)
[2023-03-20] MEDS ORDERED: PITAVASTATIN CALCIUM 1 MG PO SCH (21:00)
[2023-03-20] MEDS: ELAVIL PO SCH (21:11)
[2023-03-21] MEDS: ZANAFLEX PO SCH (05:06)
[2023-03-21] MEDS: NEURONTIN CAP 300 MG PO SCH (05:07)
[2023-03-21] MEDS: D5 1/2 NS 1,000 ML 1,000 ML IV SCH ×2 (05:07→10:08)
[2023-03-21 05:34] LABS: BASOPHILS % (AUTO) 0.5 % (0.2-1.0); EOSINOPHILS # (AUTO) 0.1 x10^3/uL (0.0-0.2); EOSINOPHILS % (AUTO) 1.9 % (0.9-2.9); HEMATOCRIT 29.8 % (36.0-47.0); HEMOGLOBIN 10.4 g/dL (12.0-16.0); LYMPHOCYTES # (AUTO) 2.2 X10^3/uL (1.3-2.9); LYMPHOCYTES % (AUTO) 31.7 % (21.0-51.0); MEAN CORPUSCULAR HEMOGLOBIN 31.9 pg (27.0-34.0); MEAN CORPUSCULAR HGB CONC 34.9 g/dL (33.0-35.0); MEAN CORPUSCULAR VOLUME 91.4 fL (80.0-100.0); MEAN PLATELET VOLUME 6.7 fL (7.4-11.0); MONOCYTES # (AUTO) 0.5 x10^3/uL (0.3-0.8); MONOCYTES % (AUTO) 7.4 % (0.0-13.0); NEUTROPHILS % (AUTO) 58.5 % (42.0-75.0); PLATELET COUNT 287 X10^3/uL (150.0-450.0); RED BLOOD COUNT 3.26 X10^6/uL (3.5-5.4); RED CELL DISTRIBUTION WIDTH 12.9 % (11.6-16.5); WHITE BLOOD COUNT 6.9 X10^3/uL (3.6-10.0)
[2023-03-21 05:43] LABS: ALANINE AMINOTRANSFERASE 17 Units/L (12-78); ALBUMIN 3.3 g/dL (3.4-5.0); ALKALINE PHOSPHATASE 80 Units/L (46-116); ASPARTATE AMINO TRANSFERASE 26 Units/L (15-37); BLOOD UREA NITROGEN 14 mg/dL (7-18); CALCIUM 8.5 mg/dL (8.5-10.1); CARBON DIOXIDE 32.3 mmol/L (21-32); CHLORIDE 102 mmol/L (98-107); COR CA(FOR HYPOALB) 9.1 mg/dL (8.5-10.1); CREATININE 1.11 mg/dL (0.55-1.02); GLUCOSE 104 mg/dL (65-99); POTASSIUM 3.8 mmol/L (3.5-5.1); SODIUM 138 mmol/L (136-145); TOTAL PROTEIN 6.5 g/dL (6.4-8.2); eGFR NON BLACK RACES 54 (>60)
[2023-03-21] MEDS ORDERED: CONSULT PHARMACY - POTASSIUM & MAGNESIUM XX SCH (07:00)
[2023-03-21] MEDS ORDERED: GLUCOPHAGE ONE (08:29)
[2023-03-21] MEDS ORDERED: K-DUR TAB 20 MEQ PO SCH (09:00)
[2023-03-21] MEDS ORDERED: PROTONIX TAB 40 MG PO SCH (09:00)
[2023-03-21 09:01] VITALS: BP 140/69; PULSE 79; RESP 20; TEMP 97.2; O2SAT 97
[2023-03-21] MEDS: GLUCOPHAGE PO SCH (09:34)
[2023-03-21] MEDS: CELEXA PO SCH (09:34)
[2023-03-21] MEDS: CALAN SR 240 MG PO SCH (09:35)
[2023-03-21] MEDS: TOPROL XL PO SCH (09:36)
[2023-03-21] MEDS: PLAVIX PO SCH (09:36)
[2023-03-21] MEDS: VASOTEC TAB 20 MG PO SCH (09:36)
[2023-03-21] MEDS: PriLOSEC PO SCH (09:36)
== END 2023-03-21 11:10 | disposition home or self-care (01) ==
LOC: ICU 13:00 → ER 13:00 → ICU 17:44
PROVIDERS: ADMIT Family Medicine; ATTEND Internal Medicine
DX: E78.2 Mixed hyperlipidemia; I10 Essential (primary) hypertension; R29.6 Repeated falls; F11.90 Opioid use, unspecified, uncomplicated; R53.1 Weakness; E87.1 Hypo-osmolality and hyponatremia; M10.9 Gout, unspecified; F41.8 Other specified anxiety disorders; Z79.01 Long term (current) use of anticoagulants; F19.90 Other psychoactive substance use, unspecified, uncomplicated; R47.81 Slurred speech; Z86.73 Personal history of transient ischemic attack (TIA), and cerebral infarction without residual deficits; N17.8 Other acute kidney failure; R94.31 Abnormal electrocardiogram [ECG] [EKG]; R40.4 Transient alteration of awareness; E11.65 Type 2 diabetes mellitus with hyperglycemia; K21.9 Gastro-esophageal reflux disease without esophagitis

== ENCOUNTER 2023-07-04 11:22 | Observation (INO) ==
--- NOTE | 2023-07-04 11:50 | DR.GENAD ---
HPI Time Seen Time Seen by Provider: 07/04/23 11:50 PCP Primary Care Physician: TEOFILO Complaint/Symptoms Chief Complaint Doctors Comments: 57-year-old female presents for evaluation. Patient feeling a bit off mentally this a.m. trying to cook for Thanksgiving, making mistakes, touched a hot pot. Has had a diffuse headache since yesterday, sharp, does not radiate. Nothing makes better, nothing makes it worse. Feels her left arm may be a bit weak this a.m.. No reported fever, chills, visual changes, upper respiratory symptoms, cough, shortness of breath, chest pain, nausea, vomiting, bowel or bladder issues. History of TIAs in the past. Chief Complaint:: DAUGHTER STATES THAT SHE WAS COOKING THIS MORNING AND SHE WAS MIXING THE DEVILED EGGS WITH THE PUDDING, SHE ALSO WAS TOUCHING A HOT POT. SHE IS CONFUSED WELL. HER DAUGHTER STATES SHE IS NOT ACTING RIGHT. COVID-19 Coronavirus risk:travel/contact w/high risk person: No Has patient experienced Coronavirus symptoms: No Nurses notes reviewed Nurses Notes Review: Yes Source History Provided: Family Member Mode of Arrival Mode of Arrival: Ambulatory Timing Onset of Chief Complaint: 07/04/23 PMH PMH Past Medical History: Yes Past Medical History: Anxiety, CHF, Coronary Artery Disease, Depression, Diabetes, Dyslipidemia, GERD, Gout, Hypertension, MT and Renal Disease Past Surgical History: Yes Surgical History: Cholecystectomy, Hysterectomy and Ortho Surgery Family History History of Family Medical Conditions: Yes Family Medical History: Diabetes Mellitus, Cancer, MT, Coronary Artery Disease and Hypertension Social History Does patient currently use any type of tobacco product: No Does any household member use tobacco: No Alcohol Use: None Do you use any recreational Drugs:: No Lives With: Family Lives Where: Home Travel Risk Coronavirus risk:travel/contact w/high risk person: No Has patient experienced Coronavirus symptoms: No Infectious screening In the last 2 months have you had wt loss of >10#?: NO Have you had fever, night sweats or hemotysis?: No Have you traveled outside the country in the last 6 months?: No Isolation: Standard ROS Review of Systems Constitutional: Weakness Eyes: No Symptoms Reported ENTM: No Symptoms Reported Respiratoy: No Symptoms Reported Cardiovascular: No Symptoms Reported Gastrointestinal/Abdominal: No Symptoms Reported Genitourinary: No Symptoms Reported Neurological: Headache and Weakness Musculoskeletal: No Symptoms Reported Integumentary: No Symptoms Reported Hematologic/Lymphatic: No Symptoms Reported All Other Systems: Reviewed and Negative PE Vital Signs Vitals: Vital Signs Temperature 98.1 F Pulse Rate 87 Respiratory Rate 20 Blood Pressure 127/63 O2 Sat by Pulse Oximetry 100 General General Appearance: Alert and In No Apparent Distress Eyes Eye exam: PERRL and EOMI ENT ENT Exam: Normal Oropharynx and Mucous Membranes Moist Neck Neck Exam: Normal Inspection and Other (No bruits) Respiratory Respiratory Exam: Normal Lung Sounds Bilat; negative Accessory Muscle Use or Respiratory Distress Cardiovascular Cardiovascular Exam: Regular Rate, Normal Rhythm and Normal Heart Sounds Abdominal Exam Abdominal Exam: Normal Bowel Sounds and Soft; negative Tenderness Extremities Extremities Exam: Normal Inspection and Full ROM; negative Edema Neurologic Neurological Exam: Alert, Oriented X3 and CN II-XII Intact; negative Motor Sensory Deficit Skin Skin Exam: Warm and Dry Other Exam Other Exam: Neurological exam without ulnar drift, has normal [id number] bilaterally COURSE Treatment Treatment: 57-year-old female presents with a bit of altered mental status, weakness. Neurological exam intact. W/u initiated. Pt given IV fluids. 1350 - workup shows normal chest x-ray, normal head CT. Labs show normal CBC, CMP acceptable except for her chronic renal insufficiency, creatinine currently 2.17, with an EGFR of only 25. Total CK level done, is greater than 1000. Patient has a history of rhabdomyolysis in the past with unknown etiology, with a level last year greater than 10,000, level this past summer greater than 3000. She had a normal CK level 8 days ago. Has had some frequent falling, but no significant muscular injury. Worrisome because patient has chronic renal insufficiency with elevated CK level. Patient given second liter of IV fluids. Recommend admission for continued IV hydration. Patient with a history of CHF in the past, may need IV diuretic therapy with her IV fluids. Patient presented to the covering on-call physician, Dr. Peres, she accepts the admission. ROR Labs Reviewed Laboratory Results Reviewed?: Yes 07/04/23 12:17 07/04/23 12:17 Laboratory: WBC 10.4 X10^3/uL (3.6-10.0) H 07/04/23 12:17 RBC 3.77 X10^6/uL (3.5-5.4) 07/04/23 12:17 Hgb 11.9 g/dL (12.0-16.0) L 07/04/23 12:17 Hct 35.6 % (36.0-47.0) L 07/04/23 12:17 MCV 94.3 fL (80.0-100.0) 07/04/23 12:17 MCH 31.5 pg (27.0-34.0) 07/04/23 12:17 MCHC 33.4 g/dL (33.0-35.0) 07/04/23 12:17 RDW 13.3 % (11.6-16.5) 07/04/23 12:17 Plt Count 259 X10^3/uL (150.0-450.0) 07/04/23 12:17 MPV 7.3 fL (7.4-11.0) L 07/04/23 12:17 Neut % (Auto) 71.4 % (42.0-75.0) 07/04/23 12:17 Lymph % (Auto) 20.4 % (21.0-51.0) L 07/04/23 12:17 [place] % (Auto) 5.4 % (0.0-13.0) 07/04/23 12:17 Eos % (Auto) 0.7 % (0.9-2.9) L 07/04/23 12:17 Baso % (Auto) 2.1 % (0.2-1.0) H 07/04/23 12:17 Neut # (Auto) 7.5 x10^3/uL (2.2-4.8) H 07/04/23 12:17 Lymph # (Auto) 2.1 X10^3/uL (1.3-2.9) 07/04/23 12:17 [place] # (Auto) 0.6 x10^3/uL (0.3-0.8) 07/04/23 12:17 Eos # (Auto) 0.1 x10^3/uL (0.0-0.2) 07/04/23 12:17 Baso # (Auto) 0.2 X10^3/uL (0.0-0.1) H 07/04/23 12:17 Absolute Nucleated RBC 0.0 /100WBC 07/04/23 12:17 Sodium 143 mmol/L (136-145) 07/04/23 12:17 Corrected Sodium 144 mmol/L (136-145) 07/04/23 12:17 Potassium 4.6 mmol/L (3.5-5.1) 07/04/23 12:17 Chloride 103 mmol/L (98-107) 07/04/23 12:17 Carbon Dioxide 30.6 mmol/L (21-32) 07/04/23 12:17 BUN 28 mg/dL (7-18) H 07/04/23 12:17 Creatinine 2.17 mg/dL (0.55-1.02) H 07/04/23 12:17 Est GFR (MDRD) Af Amer 30 (>60) L 07/04/23 12:17 Est GFR (MDRD) Non-Af 25 (>60) L 07/04/23 12:17 Glucose 130 mg/dL (65-99) H 07/04/23 12:17 Calcium 9.6 mg/dL (8.5-10.1) 07/04/23 12:17 Corrected Calcium TNP 07/04/23 12:17 Total Bilirubin 0.30 mg/dL (0.2-1.0) 07/04/23 12:17 AST 55 Units/L (15-37) H 07/04/23 12:17 ALT 26 Units/L (12-78) 07/04/23 12:17 Alkaline Phosphatase 60 Units/L (46-116) 07/04/23 12:17 Creatine Kinase > 1000 Units/L (26-192) H 07/04/23 12:17 Troponin I High Sens 5.7 ng/L (4.0-60.0) 07/04/23 12:17 Total Protein 8.2 g/dL (6.4-8.2) 07/04/23 12:17 Albumin 4.5 g/dL (3.4-5.0) 07/04/23 12:17 Globulin 3.7 g/dL (2.5-4.5) 07/04/23 12:17 Albumin/Globulin Ratio 1.2 Ratio (1.1-2.1) 07/04/23 12:17 Lipase 30 Units/L (16-77) 07/04/23 12:17 XRAY XRAY Interpreted by: Both X-ray Results: EXAM: BRAIN W/O CON HISTORY: AMS; altered mental status. COMPARISON: Numerous priors TECHNIQUE: Multiple helical images of the brain from the vertex to the occiput were obtained. Coronal and sagittal reformats were performed. Dose reduction techniques including Automated Exposure Control (AEC) and adjustment of mA and kV were utilized. FINDINGS: Chronic appearing periventricular white matter microvascular disease is seen. No acute intraparenchymal hemorrhage or cytotoxic edema is identified. No extra-axial fluid collections are seen. No alteration in the attenuation of the brain parenchyma can be identified to suggest acute or subacute ischemic change. However, if the patients symptoms are clinically & neurologically concerning for an acute ischemic event, then MR imaging of the brain with DWI sequencing could be considered to exclude an acute CVA (based on this patient's clinical presentation and the specific medical circumstances). Also, if there remains strong concern for an intracranial neoplasm or mass, then follow-up with CT or MR imaging of the brain with IV contrast is recommended for improved inspection (which would be more sensitive for the assessment of any intracranial neoplasia). The ventricular system is symmetric and nondilated. The extracrania l structures are grossly unremarkable. The visualized paranasal sinuses and mastoid air cells are relatively clear. IMPRESSION: Stable head CT exam. No acute intracranial hemorrhage observed. If there remains strong clinical concern for an acute CVA/ischemic event in this setting, then follow-up brain MRI with diffusion-weighted sequencing should be considered to definitively exclude acute cerebral ischemia, based on medical history and neurological assessment. THIS IS AN ELECTRONICALLY VERIFIED FINAL REPORT 07/04/2023 12:11 PM - Electronically signed by Reji Arzate Opioid Opioid Risk Tool Age (Hans box if 16-45): No History of Preadolescent Sexual Abuse: No Total: 0 Total Score Risk Category: Low Risk Copyright: Jose GR predicting aberrant behaviors Discharge Plan Diagnosis Discharge Problem: Rhabdomyolysis, Chronic renal insufficiency Discharge Plan Patient Disposition: 09 ADMITTED INPATIENT Condition: Stable Prescriptions: No Action gabapentin 600 mg tablet 600 mg PO TID citalopram 40 mg tablet 40 mg PO QDAY alprazolam 0.5 mg tablet 0.5 mg PO PRN PRN meclizine 25 mg tablet 50 mg PO BID fenofibrate nanocrystallized 145 mg tablet 145 mg PO QDAY Farxiga 10 mg tablet 10 mg PO QDAY Xarelto 2.5 mg tablet 2.5 mg PO DAILY metformin 500 mg tablet 500 mg PO BID clonidine HCl 0.1 mg tablet 0.1 mg PO QDAY metoprolol tartrate 100 mg tablet 100 mg PO BID tizanidine 4 mg tablet 4 mg PO TID levetiracetam 500 mg tablet 500 mg PO BID enalapril maleate 20 mg tablet 20 mg PO BID amitriptyline 10 mg tablet 10 mg PO DAILY pantoprazole 40 mg tablet,delayed release (DR/EC) 40 mg PO QDAY omeprazole 20 mg capsule,delayed release(DR/EC) 20 mg PO BID verapamil 240 mg tablet extended release 240 mg PO QDAY allopurinol 300 mg tablet 300 mg PO QDAY Health Concerns: Post Hospitalization: new medications and changes needed to prevent readmission or further decline. Pt educated and given instructions on all concerns. Plan of Treatment: Continue with present treatment and follow up plan. Pt is to keep follow up appointment as instructed and take medications as ordered. Orders to Discharge Patient Discharge Orders: Transfer (Routine); Ordered 07/04/23 Ordered By: Papa Colon Follow ups/Referrals Follow ups/Referrals: Santana Valle [Primary Care Provider] - 3 days
[2023-07-04] MEDS ORDERED: NS 1,000 ML IV 1,000 ML IV ONE ×2 (11:58→13:25)
[2023-07-04] MEDS ORDERED: NS 1,000 ML IV 1,000 ML ONE ×3 (12:09→16:41)
--- NOTE | 2023-07-04 12:15 | CT ---
EXAM:BRAIN W/O CONHISTORY:AMS; altered mental status.COMPARISON:Numerous priorsTECHNIQUE:Multiple helical images of the brain from the vertex to the occiput were obtained. Coronal and sagittal reformats were performed.Dose reduction techniques including Automated Exposure Control (AEC) and adjustment of mA and kV were utilized.FINDINGS:Chronic appearing periventricular white matter microvascular disease is seen. No acute intraparenchymal hemorrhage or cytotoxic edema is identified. No extra-axial fluid collections are seen. No alteration in the attenuation of the brain parenchyma can be identified to suggest acute or subacute ischemic change. However, if the patients symptoms are clinically & neurologically concerning for an acute ischemic event, then MR imaging of the brain with DWI sequencing could be considered to exclude an acute CVA (based on this patient's clinical presentation and the specific medical circumstances). Also, if there remains strong concern for an intracranial neoplasm or mass, then follow-up with CT or MR imaging of the brain with IV contrast is recommended for improved inspection (which would be more sensitive for the assessment of any intracranial neoplasia). The ventricular system is symmetric and nondilated. The extracranial structures are grossly unremarkable. The visualized paranasal sinuses and mastoid air cells are relatively clear.IMPRESSION:Stable head CT exam. No acute intracranial hemorrhage observed. If there remains strong clinical concern for an acute CVA/ischemic event in this setting, then follow-up brain MRI with diffusion-weighted sequencing should be considered to definitively exclude acute cerebral ischemia, based on medical history and neurological assessment.THIS IS AN ELECTRONICALLY VERIFIED FINAL [id number]/2023 12:11 PM - Electronically signed by Reji Arzate
--- NOTE | 2023-07-04 12:18 | RAD ---
EXAM:CHEST, 1 VIEWHISTORY:Altered mental statusCOMPARISON:06/28/2023FINDINGS:The trachea is midline. The cardiac silhouette is enlarged with a tortuous thoracic aorta . The lungs are clear without focal infiltrate or effusion. The bony thorax is unremarkable.IMPRESSION:No acute cardiopulmonary disease.THIS IS AN ELECTRONICALLY VERIFIED FINAL [id number]/04/2023 12:15 PM - Electronically signed by Pipe Carpio MD
[2023-07-04 12:24] LABS: BASOPHILS # (AUTO) 0.2 X10^3/uL (0.0-0.1); BASOPHILS % (AUTO) 2.1 % (0.2-1.0); EOSINOPHILS # (AUTO) 0.1 x10^3/uL (0.0-0.2); EOSINOPHILS % (AUTO) 0.7 % (0.9-2.9); HEMATOCRIT 35.6 % (36.0-47.0); HEMOGLOBIN 11.9 g/dL (12.0-16.0); LYMPHOCYTES # (AUTO) 2.1 X10^3/uL (1.3-2.9); LYMPHOCYTES % (AUTO) 20.4 % (21.0-51.0); MEAN CORPUSCULAR HEMOGLOBIN 31.5 pg (27.0-34.0); MEAN CORPUSCULAR HGB CONC 33.4 g/dL (33.0-35.0); MEAN CORPUSCULAR VOLUME 94.3 fL (80.0-100.0); MEAN PLATELET VOLUME 7.3 fL (7.4-11.0); MONOCYTES # (AUTO) 0.6 x10^3/uL (0.3-0.8); MONOCYTES % (AUTO) 5.4 % (0.0-13.0); NEUTROPHILS # (AUTO) 7.5 x10^3/uL (2.2-4.8); NEUTROPHILS % (AUTO) 71.4 % (42.0-75.0); PLATELET COUNT 259 X10^3/uL (150.0-450.0); RED BLOOD COUNT 3.77 X10^6/uL (3.5-5.4); RED CELL DISTRIBUTION WIDTH 13.3 % (11.6-16.5); WHITE BLOOD COUNT 10.4 X10^3/uL (3.6-10.0)
[2023-07-04 12:52] LABS: ALANINE AMINOTRANSFERASE 26 Units/L (12-78); ALBUMIN 4.5 g/dL (3.4-5.0); ALKALINE PHOSPHATASE 60 Units/L (46-116); ASPARTATE AMINO TRANSFERASE 55 Units/L (15-37); BLOOD UREA NITROGEN 28 mg/dL (7-18); CALCIUM 9.6 mg/dL (8.5-10.1); CARBON DIOXIDE 30.6 mmol/L (21-32); CHLORIDE 103 mmol/L (98-107); COR NA(FOR HYPERGLY) 144 mmol/L (136-145); CREATININE 2.17 mg/dL (0.55-1.02); GLUCOSE 130 mg/dL (65-99); LIPASE 30 Units/L (16-77); POTASSIUM 4.6 mmol/L (3.5-5.1); SODIUM 143 mmol/L (136-145); TOTAL PROTEIN 8.2 g/dL (6.4-8.2); eGFR NON BLACK RACES 25 (>60)
[2023-07-04 13:04] LABS: CREATINE KINASE > 1000 Units/L (26-192)
[2023-07-04 16:33] LABS: BILIRUBIN,URINE NEGATIVE (NEGATIVE); BLOOD/HEMOGLOBIN,URINE 2+ (NEGATIVE); GLUCOSE, URINE 4+ (NEGATIVE); KETONES,URINE NEGATIVE (NEGATIVE); LEUKOCYTE ESTERASE ,URINE NEGATIVE (NEGATIVE); NITRITES,URINE NEGATIVE (NEGATIVE); PROTEIN,URINE 1+ (NEGATIVE); UROBILINOGEN,URINE NORMAL (NORMAL)
[2023-07-04 16:43] LABS: APPEARANCE,URINE CLEAR (CLEAR); BACTERIA,URINE NEGATIVE /HPF (NEGATIVE); COLOR,URINE YELLOW (YELLOW); RBC,URINE 0-2 /HPF (0-3); SQUAMOUS EPITHELIAL CELL,UR RARE /HPF (NEGATIVE)
[2023-07-04] MEDS ORDERED: FLUARIX QUAD VACC (FOR AGE 6 MONTHS+) IM ONE (16:45)
[2023-07-04] MEDS: NS 1,000 ML IV 1,000 ML IV SCH (18:00)
[2023-07-04] MEDS ORDERED: NovoLIN R (or HumuLIN R) SUBCUT PRN (18:06)
[2023-07-04] MEDS: KEPPRA TAB 500 MG PO SCH (20:41)
[2023-07-04] MEDS: ZANAFLEX PO SCH (21:49)
[2023-07-04] MEDS: XANAX PO PRN (21:49)
[2023-07-04] MEDS: NEURONTIN TAB 600 MG PO SCH (21:49)
[2023-07-04] MEDS: SNACK - Diabetic Appropriate PO SCH (22:00)
[2023-07-04] MEDS: GLUCOPHAGE PO SCH (22:00)
[2023-07-04] MEDS: LOPRESSOR TAB 50 MG PO SCH (22:01)
[2023-07-04] MEDS: VASOTEC TAB 20 MG PO SCH (22:01)
[2023-07-05] MEDS: NS 1,000 ML IV 1,000 ML IV SCH ×5 (00:58→22:44)
[2023-07-05 05:15] LABS: BASOPHILS % (AUTO) 0.7 % (0.2-1.0); EOSINOPHILS # (AUTO) 0.2 x10^3/uL (0.0-0.2); EOSINOPHILS % (AUTO) 2.6 % (0.9-2.9); HEMATOCRIT 30.1 % (36.0-47.0); HEMOGLOBIN 10.2 g/dL (12.0-16.0); LYMPHOCYTES # (AUTO) 2.5 X10^3/uL (1.3-2.9); LYMPHOCYTES % (AUTO) 42.1 % (21.0-51.0); MEAN CORPUSCULAR HEMOGLOBIN 31.6 pg (27.0-34.0); MEAN CORPUSCULAR HGB CONC 33.7 g/dL (33.0-35.0); MEAN CORPUSCULAR VOLUME 93.8 fL (80.0-100.0); MEAN PLATELET VOLUME 7.2 fL (7.4-11.0); MONOCYTES # (AUTO) 0.4 x10^3/uL (0.3-0.8); MONOCYTES % (AUTO) 6.1 % (0.0-13.0); NEUTROPHILS # (AUTO) 2.9 x10^3/uL (2.2-4.8); NEUTROPHILS % (AUTO) 48.5 % (42.0-75.0); PLATELET COUNT 203 X10^3/uL (150.0-450.0); RED BLOOD COUNT 3.21 X10^6/uL (3.5-5.4); RED CELL DISTRIBUTION WIDTH 13.1 % (11.6-16.5)
[2023-07-05] MEDS: NEURONTIN TAB 600 MG PO SCH (05:26)
[2023-07-05] MEDS: ZANAFLEX PO SCH ×3 (05:26→21:05)
[2023-07-05 05:31] LABS: ALANINE AMINOTRANSFERASE 19 Units/L (12-78); ALBUMIN 3.4 g/dL (3.4-5.0); ALKALINE PHOSPHATASE 48 Units/L (46-116); ASPARTATE AMINO TRANSFERASE 39 Units/L (15-37); BLOOD UREA NITROGEN 24 mg/dL (7-18); CALCIUM 8.7 mg/dL (8.5-10.1); CARBON DIOXIDE 30.1 mmol/L (21-32); CHLORIDE 106 mmol/L (98-107); COR NA(FOR HYPERGLY) 143 mmol/L (136-145); CREATINE KINASE 957 Units/L (26-192); CREATININE 1.61 mg/dL (0.55-1.02); GLUCOSE 139 mg/dL (65-99); POTASSIUM 4.3 mmol/L (3.5-5.1); SODIUM 142 mmol/L (136-145); TOTAL PROTEIN 6.5 g/dL (6.4-8.2); eGFR NON BLACK RACES 35 (>60)
[2023-07-05] MEDS ORDERED: PATIENT'S HOME MEDICATION (Dapagliflozin Propanediol [Farxiga] 10 mg tablet) PO SCH (09:00)
[2023-07-05] MEDS ORDERED: PATIENT'S HOME MEDICATION (Citalopram 40 mg tablet) PO SCH (09:00)
[2023-07-05] MEDS: CATAPRES TAB 0.1 MG PO SCH (09:04)
[2023-07-05] MEDS: ELAVIL PO SCH (09:04)
[2023-07-05] MEDS: LOPRESSOR TAB 50 MG PO SCH ×2 (09:05→21:00)
[2023-07-05] MEDS: XARELTO PO SCH (09:06)
[2023-07-05] MEDS: VASOTEC TAB 20 MG PO SCH ×2 (09:06→20:58)
[2023-07-05] MEDS ORDERED: GLUCOPHAGE ONE ×2 (09:16→20:13)
[2023-07-05] MEDS: CALAN SR 240 MG PO SCH (09:30)
[2023-07-05] MEDS: PROTONIX TAB 40 MG PO SCH (09:30)
[2023-07-05] MEDS: TRICOR TAB 145 MG PO SCH (09:30)
[2023-07-05] MEDS: FARXIGA PO SCH (09:30)
[2023-07-05] MEDS: KEPPRA TAB 500 MG PO SCH ×2 (09:30→20:27)
[2023-07-05] MEDS: GLUCOPHAGE PO SCH ×2 (09:31→20:27)
[2023-07-05] MEDS: CELEXA PO SCH (09:31)
[2023-07-05] MEDS: ULTRAM PO PRN ×2 (17:15→21:00)
--- NOTE | 2023-07-05 19:11 | DR.H&P ---
H&P - History & Physical for Day of: H&P Date: 07/04/23 - Chief Complaint Chief Complaint: WEAKNESS, AMS, HEADACHE - History of Present Illness History of Present Illness: IS A 57 YEAR OLD PATIENT OF OURS. SHE PRESENTED TO THE ER WITH COMPLAINTS OF CONFUSION, DIFFICULTY IN THINKING, AND HEADACHE THAT STARTED UPON AWAKENING THIS MORNING. SHE DENIES VISION CHANGES, RECENT ILLNESS OR TRAUMA, FEVER, CHILLS, CHEST PAIN, OR UPPER RESPIRATORY SX. SHE DESCRIBES HEADACHE DULL AND INTERMITTENT. SHE RATES IT A 3/10. PATIENT REPORTS THAT SHE TOUCHED A HOT POT THIS MORNING. SHE REPORTS THAT HER LEFT ARM FEELS A BIT WEAK. UPON EXAMINATION, SHE HAS NO TRUE FOCAL DEFICITS. SHE HAS A PMH OF CHF, DM II, DYSLIPIDEMIA, GERD, HTN, WI, TIAs, ISCHEMIC VESSEL DISEASE, APPENDECTOMY, AND HYSTERECTOMY. THERE WAS A CHRONIC RIGHT INTERNAL CAPSULAR LACUNAR INFARCT THAT SHOWED UP ON THE MRI IN AUGUST OF 2022. ON ARRIVAL TO THE HOSPITAL, HER VITALS WERE: 98.1-87-20-100%-127/63. LABS WERE OBTAINED. WBC 10.4, RBC 3.77, HGB 11.9, HCT 35.6, PLT COUNT 259, SODIUM 143, POTASSIUM 4.6, CHLORIDE 103, CARBON DIOXIDE 30.6, BUN 28, CREATININE 2.17, GLUCOSE 130, CALCIUM 9.6, TOTAL BILI 0.30, AST 55, ALT 26, ALK PHOS 60, CREATINE KINASE >1000, TROPONIN 5 .7, TOTAL PROTEIN 8.2, ALBUMIN 4.5, LIPASE 30. URINALYSIS WAS OBTAINED AND WAS UNREMARKABLE. A BRAIN CT WAS OBTAINED AND REVEALED: Stable head CT exam. No acute intracranial hemorrhage observed. A CHEST XRAY WAS OBTAINED AND REVEALED: No acute cardiopulmonary disease. SHE WAS GIVEN A NORMAL SALINE 1 LITER BOLUS X 2 IN THE ER. SHE WAS ADMITTED TO THE HOSPITAL OBSERVATION STATUS FOR FURTHER EVALUATION AND TREATMENT OF RHABDOMYOLYSIS, CHRONIC RENAL INSUFFICIENCY, ALTERED MENTAL STATUS, RULE OUT CVA. SHE WAS STARTED ON NS AT 125 ML/HR, OTBS ACHS, HUMULIN R SLIDING SCALE. WE WILL RESUME HER HOME MEDICATIONS OF XANAX, ELAVIL, CLONIDINE, CELEXA, VASOTEC, NEURONTIN, TRICOR, KEPPRA, METFORMIN, XARELTO, PROTONIX, ZANAFLEX, ULTRAM, AND VERAPAMIL. OTHERWISE, WE WILL FOLLOW UP WITH AM LABS AND CONTINUE TO MONITOR. TIME SPENT ON CLINICAL ASSESSMENT, REVIEWING LABS AND IMAGING, DECISION MAKING, AND DOCUMENTATION GREATER THAN 75 MINUTES. - Past Medical History Past Medical History: WI, Coronary Artery Disease, Hypertension, Dyslipidemia, Diabetes, Renal Disease, Depression, Anxiety, GERD, Gout, CHF Additional Medical History: TIA - Past Surgical History Surgical History: Cholecystectomy, Hysterectomy, Ortho Surgery - Family History Family Medical History: Diabetes Mellitus, Cancer, WI, Coronary Artery Disease, Hypertension - Social History Does patient currently use any type of tobacco product: No Does any household member use tobacco: No Alcohol Use: None Drug Use: None - Review of Systems Constitutional: Weakness Eyes: No Symptoms Reported ENT: No Symptoms Reported Respiratory: No Symptoms Reported Cardiovascular: No Symptoms Reported Gastrointestinal: No Symptoms Reported Genitourinary: No Symptoms Reported Musculoskeletal: No Symptoms Reported Skin: No Symptoms Reported Neurological: Weakness, Confusion - Physical Exam Vital Signs: Vital Signs Temperature 97.9 F Temperature 97.6 F Pulse Rate [Right Brachial] 69 Pulse Rate [Right Brachial] 89 Respiratory Rate 18 Respiratory Rate 18 Respiratory Rate 20 Respiratory Rate 18 Blood Pressure [Right Arm] 112/65 Blood Pressure [Right Arm] 176/79 O2 Sat by Pulse Oximetry 95 O2 Sat by Pulse Oximetry 94 Oriented: Normal Eyes: Normal Ear: Normal Nose: Normal Throat: Normal Respiratory: Diminished Throughout Cardiovascular: Normal : Normal Auscultation: Bowel Sounds: Normal Palpation: Normal Tenderness: Normal Skin: Normal Musculoskeletal: Normal Psychiatric: Normal Mood Description: Calm Affect: Normal Speech Pattern: Clear - Assessment/Plan (1) Rhabdomyolysis Qualifiers: Rhabdomyolysis type: non-traumatic Qualified Code(s): M62.82 - Rhabdomyolysis Status: Acute Plan: ADMIT, NS AT 125 ML/HR, OTBS ACHS, HUMULIN R SLIDING SCALE. RESUME HOME MEDS (2) Chronic renal insufficiency Qualifiers: Chronic kidney disease stage: unspecified stage Qualified Code(s): N18.9 - Chronic kidney disease, unspecified Status: Acute (3) Altered mental state Qualifiers: Altered mental status type: transient alteration of awareness Qualified Code(s): R40.4 - Transient alteration of awareness Status: Acute (4) Essential hypertension Status: Chronic Plan: CONTINUE CLONIDINE, VASOTEC (5) Hyperlipidemia Status: Chronic Plan: CONTINUE TRICOR (6) Generalized anxiety disorder Status: Chronic Plan: CONTINUE XANAX (7) Diabetes mellitus Qualifiers: Diabetes mellitus type: type 2 Diabetes mellitus buttermaker continuous churn insulin use: unspecified buttermaker continuous churn insulin use status Diabetes mellitus complication status : without complication Qualified Code(s): E11.9 - Type 2 diabetes mellitus without complications Status: Chronic Plan: OTBS ACHS, HUMULIN R SLIDING SCALE, METFORMIN - Allergies Allergies/Adverse Reactions: Allergies Allergy/AdvReac Type Severity Reaction Status Date / Time No Known Drug Allergies Allergy Verified 04/01/23 20:03 - Medications Home Medications: Home Medications Medication Instructions Recorded Confirmed allopurinol 300 mg tablet 300 mg PO QDAY 07/04/23 07/04/23 alprazolam 0.5 mg tablet 0.5 mg PO PRN PRN 07/04/23 07/04/23 amitriptyline 10 mg tablet 10 mg PO DAILY 07/04/23 07/04/23 citalopram 40 mg tablet 40 mg PO QDAY 07/04/23 07/04/23 clonidine HCl 0.1 mg tablet 0.1 mg PO QDAY 07/04/23 07/04/23 dapagliflozin propanediol 10 mg 10 mg PO QDAY 07/04/23 07/04/23 tablet (Farxiga) enalapril maleate 20 mg tablet 20 mg PO BID 07/04/23 07/04/23 fenofibrate nanocrystallized 145 145 mg PO QDAY 07/04/23 07/04/23 mg tablet gabapentin 600 mg tablet 600 mg PO TID 07/04/23 07/04/23 levetiracetam 500 mg tablet 500 mg PO BID 07/04/23 07/04/23 meclizine 25 mg tablet 50 mg PO BID 07/04/23 07/04/23 metformin 500 mg tablet 500 mg PO BID 07/04/23 07/04/23 metoprolol tartrate 100 mg tablet 100 mg PO BID 07/04/23 07/04/23 omeprazole 20 mg capsule,delayed 20 mg PO BID 07/04/23 07/04/23 release pantoprazole 40 mg tablet,delayed 40 mg PO QDAY 07/04/23 07/04/23 release rivaroxaban 2.5 mg tablet (Xarelto) 2.5 mg PO DAILY 07/04/23 07/04/23 tizanidine 4 mg tablet 4 mg PO TID 07/04/23 07/04/23 verapamil 240 mg tablet,extended 240 mg PO QDAY 07/04/23 07/04/23 release
[2023-07-05] MEDS: XANAX PO PRN (20:28)
[2023-07-05] MEDS: SNACK - Diabetic Appropriate PO SCH (20:58)
[2023-07-06] MEDS: NS 1,000 ML IV 1,000 ML IV SCH ×6 (04:19→23:26)
[2023-07-06 05:20] LABS: BASOPHILS % (AUTO) 0.7 % (0.2-1.0); EOSINOPHILS # (AUTO) 0.2 x10^3/uL (0.0-0.2); HEMATOCRIT 31.2 % (36.0-47.0); HEMOGLOBIN 10.7 g/dL (12.0-16.0); LYMPHOCYTES # (AUTO) 2.5 X10^3/uL (1.3-2.9); LYMPHOCYTES % (AUTO) 40.2 % (21.0-51.0); MEAN CORPUSCULAR HEMOGLOBIN 31.7 pg (27.0-34.0); MEAN CORPUSCULAR HGB CONC 34.2 g/dL (33.0-35.0); MEAN CORPUSCULAR VOLUME 92.8 fL (80.0-100.0); MEAN PLATELET VOLUME 7.7 fL (7.4-11.0); MONOCYTES # (AUTO) 0.3 x10^3/uL (0.3-0.8); MONOCYTES % (AUTO) 5.7 % (0.0-13.0); NEUTROPHILS # (AUTO) 3.1 x10^3/uL (2.2-4.8); NEUTROPHILS % (AUTO) 50.4 % (42.0-75.0); PLATELET COUNT 218 X10^3/uL (150.0-450.0); RED BLOOD COUNT 3.36 X10^6/uL (3.5-5.4); RED CELL DISTRIBUTION WIDTH 13.2 % (11.6-16.5); WHITE BLOOD COUNT 6.2 X10^3/uL (3.6-10.0)
[2023-07-06] MEDS: NEURONTIN CAP 300 MG PO SCH ×3 (05:23→21:26)
[2023-07-06] MEDS: ZANAFLEX PO SCH ×3 (05:23→21:26)
[2023-07-06] MEDS: ULTRAM PO PRN ×2 (05:23→08:45)
[2023-07-06 05:29] LABS: ALANINE AMINOTRANSFERASE 17 Units/L (12-78); ALBUMIN 3.4 g/dL (3.4-5.0); ALKALINE PHOSPHATASE 49 Units/L (46-116); ASPARTATE AMINO TRANSFERASE 29 Units/L (15-37); BLOOD UREA NITROGEN 19 mg/dL (7-18); CALCIUM 8.7 mg/dL (8.5-10.1); CARBON DIOXIDE 30.2 mmol/L (21-32); CHLORIDE 104 mmol/L (98-107); COR NA(FOR HYPERGLY) 139 mmol/L (136-145); CREATINE KINASE 457 Units/L (26-192); CREATININE 1.24 mg/dL (0.55-1.02); GLUCOSE 111 mg/dL (65-99); POTASSIUM 4.1 mmol/L (3.5-5.1); SODIUM 139 mmol/L (136-145); TOTAL PROTEIN 6.6 g/dL (6.4-8.2); eGFR NON BLACK RACES 47 (>60)
[2023-07-06] MEDS ORDERED: GLUCOPHAGE ONE ×2 (07:31→18:51)
[2023-07-06] MEDS: CELEXA PO SCH (08:43)
[2023-07-06] MEDS: FARXIGA PO SCH (08:43)
[2023-07-06] MEDS: XARELTO PO SCH (08:44)
[2023-07-06] MEDS: KEPPRA TAB 500 MG PO SCH ×2 (08:44→20:31)
[2023-07-06] MEDS: TRICOR TAB 145 MG PO SCH (08:44)
[2023-07-06] MEDS: GLUCOPHAGE PO SCH ×2 (08:45→20:31)
[2023-07-06] MEDS: LOPRESSOR TAB 50 MG PO SCH (08:45)
[2023-07-06] MEDS: PROTONIX TAB 40 MG PO SCH (08:46)
[2023-07-06] MEDS: CALAN SR 240 MG PO SCH (08:46)
[2023-07-06] MEDS: ELAVIL PO SCH (08:46)
[2023-07-06] MEDS: CATAPRES TAB 0.1 MG PO SCH (08:46)
[2023-07-06] MEDS: VASOTEC TAB 20 MG PO SCH (08:46)
[2023-07-06 10:08] VITALS: BMI 33.5
--- NOTE | 2023-07-06 11:01 | PCM.PROG ---
Progress Note Progress Note for Day of Date of Exam: 07/06/23 Subjective Subjective: Patient seen at bedside, no acute events overnight. She has been doing well, has been ambulating in the room. Denies any GI Sx. She has been admitted for rhabdomyolysis and weakness. Labs/imaging reviewed -CK 457 BUN/Cr 19.24 Hgb 10.7 Plan: Continue hydration with NS. Ambulate as tolerated. Continue home medications. Monitor AM labs/imaging. Possible discharge tomorrow. Past Medical Family Social History Allergies: Allergies No Known Drug Allergies Allergy (Verified 04/01/23 20:03) Vital Signs and I&O's Vital Signs: Vital Signs Temperature 97.6 F Temperature 97.9 F Pulse Rate [Right Brachial] 63 Pulse Rate [Right Brachial] 65 Respiratory Rate 18 Respiratory Rate 20 Respiratory Rate 18 Respiratory Rate 18 Respiratory Rate 18 Blood Pressure [Right Arm] 141/63 Blood Pressure [Right Arm] 140/75 O2 Sat by Pulse Oximetry 97 O2 Sat by Pulse Oximetry 94 Intake and Output: Intake & Output 07/03/23 07/04/23 07/05/23 07/06/23 23:59 23:59 23:59 23:59 Intake Total 2420 / 2420 3826 / 3826 873 / 873 Balance 2420 / 2420 3826 / 3826 873 / 873 Physical Exam Oriented: Normal Eyes: Normal Ear: Normal Nose: Normal Throat: Normal Cardiovascular: Normal Auscultation: Bowel Sounds: Normal Tenderness: Normal Skin: Normal Musculoskeletal: Normal Psychiatric: Normal Mood Description: Calm Affect: Normal Speech Pattern: Clear and Appropriate Laboratory and Diagnostics 07/06/23 04:35 07/06/23 04:35 Labs: Laboratory WBC 6.2 X10^3/uL (3.6-10.0) 07/06/23 04:35 RBC 3.36 X10^6/uL (3.5-5.4) L 07/06/23 04:35 Hgb 10.7 g/dL (12.0-16.0) L 07/06/23 04:35 Hct 31.2 % (36.0-47.0) L 07/06/23 04:35 MCV 92.8 fL (80.0-100.0) 07/06/23 04:35 MCH 31.7 pg (27.0-34.0) 07/06/23 04:35 MCHC 34.2 g/dL (33.0-35.0) 07/06/23 04:35 RDW 13.2 % (11.6-16.5) 07/06/23 04:35 Plt Count 218 X10^3/uL (150.0-450.0) 07/06/23 04:35 MPV 7.7 fL (7.4-11.0) 07/06/23 04:35 Neut % (Auto) 50.4 % (42.0-75.0) 07/06/23 04:35 Lymph % (Auto) 40.2 % (21.0-51.0) 07/06/23 04:35 [place] % (Auto) 5.7 % (0.0-13.0) 07/06/23 04:35 Eos % (Auto) 3.0 % (0.9-2.9) H 07/06/23 04:35 Baso % (Auto) 0.7 % (0.2-1.0) 07/06/23 04:35 Neut # (Auto) 3.1 x10^3/uL (2.2-4.8) 07/06/23 04:35 Lymph # (Auto) 2.5 X10^3/uL (1.3-2.9) 07/06/23 04:35 [place] # (Auto) 0.3 x10^3/uL (0.3-0.8) 07/06/23 04:35 Eos # (Auto) 0.2 x10^3/uL (0.0-0.2) 07/06/23 04:35 Baso # (Auto) 0.0 X10^3/uL (0.0-0.1) 07/06/23 04:35 Absolute Nucleated RBC 0.2 /100WBC 07/06/23 04:35 Sodium 139 mmol/L (136-145) 07/06/23 04:35 Corrected Sodium 139 mmol/L (136-145) 07/06/23 04:35 Potassium 4.1 mmol/L (3.5-5.1) 07/06/23 04:35 Chloride 104 mmol/L (98-107) 07/06/23 04:35 Carbon Dioxide 30.2 mmol/L (21-32) 07/06/23 04:35 BUN 19 mg/dL (7-18) H 07/06/23 04:35 Creatinine 1.24 mg/dL (0.55-1.02) H 07/06/23 04:35 Est GFR (MDRD) Af Amer 57 (>60) L 07/06/23 04:35 Est GFR (MDRD) Non-Af 47 (>60) L 07/06/23 04:35 Glucose 111 mg/dL (65-99) H 07/06/23 04:35 Calcium 8.7 mg/dL (8.5-10.1) 07/06/23 04:35 Corrected Calcium TNP 07/06/23 04:35 Total Bilirubin 0.30 mg/dL (0.2-1.0) 07/06/23 04:35 AST 29 Units/L (15-37) 07/06/23 04:35 ALT 17 Units/L (12-78) 07/06/23 04:35 Alkaline Phosphatase 49 Units/L (46-116) 07/06/23 04:35 Creatine Kinase 457 Units/L (26-192) H 07/06/23 04:35 Troponin I High Sens 5.7 ng/L (4.0-60.0) 07/04/23 12:17 Total Protein 6.6 g/dL (6.4-8.2) 07/06/23 04:35 Albumin 3.4 g/dL (3.4-5.0) 07/06/23 04:35 Globulin 3.2 g/dL (2.5-4.5) 07/06/23 04:35 Albumin/Globulin Ratio 1.1 Ratio (1.1-2.1) 07/06/23 04:35 Lipase 30 Units/L (16-77) 07/04/23 12:17 Specimen Type Clean catch urine 07/04/23 16:20 Urine Color Yellow (YELLOW) 07/04/23 16:20 Urine Appearance Clear (CLEAR) 07/04/23 16:20 Urine pH 5.0 (5.0 - 8.0) 07/04/23 16:20 Ur Specific [place] 1.025 (1.000-1.030) 07/04/23 16:20 Urine Protein 1+ (NEGATIVE) 07/04/23 16:20 Urine Glucose (UA) 4+ (NEGATIVE) 07/04/23 16:20 Urine Ketones Negative (NEGATIVE) 07/04/23 16:20 Urine Blood 2+ (NEGATIVE) 07/04/23 16:20 Urine Nitrite Negative (NEGATIVE) 07/04/23 16:20 Urine Bilirubin Negative (NEGATIVE) 07/04/23 16:20 Urine Urobilinogen Normal (NORMAL) 07/04/23 16:20 Ur Leukocyte Esterase Negative (NEGATIVE) 07/04/23 16:20 Urine RBC 0-2 /HPF (0-3) 07/04/23 16:20 Urine WBC None seen /HPF (0-5) 07/04/23 16:20 Ur Squamous Epith Cells Rare /HPF (NEGATIVE) 07/04/23 16:20 Urine Bacteria Negative /HPF (NEGATIVE) 07/04/23 16:20 Urine Mucus Many /HPF (NEGATIVE) 07/04/23 16:20 Ur Culture Indicated? No/not indicated 07/04/23 16:20 Plan (1) Rhabdomyolysis: Status: Acute Qualifiers: Rhabdomyolysis type: non-traumatic Qualified Code(s): M62.82 - R habdomyolysis (2) Chronic renal insufficiency: Status: Acute Qualifiers: Chronic kidney disease stage: unspecified stage Qualified Code(s): N18. 9 - Chronic kidney disease, unspecified (3) Altered mental state: Status: Acute Qualifiers: Altered mental status type: transient alteration of awareness Qualified Code(s): R40.4 - Transient alteration of awareness (4) Essential hypertension: Status: Chronic Plan: CONTINUE CLONIDINE, VASOTEC (5) Hyperlipidemia: Status: Chronic Plan: CONTINUE TRICOR (6) Generalized anxiety disorder: Status: Chronic Plan: CONTINUE XANAX (7) Diabetes mellitus: Status: Chronic Qualifiers: Diabetes mellitus complication status: without complication Diabetes mellitus skilled nursing insulin use: unspecified terminologist insulin use status Diab etes mellitus type: type 2 Qualified Code(s): E11.9 - Type 2 diabetes mellitus without complications Plan: OTBS ACHS, HUMULIN R SLIDING SCALE, METFORMIN
[2023-07-06] MEDS ORDERED: NS 1,000 ML IV IV ONE ×2 (16:44→16:48)
[2023-07-06] MEDS ORDERED: CATAPRES TAB 0.1 MG PO PRN (16:45)
[2023-07-06] MEDS: SNACK - Diabetic Appropriate PO SCH (20:31)
[2023-07-07 04:50] LABS: BASOPHILS # (AUTO) 0.1 X10^3/uL (0.0-0.1); BASOPHILS % (AUTO) 0.6 % (0.2-1.0); EOSINOPHILS # (AUTO) 0.1 x10^3/uL (0.0-0.2); EOSINOPHILS % (AUTO) 1.5 % (0.9-2.9); HEMOGLOBIN 10.4 g/dL (12.0-16.0); LYMPHOCYTES # (AUTO) 2.1 X10^3/uL (1.3-2.9); LYMPHOCYTES % (AUTO) 24.2 % (21.0-51.0); MEAN CORPUSCULAR HEMOGLOBIN 31.2 pg (27.0-34.0); MEAN CORPUSCULAR HGB CONC 33.4 g/dL (33.0-35.0); MEAN CORPUSCULAR VOLUME 93.4 fL (80.0-100.0); MEAN PLATELET VOLUME 7.4 fL (7.4-11.0); MONOCYTES # (AUTO) 0.5 x10^3/uL (0.3-0.8); MONOCYTES % (AUTO) 5.5 % (0.0-13.0); NEUTROPHILS % (AUTO) 68.2 % (42.0-75.0); PLATELET COUNT 200 X10^3/uL (150.0-450.0); RED BLOOD COUNT 3.32 X10^6/uL (3.5-5.4); RED CELL DISTRIBUTION WIDTH 13.2 % (11.6-16.5); WHITE BLOOD COUNT 8.8 X10^3/uL (3.6-10.0)
[2023-07-07 04:51] LABS: CALCIUM 8.5 mg/dL (8.5-10.1); CARBON DIOXIDE 29.6 mmol/L (21-32); CREATININE 1.84 mg/dL (0.55-1.02); POTASSIUM 4.2 mmol/L (3.5-5.1)
[2023-07-07] MEDS: ZANAFLEX PO SCH ×3 (05:56→21:29)
[2023-07-07] MEDS: NEURONTIN CAP 300 MG PO SCH ×3 (05:56→21:29)
[2023-07-07] MEDS: ULTRAM PO PRN (05:57)
[2023-07-07] MEDS: NS 1,000 ML IV 1,000 ML IV SCH (06:01)
[2023-07-07] MEDS ORDERED: GLUCOPHAGE ONE ×2 (08:41→19:54)
[2023-07-07] MEDS: ELAVIL PO SCH (08:49)
[2023-07-07] MEDS: XARELTO PO SCH (08:50)
[2023-07-07] MEDS: FARXIGA PO SCH (08:50)
[2023-07-07] MEDS: PROTONIX TAB 40 MG PO SCH (08:51)
[2023-07-07] MEDS: GLUCOPHAGE PO SCH ×2 (08:51→21:28)
[2023-07-07] MEDS: CELEXA PO SCH (08:51)
[2023-07-07] MEDS: TRICOR TAB 145 MG PO SCH (08:51)
[2023-07-07] MEDS: KEPPRA TAB 500 MG PO SCH ×2 (08:51→20:49)
--- NOTE | 2023-07-07 09:07 | RAD ---
EXAM:AP chestHISTORY:CHFCOMPARISON:07/04/2023 r.br.br.br lungs and pleural spaces are clear. There is no definite edema, pneumonia, atelectasis or pleural fluid.IMPRESSION:No acute findings.THIS IS AN ELECTRONICALLY VERIFIED FINAL [id number]/07/2023 9:04 AM - Electronically signed by Jewel Blackwell MD
[2023-07-07] MEDS ORDERED: LASIX IVP ONE (12:10)
--- NOTE | 2023-07-07 12:17 | PCM.PROG ---
Progress Note Progress Note for Day of Date of Exam: 07/07/23 Subjective Subjective: Patient seen at bedside, no acute events overnight. Her BP was noted to be in the 80/60s yesterday afternoon, she reported some dizziness. Patient told the staff that all her BP medications have been discontinued since her BP has been running low for the past few months. She was given those home medications yesterday. NS 500 bolus was given and her BP normalized. She is feeling better this morning. She reports more swelling in her hands and abdomen. She reports some dyspnea with exertion. 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 She has been admitted for rhabdomyolysis and weakness. Labs/imaging reviewed -CK 273 BUN/Cr 03/09.84 Hgb 10.4 - CXR 07/07/23: no acute process Plan: Will stop IVF, give one dose of Lasix IV 20 mg, monitor I&Os. All home BP medications have been stopped, clonidine prn if SBP >160. Ambulate as tolerated. Monitor AM labs/imaging. Past Medical Family Social History Allergies: Allergies No Known Drug Allergies Allergy (Verified 04/01/23 20:03) Vital Signs and I&O's Vital Signs: Vital Signs Respiratory Rate 20 Intake and Output: Intake & Output 07/04/23 07/05/23 07/06/23 07/07/23 23:59 23:59 23:59 23:59 Intake Total 2420 / 2420 3826 / 3826 3850 / 3850 1072 / 1072 Balance 2420 / 2420 3826 / 3826 3850 / 3850 1072 / 1072 Physical Exam Oriented: Normal Eyes: Normal Ear: Normal Nose: Normal Throat: Normal Respiratory: Right, Left and [place] Cardiovascular: Normal and Edema (both hands) Auscultation: Bowel Sounds: Normal Tenderness: Normal Skin: Normal Musculoskeletal: Normal Psychiatric: Normal Mood Description: Calm Affect: Normal Speech Pattern: Clear and Appropriate Laboratory and Diagnostics 07/07/23 04:14 07/07/23 04:14 Labs: Laboratory WBC 8.8 X10^3/uL (3.6-10.0) 07/07/23 04:14 RBC 3.32 X10^6/uL (3.5-5.4) L 07/07/23 04:14 Hgb 10.4 g/dL (12.0-16.0) L 07/07/23 04:14 Hct 31.0 % (36.0-47.0) L 07/07/23 04:14 MCV 93.4 fL (80.0-100.0) 07/07/23 04:14 MCH 31.2 pg (27.0-34.0) 07/07/23 04:14 MCHC 33.4 g/dL (33.0-35.0) 07/07/23 04:14 RDW 13.2 % (11.6-16.5) 07/07/23 04:14 Plt Count 200 X10^3/uL (150.0-450.0) 07/07/23 04:14 MPV 7.4 fL (7.4-11.0) 07/07/23 04:14 Neut % (Auto) 68.2 % (42.0-75.0) 07/07/23 04:14 Lymph % (Auto) 24.2 % (21.0-51.0) 07/07/23 04:14 [place] % (Auto) 5.5 % (0.0-13.0) 07/07/23 04:14 Eos % (Auto) 1.5 % (0.9-2.9) 07/07/23 04:14 Baso % (Auto) 0.6 % (0.2-1.0) 07/07/23 04:14 Neut # (Auto) 6.0 x10^3/uL (2.2-4.8) H 07/07/23 04:14 Lymph # (Auto) 2.1 X10^3/uL (1.3-2.9) 07/07/23 04:14 [place] # (Auto) 0.5 x10^3/uL (0.3-0.8) 07/07/23 04:14 Eos # (Auto) 0.1 x10^3/uL (0.0-0.2) 07/07/23 04:14 Baso # (Auto) 0.1 X10^3/uL (0.0-0.1) 07/07/23 04:14 Absolute Nucleated RBC 0.2 /100WBC 07/07/23 04:14 Sodium 137 mmol/L (136-145) 07/07/23 04:14 Corrected Sodium 137 mmol/L (136-145) 07/07/23 04:14 Potassium 4.2 mmol/L (3.5-5.1) 07/07/23 04:14 Chloride 102 mmol/L (98-107) 07/07/23 04:14 Carbon Dioxide 29.6 mmol/L (21-32) 07/07/23 04:14 BUN 23 mg/dL (7-18) H 07/07/23 04:14 Creatinine 1.84 mg/dL (0.55-1.02) H 07/07/23 04:14 Est GFR (MDRD) Af Amer 36 (>60) L 07/07/23 04:14 Est GFR (MDRD) Non-Af 30 (>60) L 07/07/23 04:14 Glucose 113 mg/dL (65-99) H 07/07/23 04:14 Calcium 8.5 mg/dL (8.5-10.1) 07/07/23 04:14 Corrected Calcium TNP 07/06/23 04:35 Total Bilirubin 0.30 mg/dL (0.2-1.0) 07/06/23 04:35 AST 29 Units/L (15-37) 07/06/23 04:35 ALT 17 Units/L (12-78) 07/06/23 04:35 Alkaline Phosphatase 49 Units/L (46-116) 07/06/23 04:35 Creatine Kinase 273 Units/L (26-192) H 07/07/23 04:14 Troponin I High Sens 5.7 ng/L (4.0-60.0) 07/04/23 12:17 B-Natriuretic Peptide 287 pg/mL (0-79) H 07/07/23 04:14 Total Protein 6.6 g/dL (6.4-8.2) 07/06/23 04:35 Albumin 3.4 g/dL (3.4-5.0) 07/06/23 04:35 Globulin 3.2 g/dL (2.5-4.5) 07/06/23 04:35 Albumin/Globulin Ratio 1.1 Ratio (1.1-2.1) 07/06/23 04:35 Lipase 30 Units/L (16-77) 07/04/23 12:17 Specimen Type Clean catch urine 07/04/23 16:20 Urine Color Yellow (YELLOW) 07/04/23 16:20 Urine Appearance Clear (CLEAR) 07/04/23 16:20 Urine pH 5.0 (5.0 - 8.0) 07/04/23 16:20 Ur Specific [place] 1.025 (1.000-1.030) 07/04/23 16:20 Urine Protein 1+ (NEGATIVE) 07/04/23 16:20 Urine Glucose (UA) 4+ (NEGATIVE) 07/04/23 16:20 Urine Ketones Negative (NEGATIVE) 07/04/23 16:20 Urine Blood 2+ (NEGATIVE) 07/04/23 16:20 Urine Nitrite Negative (NEGATIVE) 07/04/23 16:20 Urine Bilirubin Negative (NEGATIVE) 07/04/23 16:20 Urine Urobilinogen Normal (NORMAL) 07/04/23 16:20 Ur Leukocyte Esterase Negative (NEGATIVE) 07/04/23 16:20 Urine RBC 0-2 /HPF (0-3) 07/04/23 16:20 Urine WBC None seen /HPF (0-5) 07/04/23 16:20 Ur Squamous Epith Cells Rare /HPF (NEGATIVE) 07/04/23 16:20 Urine Bacteria Negative /HPF (NEGATIVE) 07/04/23 16:20 Urine Mucus Many /HPF (NEGATIVE) 07/04/23 16:20 Ur Culture Indicated? No/not indicated 07/04/23 16:20 Plan (1) Fluid overload: Status: Acute Qualifiers: Hypervolemia type: unspecified Qualified Code(s): E87.70 - Fluid overload, unspecified (2) Rhabdomyolysis: Status: Acute Qualifiers: Rhabdomyolysis type: non-traumatic Qualified Code(s): M62.82 - Rhabdomyolysis (3) Chronic renal insufficiency: Status: Acute Qualifiers: Chronic kidney disease stage: unspecified stage Qualified Code(s): N18.9 - Chronic kidney disease, unspecified (4) Altered mental state: Status: Acute Qualifiers: Altered mental status type: transient alteration of awareness Qualified Code(s): R40.4 - Transient alteration of awareness (5) Essential hypertension: Status: Chronic (6) Hyperlipidemia: Status: Chronic (7) Generalized anxiety disorder: Status: Chronic (8) Diabetes mellitus: Status: Chronic Qualifiers: Diabetes mellitus complication status: without complication Diabetes mellitus long-term insulin use: unspecified long-term insulin use status Diabetes mellitus type: type 2 Qualified Code(s): E11.9 - Type 2 diabetes mellitus without complications
[2023-07-07] MEDS ORDERED: LASIX PO ONE (13:00)
[2023-07-07] MEDS: SNACK - Diabetic Appropriate PO SCH (21:28)
[2023-07-08] MEDS: NEURONTIN CAP 300 MG PO SCH (05:06)
[2023-07-08] MEDS: ZANAFLEX PO SCH (05:06)
[2023-07-08 05:52] LABS: BASOPHILS # (AUTO) 0.1 X10^3/uL (0.0-0.1); BASOPHILS % (AUTO) 0.9 % (0.2-1.0); EOSINOPHILS # (AUTO) 0.1 x10^3/uL (0.0-0.2); HEMATOCRIT 32.8 % (36.0-47.0); HEMOGLOBIN 11.1 g/dL (12.0-16.0); LYMPHOCYTES # (AUTO) 1.9 X10^3/uL (1.3-2.9); LYMPHOCYTES % (AUTO) 27.9 % (21.0-51.0); MEAN CORPUSCULAR HEMOGLOBIN 31.3 pg (27.0-34.0); MEAN CORPUSCULAR VOLUME 92.2 fL (80.0-100.0); MEAN PLATELET VOLUME 7.2 fL (7.4-11.0); MONOCYTES # (AUTO) 0.5 x10^3/uL (0.3-0.8); MONOCYTES % (AUTO) 7.1 % (0.0-13.0); NEUTROPHILS # (AUTO) 4.3 x10^3/uL (2.2-4.8); NEUTROPHILS % (AUTO) 62.1 % (42.0-75.0); PLATELET COUNT 218 X10^3/uL (150.0-450.0); RED BLOOD COUNT 3.55 X10^6/uL (3.5-5.4); WHITE BLOOD COUNT 6.9 X10^3/uL (3.6-10.0)
[2023-07-08 06:02] LABS: ALANINE AMINOTRANSFERASE 17 Units/L (12-78); ALBUMIN 3.6 g/dL (3.4-5.0); ALKALINE PHOSPHATASE 52 Units/L (46-116); ASPARTATE AMINO TRANSFERASE 20 Units/L (15-37); BLOOD UREA NITROGEN 22 mg/dL (7-18); CALCIUM 9.1 mg/dL (8.5-10.1); CARBON DIOXIDE 30.4 mmol/L (21-32); CHLORIDE 100 mmol/L (98-107); COR NA(FOR HYPERGLY) 139 mmol/L (136-145); CREATINE KINASE 140 Units/L (26-192); CREATININE 1.62 mg/dL (0.55-1.02); GLUCOSE 122 mg/dL (65-99); POTASSIUM 3.6 mmol/L (3.5-5.1); SODIUM 138 mmol/L (136-145); TOTAL PROTEIN 7.2 g/dL (6.4-8.2); eGFR NON BLACK RACES 35 (>60)
[2023-07-08] MEDS ORDERED: CONSULT PHARMACY - POTASSIUM & MAGNESIUM XX SCH (07:00)
[2023-07-08] MEDS ORDERED: GLUCOPHAGE ONE (08:25)
[2023-07-08] MEDS: TRICOR TAB 145 MG PO SCH (08:49)
[2023-07-08] MEDS: ELAVIL PO SCH (08:49)
[2023-07-08] MEDS: PROTONIX TAB 40 MG PO SCH (08:49)
[2023-07-08] MEDS: GLUCOPHAGE PO SCH (08:49)
[2023-07-08] MEDS: KEPPRA TAB 500 MG PO SCH (08:49)
[2023-07-08] MEDS: FARXIGA PO SCH (08:50)
[2023-07-08] MEDS: CELEXA PO SCH (08:50)
[2023-07-08] MEDS: XARELTO PO SCH (08:51)
[2023-07-08] MEDS ORDERED: MAG-OX TAB PO SCH (09:00)
[2023-07-08] MEDS ORDERED: MICRO K EXTEN CAP 10 MEQ PO SCH (09:00)
[2023-07-08 11:31] VITALS: RESP 20; O2SAT 96
[2023-07-08 12:32] VITALS: BP 177/96; PULSE 66; TEMP 97.9
== END 2023-07-08 13:20 | disposition home or self-care (01) ==
LOC: MED/SURG 11:22 → ER 11:22 → MED/SURG 14:58
PROVIDERS: ADMIT Internal Medicine; ATTEND Internal Medicine

== ENCOUNTER 2023-11-13 11:19 | Inpatient (IN) ==
[2023-11-13 11:39] VITALS: BMI 45.1
--- NOTE | 2023-11-13 11:41 | DR.EXTPAIN ---
HPI Time seen Time Seen by Provider: 11/13/23 11:31 PCP Primary Care Physician: Dr. Valle Complaint/Symptoms Chief Complaint Doctor Comments: 58 y/o presents for evaluation. Patient having frequent falls, fell 2 days ago. Seen in the ER at that time had a negative head CT. Patient has fallen since that episode. Injured her right side. Complaining of right hip, right knee pain. Pain is sharp, worse with movement, does not radiate. Nothing makes it better.. Has generalized weakness. Denies fever, URI symptoms, bowel or bladder issues. Patient is on chronic pain management, states that hydrocodone 10 mgs is not helping. Chief Complaint:: Pt states that she fell two days ago from a standing position and landed on hardwood floor on her right side. Pt c/o pain in neck, right shoulder, right side, right hip and right thigh. Pt does have trouble keeping her eyes open and staying awake during triage. Self Treatment fo Chief Complaint: Pt took [place] 10/325 1 tablet po around 7am this morning with no improvement of symptoms. Pt was seen in ER here Saturday night and had normal CT head and CXR. Pt also had covid, flu, rsv, and strep swabs that were negative. COVID-19 Coronavirus risk:travel/contact w/high risk person: No Has patient experienced Coronavirus symptoms: No Source History Provided: Patient Mode of arrival Mode of Arrival: Wheelchair Timing Onset of Chief Complaint: 11/11/23 PMH PMH Past Medical History: Yes Past Medical History: CHF, Coronary Artery Disease, CVA, Diabetes, Migraines, [place] and Renal Disease Past Surgical History: Yes Surgical History: Cholecystectomy and Hysterectomy Family History History of Family Medical Conditions: Yes Family Medical History: Cancer Social History Does patient currently use any type of tobacco product: No Have you used tobacco products in the last 12 months: No Type of Tobacco Use: None Does any household member use tobacco: No Alcohol Use: None Do you use any recreational Drugs:: No Lives With: Family Lives Where: Home Travel Risk Coronavirus risk:travel/contact w/high risk person: No Has patient experienced Coronavirus symptoms: No Infectious screening In the last 2 months have you had wt loss of >10#?: NO Have you had fever, night sweats or hemotysis?: No Have you traveled outside the country in the last 6 months?: No Isolation: Standard ROS Review of Systems Constitutional: Weakness Eyes: No Symptoms Reported ENTM: No Symptoms Reported Respiratoy: No Symptoms Reported Cardiovascular: No Symptoms Reported Gastrointestinal/Abdominal: No Symptoms Reported Genitourinary: No Symptoms Reported Neurological: Weakness Musculoskeletal: See HPI Integumentary: No Symptoms Reported Hematologic/Lymphatic: No Symptoms Reported All Other Systems: Reviewed and Negative PE Vital Signs Vitals: Vital Signs Temperature 97.6 F Pulse Rate 79 Pulse Rate 79 Pulse Rate 76 Pulse Rate 79 Pulse Rate 80 Pulse Rate 77 Pulse Rate 79 Pulse Rate 78 Pulse Rate 77 Pulse Rate 77 Pulse Rate 77 Pulse Rate 77 Pulse Rate 76 Pulse Rate 77 Pulse Rate 75 Pulse Rate 74 Pulse Rate 73 Pulse Rate 74 Pulse Rate 73 Respiratory Rate 20 Respiratory Rate 20 Respiratory Rate 20 Blood Pressure 155/74 Blood Pressure 137/59 Blood Pressure 131/78 Blood Pressure 123/94 Blood Pressure 156/74 Blood Pressure 146/67 O2 Sat by Pulse Oximetry 92 O2 Sat by Pulse Oximetry 92 O2 Sat by Pulse Oximetry 99 O2 Sat by Pulse Oximetry 97 O2 Sat by Pulse Oximetry 98 O2 Sat by Pulse Oximetry 96 O2 Sat by Pulse Oximetry 96 O2 Sat by Pulse Oximetry 97 O2 Sat by Pulse Oximetry 96 O2 Sat by Pulse Oximetry 94 O2 Sat by Pulse Oximetry 95 O2 Sat by Pulse Oximetry 96 O2 Sat by Pulse Oximetry 95 O2 Sat by Pulse Oximetry 93 O2 Sat by Pulse Oximetry 91 O2 Sat by Pulse Oximetry 93 O2 Sat by Pulse Oximetry 93 O2 Sat by Pulse Oximetry 92 O2 Sat by Pulse Oximetry 94 General General Appearance: Alert and In No Apparent Distress Head Head Exam: Normal Inspection, Atraumatic and Normocephalic Eyes Eye exam: PERRL and EOMI ENT ENT Exam: Mucous Membranes Moist Neck Neck Exam: Normal Inspection and Full ROM; negative Tenderness Respiratory Respiratory Exam: Normal Lung Sounds Bilat; negative Accessory Muscle Use or Respiratory Distress Cardiovascular Cardiovascular Exam: Regular Rate, Normal Rhythm and Normal Heart Sounds Abdominal Exam Abdominal Exam: Soft; negative Tenderness Extremities Extremities Exam: negative Edema Back Back Exam: negative Tenderness Neurological Neurological Exam: Alert, Oriented X3 and CN II-XII Intact; negative Motor Sensory Deficit Skin Skin Exam: Warm and Dry Other Exam Other Exam: R hip - + lateral tenderness, + worse with ROM. R knee - no effusion, mild generalized tenderness, good ROM, ligaments intact. COURSE Treatment Treatment: 58-year-old female with frequent falls, fell and injured her right hip/knee. Will check baseline labs, x-ray affected parts. Patient given IV fluids, IV Toradol. 1157 - R hip, R knee x-rays unremarkable. Patient requested pain medication, given IV Dilaudid 1 mg. 1324 -labs show normal CBC, CMP acceptable. Does have some diminished renal function. AST has jumped to 1225, ALT 492. Total CK markedly elevated 19,049, c/w acute rhabdomyolysis. Will continue IV hydration, plan on admission. ROR Labs Reviewed Laboratory Results Reviewed?: Yes 11/13/23 11:30 11/13/23 11:30 Laboratory: WBC 10.8 X10^3/uL (3.6-10.0) H 11/13/23 11:30 RBC 3.65 X10^6/uL (3.5-5.4) 11/13/23 11:30 Hgb 11.5 g/dL (12.0-16.0) L 11/13/23 11:30 Hct 33.9 % (36.0-47.0) L 11/13/23 11:30 MCV 92.8 fL (80.0-100.0) 11/13/23 11:30 MCH 31.4 pg (27.0-34.0) 11/13/23 11:30 MCHC 33.9 g/dL (33.0-35.0) 11/13/23 11:30 RDW 12.8 % (11.6-16.5) 11/13/23 11:30 Plt Count 258 X10^3/uL (150.0-450.0) 11/13/23 11:30 MPV 7.8 fL (7.4-11.0) 11/13/23 11:30 Neut % (Auto) 82.3 % (42.0-75.0) H 11/13/23 11:30 Lymph % (Auto) 10.1 % (21.0-51.0) L 11/13/23 11:30 [place] % (Auto) 6.7 % (0.0-13.0) 11/13/23 11:30 Eos % (Auto) 0.1 % (0.9-2.9) L 11/13/23 11:30 Baso % (Auto) 0.8 % (0.2-1.0) 11/13/23 11:30 Neut # (Auto) 8.9 x10^3/uL (2.2-4.8) H 11/13/23 11:30 Lymph # (Auto) 1.1 X10^3/uL (1.3-2.9) L 11/13/23 11:30 [place] # (Auto) 0.7 x10^3/uL (0.3-0.8) 11/13/23 11:30 Eos # (Auto) 0.0 x10^3/uL (0.0-0.2) 11/13/23 11:30 Baso # (Auto) 0.1 X10^3/uL (0.0-0.1) 11/13/23 11:30 Absolute Nucleated RBC 0.2 /100WBC 11/13/23 11:30 Sodium 142 mmol/L (136-145) 11/13/23 11:30 Corrected Sodium 144 mmol/L (136-145) 11/13/23 11:30 Potassium 5.0 mmol/L (3.5-5.1) 11/13/23 11:30 Chloride 101 mmol/L (98-107) 11/13/23 11:30 Carbon Dioxide 30.6 mmol/L (21-32) 11/13/23 11:30 BUN 28 mg/dL (7-18) H 11/13/23 11:30 Creatinine 1.79 mg/dL (0.55-1.02) H 11/13/23 11:30 Est GFR (MDRD) Af Amer 37 (>60) L 11/13/23 11:30 Est GFR (MDRD) Non-Af 31 (>60) L 11/13/23 11:30 Glucose 186 mg/dL (65-99) H 11/13/23 11:30 Calcium 9.0 mg/dL (8.5-10.1) 11/13/23 11:30 Corrected Calcium TNP 11/13/23 11:30 Total Bilirubin 0.50 mg/dL (0.2-1.0) 11/13/23 11:30 AST 1225 Units/L (15-37) H 11/13/23 11:30 ALT 492 Units/L (12-78) H 11/13/23 11:30 Alkaline Phosphatase 98 Units/L (46-116) 11/13/23 11:30 Creatine Kinase 49944 Units/L (26-192) H 11/13/23 11:30 Total Protein 7.8 g/dL (6.4-8.2) 11/13/23 11:30 Albumin 3.7 g/dL (3.4-5.0) 11/13/23 11:30 Globulin 4.1 g/dL (2.5-4.5) 11/13/23 11:30 Albumin/Globulin Ratio 0.9 Ratio (1.1-2.1) L 11/13/23 11:30 Lipase 22 Units/L (16-77) 11/13/23 11:30 TSH 3rd Generation 2.664 uIU/mL (0.358-3.74) 11/13/23 11:30 see comments in " Course" XRAY XRAY Interpreted by: Both X-ray Results: No acute abnormalities on right hip/right knee x-rays. Opioid Opioid Risk Tool Age (Hans box if 16-45): No History of Preadolescent Sexual Abuse: No Total: 0 Total Score Risk Category: Low Risk Copyright: Jose GR predicting aberrant behaviors Discharge Plan Diagnosis Discharge Problem: Rhabdomyolysis Discharge Plan Patient Disposition: 09 ADMITTED INPATIENT Condition: Stable Orders to Discharge Patient Discharge Orders: Transfer (Routine); Ordered 11/13/23 Ordered By: Papa Colon
[2023-11-13 11:50] LABS: HEMOGLOBIN 11.5 g/dL (12.0-16.0); MEAN CORPUSCULAR HEMOGLOBIN 31.4 pg (27.0-34.0); MEAN CORPUSCULAR VOLUME 92.8 fL (80.0-100.0); MEAN PLATELET VOLUME 7.8 fL (7.4-11.0)
[2023-11-13 11:55] LABS: BASOPHILS # (AUTO) 0.1 X10^3/uL (0.0-0.1); BASOPHILS % (AUTO) 0.8 % (0.2-1.0); EOSINOPHILS % (AUTO) 0.1 % (0.9-2.9); HEMATOCRIT 33.9 % (36.0-47.0); LYMPHOCYTES # (AUTO) 1.1 X10^3/uL (1.3-2.9); LYMPHOCYTES % (AUTO) 10.1 % (21.0-51.0); MEAN CORPUSCULAR HGB CONC 33.9 g/dL (33.0-35.0); MONOCYTES # (AUTO) 0.7 x10^3/uL (0.3-0.8); MONOCYTES % (AUTO) 6.7 % (0.0-13.0); NEUTROPHILS # (AUTO) 8.9 x10^3/uL (2.2-4.8); NEUTROPHILS % (AUTO) 82.3 % (42.0-75.0); PLATELET COUNT 258 X10^3/uL (150.0-450.0); RED BLOOD COUNT 3.65 X10^6/uL (3.5-5.4); RED CELL DISTRIBUTION WIDTH 12.8 % (11.6-16.5); WHITE BLOOD COUNT 10.8 X10^3/uL (3.6-10.0)
[2023-11-13] MEDS: NS 500 ML IV 500 ML IV ONE ×2 (11:58→15:47)
[2023-11-13] MEDS: TORADOL 30 MG VIAL IVP ONE (12:00)
--- NOTE | 2023-11-13 12:11 | RAD ---
EXAM: KNEE COMPLETE, RIGHT HISTORY: S/P FALL ON SATURDAY, C/O RT HIP AND KNEE PAIN ; COMPARISON: No relevant studies are available for comparison at the time of interpretation. TECHNIQUE: 3 view(s) FINDINGS: The distal femur patella and proximal tibia and fibula are intact. No dislocation. No significant d egenerative change. Soft tissues are unremarkable. IMPRESSION: 1. No acute fracture or dislocation THIS IS AN ELECTRONICALLY VERIFIED FINAL REPORT 11/13/2023 12:07 PM - Electronically signed by Arturo Bowen MD
[2023-11-13 12:13] LABS: ALANINE AMINOTRANSFERASE 492 Units/L (12-78); ALBUMIN 3.7 g/dL (3.4-5.0); ALKALINE PHOSPHATASE 98 Units/L (46-116); BLOOD UREA NITROGEN 28 mg/dL (7-18); CARBON DIOXIDE 30.6 mmol/L (21-32); CHLORIDE 101 mmol/L (98-107); COR NA(FOR HYPERGLY) 144 mmol/L (136-145); CREATININE 1.79 mg/dL (0.55-1.02); GLUCOSE 186 mg/dL (65-99); LIPASE 22 Units/L (16-77); SODIUM 142 mmol/L (136-145); TOTAL PROTEIN 7.8 g/dL (6.4-8.2); TSH (3RD GENERATION) 2.664 uIU/mL (0.358-3.74); eGFR NON BLACK RACES 31 (>60)
--- NOTE | 2023-11-13 12:24 | RAD ---
EXAM:Right hip two viewsHISTORY:Recent fallCOMPARISON:April 09, 2023FINDINGS:There is no evidence for fracture or dislocation, femoral head deformity or osteolytic disease. There is medial deepening of the acetabular fossa.IMPRESSION:No acute findings. Mild coxa profunda.THIS IS AN ELECTRONICALLY VERIFIED FINAL REPORT11/13/2023 12:21 PM - Electronically signed by Jewel Blackwell MD
[2023-11-13] MEDS: DILAUDID INJ IVP ONE (12:41)
[2023-11-13 12:44] LABS: ASPARTATE AMINO TRANSFERASE 1225 Units/L (15-37)
[2023-11-13 13:18] LABS: CREATINE KINASE 19489 Units/L (26-192)
[2023-11-13] MEDS ORDERED: CONSULT PHARMACY - POTASSIUM & MAGNESIUM XX SCH (15:25)
[2023-11-13] MEDS ORDERED: ALPRAZOLAM ODT PO PRN (15:25)
[2023-11-13] MEDS ORDERED: ZANAFLEX PO PRN (15:25)
[2023-11-13] MEDS ORDERED: ANTIVERT TAB 25 MG PO PRN (15:25)
[2023-11-13] MEDS: TORADOL 30 MG VIAL ONE (15:47)
[2023-11-13] MEDS: DILAUDID INJ ONE (15:49)
[2023-11-13] MEDS: DILAUDID INJ IVP PRN (16:27)
[2023-11-13] MEDS: LR 1,000 ML IV 1,000 ML IV SCH (16:28)
[2023-11-13] MEDS: NEURONTIN CAP 300 MG PO SCH (21:02)
[2023-11-13] MEDS: TRICOR TAB 48 MG PO SCH (21:03)
[2023-11-13] MEDS: LOPRESSOR TAB 50 MG PO SCH (21:03)
[2023-11-13] MEDS: NORCO 10/325 TAB PO PRN (21:04)
[2023-11-14] MEDS: ZOFRAN INJ 4 MG VIAL IVP PRN (04:14)
[2023-11-14 06:13] LABS: BASOPHILS # (AUTO) 0.1 X10^3/uL (0.0-0.1); BASOPHILS % (AUTO) 1.3 % (0.2-1.0); EOSINOPHILS # (AUTO) 0.1 x10^3/uL (0.0-0.2); EOSINOPHILS % (AUTO) 1.2 % (0.9-2.9); HEMATOCRIT 33.1 % (36.0-47.0); HEMOGLOBIN 11.2 g/dL (12.0-16.0); LYMPHOCYTES # (AUTO) 2.5 X10^3/uL (1.3-2.9); LYMPHOCYTES % (AUTO) 25.1 % (21.0-51.0); MEAN CORPUSCULAR HEMOGLOBIN 31.6 pg (27.0-34.0); MEAN CORPUSCULAR HGB CONC 33.9 g/dL (33.0-35.0); MEAN PLATELET VOLUME 7.6 fL (7.4-11.0); MONOCYTES # (AUTO) 0.5 x10^3/uL (0.3-0.8); NEUTROPHILS # (AUTO) 6.7 x10^3/uL (2.2-4.8); NEUTROPHILS % (AUTO) 67.4 % (42.0-75.0); PLATELET COUNT 230 X10^3/uL (150.0-450.0); RED BLOOD COUNT 3.56 X10^6/uL (3.5-5.4); RED CELL DISTRIBUTION WIDTH 13.3 % (11.6-16.5); WHITE BLOOD COUNT 9.9 X10^3/uL (3.6-10.0)
[2023-11-14 06:33] LABS: ALANINE AMINOTRANSFERASE 606 Units/L (12-78); ALBUMIN 3.5 g/dL (3.4-5.0); ALKALINE PHOSPHATASE 91 Units/L (46-116); BLOOD UREA NITROGEN 27 mg/dL (7-18); CALCIUM 8.7 mg/dL (8.5-10.1); CARBON DIOXIDE 30.6 mmol/L (21-32); CHLORIDE 104 mmol/L (98-107); COR NA(FOR HYPERGLY) 144 mmol/L (136-145); CREATININE 1.29 mg/dL (0.55-1.02); GLUCOSE 139 mg/dL (65-99); MAGNESIUM 1.7 mg/dL (2.0-2.9); POTASSIUM 4.3 mmol/L (3.5-5.1); SODIUM 143 mmol/L (136-145); TOTAL PROTEIN 7.3 g/dL (6.4-8.2); eGFR NON BLACK RACES 45 (>60)
[2023-11-14 07:09] LABS: ASPARTATE AMINO TRANSFERASE 1171 Units/L (15-37)
[2023-11-14 07:10] LABS: CREATINE KINASE 14355 Units/L (26-192)
[2023-11-14] MEDS: FARXIGA PO SCH (08:39)
[2023-11-14] MEDS: PROTONIX TAB 40 MG PO SCH (08:40)
--- NOTE | 2023-11-14 10:27 | DR.H&P ---
H&P History & Physical for Day of: H&P Date: 11/14/23 Chief Complaint Chief Complaint: Generalized weakness Fall Allergies Allergies Allergy/AdvReac Type Severity Reaction Status Date / Time No Known Drug Allergies Allergy Verified 11/13/23 11:29 History of Present Illness History of Present Illness: Patient is a 58-year-old female with a past medical history of CHF, CAD, diabetes melitis, and renal disease presenting with generalized weakness and muscle aches since a fall 2 days ago. She presented to the ER and on labs was noted to have elevated creatinine kinase. Labs/imaging: WBC 9.9, hemoglobin 11.2, platelets 230, sodium 143, potassium 4.3, creatinine 1.29, glucose 139, AST 1171, ALT 606, alkaline phosphatase 91, creatinine kinase [id number]. Patient was admitted for rhabdomyolysis. She was started on IV fluids LR@150ml/h. Creatinine kinase is trending down. Patient does have elevated liver enzymes, will order an ultrasound of the liver for further evaluation. Will restart home medications. Continue pain control. Otherwise continue to closely monitor patient and follow-up labs and imaging. Past Medical History Past Medical History: CHF, Coronary Artery Disease, CVA, Diabetes, Migraines, [place] and Renal Disease Additional Medical History: TIA Past Surgical History Surgical History: Cholecystectomy and Hysterectomy Family History Family Medical History: Diabetes Mellitus, Cancer, [place], Coronary Artery Disease and Hypertension Social History Does patient currently use any type of tobacco product: No Have you used tobacco products in the last 12 months: No Type of Tobacco Use: None Does any household member use tobacco: No Alcohol Use: None Drug Use: None Medications Home Medications: Home Medications Medication Instructions Recorded Confirmed Type allopurinol 300 mg tablet 300 mg PO QDAY 07/04/23 11/13/23 History alprazolam 0.5 mg tablet 0.5 mg PO BID PRN 07/04/23 11/13/23 History citalopram 40 mg tablet 40 mg PO QDAY 07/04/23 11/13/23 History dapagliflozin propanediol 10 mg 10 mg PO QDAY 07/04/23 11/13/23 History tablet (Farxiga) fenofibrate nanocrystallized 145 145 mg PO QHS 07/04/23 11/13/23 History mg tablet gabapentin 600 mg tablet 600 mg PO BID 07/04/23 11/13/23 History levetiracetam 500 mg tablet 500 mg PO BID 07/04/23 11/13/23 History meclizine 25 mg tablet 50 mg PO QID PRN 07/04/23 11/13/23 History omeprazole 20 mg capsule,delayed 20 mg PO BID 07/04/23 11/13/23 History release pantoprazole 40 mg tablet,delayed 40 mg PO QDAY 07/04/23 11/13/23 History release tizanidine 4 mg tablet 4 mg PO TID PRN 07/04/23 11/13/23 History erenumab-aooe 140 mg/mL 140 mg subcut QMONTH 11/13/23 11/13/23 History subcutaneous auto-injector (Aimovig Autoinjector) evolocumab 140 mg/mL subcutaneous 140 mg subcut Q2W 11/13/23 11/13/23 History pen injector (Marylin Oquendo) fexofenadine 180 mg tablet 180 mg PO DAILY 11/13/23 11/13/23 History hydrocodone 10 mg-acetaminophen 1 tab PO Q8H PRN 11/13/23 11/13/23 History 325 mg tablet metoprolol tartrate 50 mg tablet 50 mg PO BID 11/13/23 11/13/23 History ondansetron 4 mg disintegrating 4 mg PO Q8H PRN 11/13/23 11/13/23 History tablet tirzepatide 2.5 mg/0.5 mL 2.5 mg subcut QWEEK 11/13/23 11/13/23 History subcutaneous pen injector (Yovany) verapamil 240 mg tablet,extended 240 mg PO DAILY 11/13/23 11/13/23 History release Labs 11/14/23 05:49 11/14/23 05:49 Labs: Laboratory WBC 9.9 X10^3/uL (3.6-10.0) 11/14/23 05:49 RBC 3.56 X10^6/uL (3.5-5.4) 11/14/23 05:49 Hgb 11.2 g/dL (12.0-16.0) L 11/14/23 05:49 Hct 33.1 % (36.0-47.0) L 11/14/23 05:49 MCV 93.0 fL (80.0-100.0) 11/14/23 05:49 MCH 31.6 pg (27.0-34.0) 11/14/23 05:49 MCHC 33.9 g/dL (33.0-35.0) 11/14/23 05:49 RDW 13.3 % (11.6-16.5) 11/14/23 05:49 Plt Count 230 X10^3/uL (150.0-450.0) 11/14/23 05:49 MPV 7.6 fL (7.4-11.0) 11/14/23 05:49 Neut % (Auto) 67.4 % (42.0-75.0) 11/14/23 05:49 Lymph % (Auto) 25.1 % (21.0-51.0) 11/14/23 05:49 [place] % (Auto) 5.0 % (0.0-13.0) 11/14/23 05:49 Eos % (Auto) 1.2 % (0.9-2.9) 11/14/23 05:49 Baso % (Auto) 1.3 % (0.2-1.0) H 11/14/23 05:49 Neut # (Auto) 6.7 x10^3/uL (2.2-4.8) H 11/14/23 05:49 Lymph # (Auto) 2.5 X10^3/uL (1.3-2.9) 11/14/23 05:49 [place] # (Auto) 0.5 x10^3/uL (0.3-0.8) 11/14/23 05:49 Eos # (Auto) 0.1 x10^3/uL (0.0-0.2) 11/14/23 05:49 Baso # (Auto) 0.1 X10^3/uL (0.0-0.1) 11/14/23 05:49 Absolute Nucleated RBC 0.1 /100WBC 11/14/23 05:49 Sodium 143 mmol/L (136-145) 11/14/23 05:49 Corrected Sodium 144 mmol/L (136-145) 11/14/23 05:49 Potassium 4.3 mmol/L (3.5-5.1) 11/14/23 05:49 Chloride 104 mmol/L (98-107) 11/14/23 05:49 Carbon Dioxide 30.6 mmol/L (21-32) 11/14/23 05:49 BUN 27 mg/dL (7-18) H 11/14/23 05:49 Creatinine 1.29 mg/dL (0.55-1.02) H 11/14/23 05:49 Est GFR (MDRD) Af Amer 54 (>60) L 11/14/23 05:49 Est GFR (MDRD) Non-Af 45 (>60) L 11/14/23 05:49 Glucose 139 mg/dL (65-99) H 11/14/23 05:49 POC Glucose (mg/dL) 142 mg/dL (65-99) H 11/14/23 04:58 Calcium 8.7 mg/dL (8.5-10.1) 11/14/23 05:49 Corrected Calcium TNP 11/14/23 05:49 Magnesium 1.7 mg/dL (2.0-2.9) L 11/14/23 05:49 Total Bilirubin 0.50 mg/dL (0.2-1.0) 11/14/23 05:49 AST 1171 Units/L (15-37) H 11/14/23 05:49 ALT 606 Units/L (12-78) H 11/14/23 05:49 Alkaline Phosphatase 91 Units/L (46-116) 11/14/23 05:49 Creatine Kinase 56570 Units/L (26-192) H 11/14/23 05:49 Total Protein 7.3 g/dL (6.4-8.2) 11/14/23 05:49 Albumin 3.5 g/dL (3.4-5.0) 11/14/23 05:49 Globulin 3.8 g/dL (2.5-4.5) 11/14/23 05:49 Albumin/Globulin Ratio 0.9 Ratio (1.1-2.1) L 11/14/23 05:49 Lipase 22 Units/L (16-77) 11/13/23 11:30 TSH 3rd Generation 2.664 uIU/mL (0.358-3.74) 11/13/23 11:30 Review of Systems Constitutional: Weakness Eyes: No Symptoms Reported ENT: No Symptoms Reported Respiratory: No Symptoms Reported Cardiovascular: No Symptoms Reported Gastrointestinal: No Symptoms Reported Genitourinary: No Symptoms Reported Musculoskeletal: Back Pain Skin: No Symptoms Reported Neurological: No Symptoms Reported Physical Exam Vital Signs: Vital Signs Temperature 97.5 F Temperature 98.3 F Pulse Rate [Brachial] 94 Pulse Rate [Brachial] 89 Respiratory Rate 20 Respiratory Rate 20 Respiratory Rate 16 Respiratory Rate 20 Respiratory Rate 21 Respiratory Rate 22 Blood Pressure [Right Arm] 136/70 Blood Pressure [Right Arm] 149/64 O2 Sat by Pulse Oximetry 94 O2 Sat by Pulse Oximetry 90 Oriented: Normal Eyes: Normal Ear: Normal Nose: Normal Throat: Normal Respiratory: Clear Throughout Cardiovascular: Normal : Normal Auscultation: Bowel Sounds: Normal Palpation: Normal Tenderness: Normal Skin: Normal Musculoskeletal: Normal Psychiatric: Normal Mood Description: Calm and Appropriate Affect: Normal Speech Pattern: Clear and Appropriate Assessment/Plan (1) Rhabdomyolysis: Status: Acute Plan: Continue IVF Trend CK (2) Elevated liver enzymes: Status: Acute Plan: Liver U/S ordered Continue to monitor (3) Essential hypertension: Status: Chronic (4) Hyperlipidemia: Status: Chronic (5) Generalized anxiety disorder: Status: Chronic (6) DM II (diabetes mellitus, type II), controlled: 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
--- NOTE | 2023-11-14 16:58 | US ---
EXAM:LIVERHISTORY:ELEVATED LFT'S ;COMPARISON:NoneTECHNIQUE:53 images made by the cryptographic technician. Carpenter scale and color-flow images of the right upper quadrant were obtained.FINDINGS:The liver has diffuse increased echogenicity suggesting medical liver disease. The most common etiology for this finding is steatosis; but cirrhosis, chronic hepatitis, and deposition disorders can have a similar appearance. The liver is large measuring over 20 cm right mid clavicular line. No mass or intrahepatic biliary duct dilatation is present. The intrahepatic inferior vena cava was imaged. The visualized hepatic veins are patent with blood flow toward the right atrium.Pancreas was not well seen because of poor acoustic window.No gallbladder is identified consistent with prior cholecystectomy. No extrahepatic biliary duct dilatation; common duct is normal.The right kidney is normal in size and echogenicity. No hydronephrosis.IMPRESSION:1. Hepatomegaly2. Medical liver disease, possibly steatosisTHIS IS AN ELECTRONICALLY VERIFIED FINAL REPORT11/14/2023 4:55 PM - Electronically signed by Douglas Durbin MD
[2023-11-15 01:24] LABS: BILIRUBIN,URINE NEGATIVE (NEGATIVE); BLOOD/HEMOGLOBIN,URINE NEGATIVE (NEGATIVE); GLUCOSE, URINE 4+ (NEGATIVE); KETONES,URINE NEGATIVE (NEGATIVE); LEUKOCYTE ESTERASE ,URINE NEGATIVE (NEGATIVE); NITRITES,URINE NEGATIVE (NEGATIVE); PROTEIN,URINE NEGATIVE (NEGATIVE); UROBILINOGEN,URINE 1+ (NORMAL)
[2023-11-15 01:33] LABS: APPEARANCE,URINE CLEAR (CLEAR); COLOR,URINE YELLOW (YELLOW)
[2023-11-15 01:34] LABS: BACTERIA,URINE NEGATIVE /HPF (NEGATIVE); RBC,URINE NONE SEEN /HPF (0-3); SQUAMOUS EPITHELIAL CELL,UR RARE /HPF (NEGATIVE)
[2023-11-15 06:13] LABS: BASOPHILS # (AUTO) 0.1 X10^3/uL (0.0-0.1); BASOPHILS % (AUTO) 0.6 % (0.2-1.0); EOSINOPHILS # (AUTO) 0.1 x10^3/uL (0.0-0.2); EOSINOPHILS % (AUTO) 1.6 % (0.9-2.9); HEMATOCRIT 33.4 % (36.0-47.0); HEMOGLOBIN 11.3 g/dL (12.0-16.0); LYMPHOCYTES # (AUTO) 1.6 X10^3/uL (1.3-2.9); MEAN CORPUSCULAR HEMOGLOBIN 31.6 pg (27.0-34.0); MEAN CORPUSCULAR VOLUME 92.8 fL (80.0-100.0); MEAN PLATELET VOLUME 7.4 fL (7.4-11.0); MONOCYTES # (AUTO) 0.4 x10^3/uL (0.3-0.8); MONOCYTES % (AUTO) 4.2 % (0.0-13.0); NEUTROPHILS # (AUTO) 6.6 x10^3/uL (2.2-4.8); NEUTROPHILS % (AUTO) 75.6 % (42.0-75.0); PLATELET COUNT 246 X10^3/uL (150.0-450.0); RED CELL DISTRIBUTION WIDTH 13.1 % (11.6-16.5); WHITE BLOOD COUNT 8.7 X10^3/uL (3.6-10.0)
[2023-11-15 06:25] LABS: ALANINE AMINOTRANSFERASE 593 Units/L (12-78); ALBUMIN 3.2 g/dL (3.4-5.0); ALKALINE PHOSPHATASE 95 Units/L (46-116); ASPARTATE AMINO TRANSFERASE 844 Units/L (15-37); BLOOD UREA NITROGEN 13 mg/dL (7-18); CARBON DIOXIDE 31.5 mmol/L (21-32); CHLORIDE 103 mmol/L (98-107); COR CA(FOR HYPOALB) 9.6 mg/dL (8.5-10.1); COR NA(FOR HYPERGLY) 143 mmol/L (136-145); CREATININE 1.01 mg/dL (0.55-1.02); GLUCOSE 142 mg/dL (65-99); POTASSIUM 4.1 mmol/L (3.5-5.1); SODIUM 142 mmol/L (136-145); TOTAL PROTEIN 7.2 g/dL (6.4-8.2); eGFR NON BLACK RACES 60 (>60)
[2023-11-15 08:18] LABS: MAGNESIUM 1.5 mg/dL (2.0-2.9)
--- NOTE | 2023-11-15 09:28 | PCM.PROG ---
Progress Note Progress Note for Day of Date of Exam: 11/15/23 Subjective Subjective: Patient is a 58-year-old female with a past medical history of CHF, CAD, diabetes mellitus, and renal disease admitted for rhabdomyolysis. Labs/imaging: WBC 8.7, hemoglobin 11.3, platelets 246, sodium 142, potassium 4.1, creatinine 1.01, glucose 142, AST 844, ALT 593, alkaline phosphatase 95, creatinine kinase [id number]>[id number]. Will continue IV fluids LR@150ml/h. Creatinine kinase continues to trend down. Elevated liver enzymes trending down, Ultrasound of the liver revealed hepatic steatosis. Home medications have been resumed. Continue pain control. Otherwise continue to closely monitor patient and follow-up labs and imaging. Past Medical Family Social History Allergies: Allergies No Known Drug Allergies Allergy (Verified 11/13/23 11:29) Review of Systems ROS changes noted: see HPI Vital Signs and I&O's Vital Signs: Vital Signs Temperature 97.6 F Pulse Rate [Brachial] 83 Respiratory Rate 20 Respiratory Rate 20 Respiratory Rate 20 Blood Pressure [Right Arm] 178/88 O2 Sat by Pulse Oximetry 95 Intake and Output: Intake & Output 11/12/23 11/13/23 11/14/23 11/15/23 23:59 23:59 23:59 23:59 Intake Total 2505 / 2505 4009 / 4009 100 / 100 Output Total Balance 2504 / 2504 4009 / 4009 100 / 100 Physical Exam Oriented: Normal Eyes: Normal Ear: Normal Nose: Normal Throat: Normal Respiratory: Normal Cardiovascular: Normal : Normal Auscultation: Bowel Sounds: Normal Tenderness: Normal Skin: Normal Musculoskeletal: Normal Psychiatric: Normal Mood Description: Calm and Appropriate Affect: Normal Speech Pattern: Clear and Appropriate Laboratory and Diagnostics 11/15/23 05:50 11/15/23 05:50 Labs: Laboratory WBC 8.7 X10^3/uL (3.6-10.0) 11/15/23 05:50 RBC 3.60 X10^6/uL (3.5-5.4) 11/15/23 05:50 Hgb 11.3 g/dL (12.0-16.0) L 11/15/23 05:50 Hct 33.4 % (36.0-47.0) L 11/15/23 05:50 MCV 92.8 fL (80.0-100.0) 11/15/23 05:50 MCH 31.6 pg (27.0-34.0) 11/15/23 05:50 MCHC 34.0 g/dL (33.0-35.0) 11/15/23 05:50 RDW 13.1 % (11.6-16.5) 11/15/23 05:50 Plt Count 246 X10^3/uL (150.0-450.0) 11/15/23 05:50 MPV 7.4 fL (7.4-11.0) 11/15/23 05:50 Neut % (Auto) 75.6 % (42.0-75.0) H 11/15/23 05:50 Lymph % (Auto) 18.0 % (21.0-51.0) L 11/15/23 05:50 [place] % (Auto) 4.2 % (0.0-13.0) 11/15/23 05:50 Eos % (Auto) 1.6 % (0.9-2.9) 11/15/23 05:50 Baso % (Auto) 0.6 % (0.2-1.0) 11/15/23 05:50 Neut # (Auto) 6.6 x10^3/uL (2.2-4.8) H 11/15/23 05:50 Lymph # (Auto) 1.6 X10^3/uL (1.3-2.9) 11/15/23 05:50 [place] # (Auto) 0.4 x10^3/uL (0.3-0.8) 11/15/23 05:50 Eos # (Auto) 0.1 x10^3/uL (0.0-0.2) 11/15/23 05:50 Baso # (Auto) 0.1 X10^3/uL (0.0-0.1) 11/15/23 05:50 Absolute Nucleated RBC 0.1 /100WBC 11/15/23 05:50 Sodium 142 mmol/L (136-145) 11/15/23 05:50 Corrected Sodium 143 mmol/L (136-145) 11/15/23 05:50 Potassium 4.1 mmol/L (3.5-5.1) 11/15/23 05:50 Chloride 103 mmol/L (98-107) 11/15/23 05:50 Carbon Dioxide 31.5 mmol/L (21-32) 11/15/23 05:50 BUN 13 mg/dL (7-18) 11/15/23 05:50 Creatinine 1.01 mg/dL (0.55-1.02) 11/15/23 05:50 Est GFR (MDRD) Af Amer > 60 (>60) 11/15/23 05:50 Est GFR (MDRD) Non-Af 60 (>60) 11/15/23 05:50 Glucose 142 mg/dL (65-99) H 11/15/23 05:50 POC Glucose (mg/dL) 148 mg/dL (65-99) H 11/15/23 05:08 Calcium 9.0 mg/dL (8.5-10.1) 11/15/23 05:50 Corrected Calcium 9.6 mg/dL (8.5-10.1) 11/15/23 05:50 Magnesium 1.5 mg/dL (2.0-2.9) L 11/15/23 05:50 Total Bilirubin 0.60 mg/dL (0.2-1.0) 11/15/23 05:50 AST 844 Units/L (15-37) H 11/15/23 05:50 ALT 593 Units/L (12-78) H 11/15/23 05:50 Alkaline Phosphatase 95 Units/L (46-116) 11/15/23 05:50 Creatine Kinase 6434 Units/L (26-192) H 11/15/23 05:50 Total Protein 7.2 g/dL (6.4-8.2) 11/15/23 05:50 Albumin 3.2 g/dL (3.4-5.0) L 11/15/23 05:50 Globulin 4.0 g/dL (2.5-4.5) 11/15/23 05:50 Albumin/Globulin Ratio 0.8 Ratio (1.1-2.1) L 11/15/23 05:50 Lipase 22 Units/L (16-77) 11/13/23 11:30 TSH 3rd Generation 2.664 uIU/mL (0.358-3.74) 11/13/23 11:30 Specimen Type Clean catch urine 11/15/23 01:10 Urine Color Yellow (YELLOW) 11/15/23 01:10 Urine Appearance Clear (CLEAR) 11/15/23 01:10 Urine pH 7.0 (5.0 - 8.0) 11/15/23 01:10 Ur Specific [place] 1.015 (1.000-1.030) 11/15/23 01:10 Urine Protein Negative (NEGATIVE) 11/15/23 01:10 Urine Glucose (UA) 4+ (NEGATIVE) 11/15/23 01:10 Urine Ketones Negative (NEGATIVE) 11/15/23 01:10 Urine Blood Negative (NEGATIVE) 11/15/23 01:10 Urine Nitrite Negative (NEGATIVE) 11/15/23 01:10 Urine Bilirubin Negative (NEGATIVE) 11/15/23 01:10 Urine Urobilinogen 1+ (NORMAL) 11/15/23 01:10 Ur Leukocyte Esterase Negative (NEGATIVE) 11/15/23 01:10 Urine RBC None seen /HPF (0-3) 11/15/23 01:10 Urine WBC None seen /HPF (0-5) 11/15/23 01:10 Ur Squamous Epith Cells Rare /HPF (NEGATIVE) 11/15/23 01:10 Urine Bacteria Negative /HPF (NEGATIVE) 11/15/23 01:10 Ur Culture Indicated? 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
[2023-11-15] MEDS ORDERED: CONSULT PHARMACY - POTASSIUM & MAGNESIUM XX SCH (16:00)
[2023-11-15] MEDS: LR 1,000 ML IV 1,000 ML with MAGNESIUM SULFATE 50% INJ VIAL 1 G IV SCH (16:09)
[2023-11-15 18:31] LABS: CRYPTOSPORIDIUM PARVUM ANTIGEN NEGATIVE (NEGATIVE); GIARDIA LAMBLIA ANTIGEN NEGATIVE (NEGATIVE)
[2023-11-15] MEDS: MAALOX or MYLANTA PO PRN (19:46)
[2023-11-15] MEDS: VSL#3 PROBIOTIC CAP 112.5 B PO SCH (20:59)
[2023-11-15] MEDS: CYTOTEC PO SCH (21:00)
[2023-11-16] VITALS: RESP 18
[2023-11-16 05:02] VITALS: O2SAT 94
[2023-11-16 07:15] LABS: BASOPHILS # (AUTO) 0.1 X10^3/uL (0.0-0.1); EOSINOPHILS # (AUTO) 0.1 x10^3/uL (0.0-0.2); EOSINOPHILS % (AUTO) 1.7 % (0.9-2.9); HEMATOCRIT 32.6 % (36.0-47.0); HEMOGLOBIN 11.1 g/dL (12.0-16.0); LYMPHOCYTES # (AUTO) 2.6 X10^3/uL (1.3-2.9); LYMPHOCYTES % (AUTO) 32.2 % (21.0-51.0); MEAN CORPUSCULAR HEMOGLOBIN 31.6 pg (27.0-34.0); MEAN CORPUSCULAR HGB CONC 34.1 g/dL (33.0-35.0); MEAN CORPUSCULAR VOLUME 92.8 fL (80.0-100.0); MEAN PLATELET VOLUME 7.2 fL (7.4-11.0); MONOCYTES # (AUTO) 0.4 x10^3/uL (0.3-0.8); MONOCYTES % (AUTO) 5.5 % (0.0-13.0); NEUTROPHILS # (AUTO) 4.8 x10^3/uL (2.2-4.8); NEUTROPHILS % (AUTO) 59.6 % (42.0-75.0); PLATELET COUNT 251 X10^3/uL (150.0-450.0); RED BLOOD COUNT 3.51 X10^6/uL (3.5-5.4); RED CELL DISTRIBUTION WIDTH 12.9 % (11.6-16.5)
[2023-11-16 07:39] LABS: ALANINE AMINOTRANSFERASE 472 Units/L (12-78); ALKALINE PHOSPHATASE 86 Units/L (46-116); ASPARTATE AMINO TRANSFERASE 445 Units/L (15-37); BLOOD UREA NITROGEN 10 mg/dL (7-18); CALCIUM 8.9 mg/dL (8.5-10.1); CHLORIDE 103 mmol/L (98-107); COR CA(FOR HYPOALB) 9.7 mg/dL (8.5-10.1); COR NA(FOR HYPERGLY) 143 mmol/L (136-145); CREATININE 0.99 mg/dL (0.55-1.02); GLUCOSE 122 mg/dL (65-99); POTASSIUM 3.5 mmol/L (3.5-5.1); SODIUM 142 mmol/L (136-145); TOTAL PROTEIN 6.7 g/dL (6.4-8.2); eGFR NON BLACK RACES > 60 (>60)
[2023-11-16 07:41] LABS: CREATINE KINASE 2508 Units/L (26-192)
[2023-11-16 08:43] VITALS: BP 178/89; PULSE 82; TEMP 97.8
== END 2023-11-16 11:52 | disposition home or self-care (01) | DRG 558 ==
LOC: ER 11:19 → MED/SURG 14:40
PROVIDERS: ADMIT Internal Medicine; ATTEND Internal Medicine